=== PATIENT | male | born 1940 | race African-American/Black ===

== ENCOUNTER 2016-11-02 21:35 | Emergency (ER) | payer OTHER, MEDICARE ==
[~2016-11-02] VITALS: Ht 175.3 cm; Wt 83.9 kg
[~2016-11-02 21:35] MED LIST: AMLODIPINE BESY10 M1 PO; CLOPIDOGREL75 M1 PO; CYCLOBENZAPRINE5 M2 PO; DOXYCYCLINE HY100 M2 PO; GLIPIZIDE5 M2 PO; HYDRODIURIL 2525 MG PO; JANUVIA50 M1 PO; LISINOPRIL20 M1 PO; METHOTREXATE2.5 M2 PO; METOPROLOL SUCC25 M1 PO; NASONEX17 GM NASB; NEXIUM 40MG40 MG PO; PREDNISONE5 M1 PO; TESSALON PERLE100 M1 PO; TYLENOL WITH C1 EACH PO
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
--- NOTE | 2016-11-02 23:19 | RADIOLOGY REPORT ---
EXAMINATION: XR PELVIS AND HIP, LEFT XR ELBOW, LEFT CLINICAL INFORMATION: Fall. Left elbow and hip strike. Pain. Rule out fracture. COMPARISON: CT abdomen pelvis dated 06/11/2015. TECHNIQUE: AP view the pelvis and AP and frog-leg lateral views of the left hip. AP, lateral, and both oblique views of the left elbow FINDINGS: Pelvis and left hip: No acute fracture or malalignment. Minimal degenerative arthritis is present in the hips, characterized by small marginal osteophytes. SI joints are well-preserved. Calcific atherosclerosis is present in the iliac arteries. There is mild degenerative spondylosis in the lower lumbar spine. Left elbow: No fracture or malalignment. No joint effusion. Joint spaces are well-preserved. Tiny marginal osteophytes are present at the olecranon and coronoid process. Soft tissues are unremarkable. IMPRESSION: 1. No acute fracture or malalignment in the pelvis, left hip, and left elbow. 2. Minimal degenerative arthritis in the hips and left elbow.
[2016-11-02 23:58] VITALS: BP 176/85
== END 2016-11-03 00:03 ==
LOC: ERH 21:35
DX: S50.02XA Contusion of left elbow, initial encounter (principal); S70.02XA Contusion of left hip, initial encounter; Z79.01 Long term (current) use of anticoagulants; W19.XXXA Unspecified fall, initial encounter
CPT/HCPCS: 73080-LT; 73502-LT

== ENCOUNTER 2017-04-14 10:30 | Emergency (ER) | payer OTHER, MEDICARE ==
[~2017-04-14] VITALS: Ht 175.3 cm; Wt 84.8 kg
--- NOTE | 2017-04-14 12:10 | ED GI/GU/ABDOMINAL COMPLAINT ---
History of Present Illness General Chief Complaint: Abdominal Pain/Flank Pain Stated Complaint: ABD PAIN X 2WEEKS Source: patient Exam Limitations: no limitations Vital Signs & Intake/Output Vital Signs & Intake/Output Vital Signs Date Time Temp Pulse Resp B/P B/P Pulse O2 O2 Flow FiO2 Mean Ox Delivery Rate 04/14 1552 97.9 58 18 165/80 100 Room Air 04/14 1335 97.3 51 18 169/81 98 Room Air 04/14 1057 99.2 60 18 207/93 97 Room Air Allergies Coded Allergies: aspirin (SOB 11/02/16) Reconcile Medications Amlodipine Besylate 10 MG TABLET 1 TAB PO DAILY HEART (Reported) Atorvastatin Calcium 40 MG TABLET 1 TAB PO DAILY CHOLESTEROL (Reported) Clopidogrel Bisulfate (Clopidogrel) 75 MG TABLET 1 TAB PO DAILY BLOOD THINNER (Reported) Folic Acid 1 MG TABLET 1 TAB PO DAILY SUPPLEMENT (Reported) Glipizide 5 MG TABLET 1 TAB PO DAILY DIABETES (Reported) Lisinopril 20 MG TABLET 1.5 TAB PO DAILY HEART (Reported) Magnesium Citrate (Citrate Of Magnesia) 300 ML SOLUTION 296 ML PO ONCE PRN CONSTIPATION Methotrexate 2.5 MG TABLET 6 TAB PO QWED RA (Reported) Metoprolol Succinate 25 MG TAB 1 TAB PO DAILY HEART (Reported) Mometasone Furoate (Nasonex) 50 MCG SPRAY.PUMP 2 SPRAY NASB DAILY PRN congestion Omeprazole Magnesium (Prilosec Otc) 20 MG TABLET.DR 1 TAB PO DAILY GASTRITIS Prednisone 5 MG TABLET 1 TAB PO DAILY RA (Reported) Sitagliptin Phosphate (Januvia) 50 MG TABLET 1 TAB PO DAILY DIABETES ( Reported) Triage Note: 76 YEAR OLD MALE STATES THAT FOR THE PAST 2 WEEKS HE HAS BEEN HAVING MID ABD CRAMPING, PT HAS BEEN TAKING OTC ZANTAC WITH NO RELIEF, HAS BEEN CONTIPATED AND BURPING ALOT . DENIES CP/SOB, DENIES URINARY SYMPTOMS. Triage Nurses Notes Reviewed? yes Duration: intermittent Timing: recent history Severity Numbers: 5 Location: epigastric Radiation: no radiation HPI: PT is a 76-year-old male with a past medical history of rheumatoid arthritis currently on methotrexate, hypertension, type 2 diabetes, hyperlipidemia and CVA with left-sided hemiparesis currently on Plavix who presents emergency room with a two-week history of intermittent epigastric pain that is made worse after lying down at night after eating and made better with by mouth intake. Patient denies any alcohol use or NSAID use. Patient states that he is tried multiple medications [id number] with no relief of symptoms which IS WHY patient presents to the emergency room. Last bowel movement was yesterday no blood no melena noted. Denies any fever chills,chest pain Shortness of breath cough hemoptysis back pain nausea vomiting. Patient also has tried Zantac with no relief of symptoms. Patient does admit to "stringy" bowel movements and has not had a "good bowel movement" since symptoms began Patient tried [id number] stool softener with temporary relief of symptoms however symptoms a bowel movement CHANGES has still persisted (ANJU HAHN) Past History Travel History Traveled to [place] past 21 day No Medical History Any Pertinent Medical History? 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 No (ANJU HAHN) Review of Systems Review of Systems Constitutional: Reports: no symptoms. EENTM: Reports: no symptoms. Respiratory: Reports: no symptoms. Cardiovascular: Reports: no symptoms. GI: Reports: see HPI, abdominal pain. Genitourinary: Reports: no symptoms. Musculoskeletal: Reports: no symptoms. Skin: Reports: no symptoms. Neurological/Psychological: Reports: no symptoms. Hematologic/Endocrine: Reports: no symptoms. Immunologic/Allergic: Reports: no symptoms. All Other Systems: Reviewed and Negative (ANJU HAHN) Physical Exam Physical Exam General Appearance: no apparent distress, alert Gastrointestinal: normal bowel sounds, soft, MINIMAL EPIGASTRIC PAIN, NO RUQ PAIN, NO RLQ PAIN, NO REBOUND TENDERNESS NO PERITONEAL PAIN Comments: Well-developed well-nourished person in no acute distress HEENT: Normal EENT exam Neck: Supple, no lymphadenopathy, normal range of motion without pain or tenderness Back: Nontender, no CVA tenderness. Cardiovascular: Regular rate and rhythms no murmurs rubs or gallops, normal JVP Respiratory: Chest nontender. No respiratory distress.breath sounds clear to auscultation bilaterally Extremity: No edema, no calf tenderness to palpation, normal and equal pulses. Neuro: Alert oriented x3, motor sensory normal, Skin: No appreciable rash on exposed skin, skin is warm and dry. Psych: Mood and affect is normal, memory and judgment is normal. Core Measures ACS in differential dx? Yes Severe Sepsis Present: No Septic Shock Present: No (ELISA VALENTINO,ANJU) Progress Differential Diagnosis: AAA, AMI, appendicitis, biliary colic, bowel obstruction , colon cancer, cholecystitis, diverticulitis, epididymitis, esophageal varices, gastritis, hepatitis, hernia, hemorrhoids, ischemic bowel, inflamm bowel dis, Shara-Meg tear, pancreatitis, prostatitis, peptic ulcer, PUD/GERD, perforated viscous, pyelonephritis, SBO, ureterolithiasis, urethritis, UTI/pyelo Plan of Care: Orders Procedure Date/time Status TROPONIN LEVEL 04/14 1500 Complete EKG 04/14 1500 Active EKG 04/14 1220 Active TROPONIN LEVEL 04/14 1210 Complete LIPASE 04/14 1148 Complete COMPREHENSIVE METABOLIC PANEL 04/14 1148 Complete CBC WITHOUT DIFFERENTIAL 04/14 1148 Complete AMYLASE 04/14 1148 Complete Laboratory Tests 04/14/17 1454: Troponin I < 0.01 04/14/17 1218: Troponin I Cancelled 04/14/17 1210: Anion Gap 12, Estimated GFR > 60, BUN/Creatinine Ratio 10.0, Glucose 127 H, Calcium 10.4 H, Total Bilirubin 0.8, AST 43, ALT 51, Alkaline Phosphatase 55, Troponin I < 0.01, Total Protein 7.9, Albumin 4.5, Globulin 3.4, Albumin/ Globulin Ratio 1.3, Amylase 75, Lipase 77, CBC w Diff NO MAN DIFF REQ, RBC 5.33, MCV 78.6 L, MCH 24.6 L, RDW 16.4 H, MPV 10.3, Gran % 72.9, Lymphocytes % 18.8 L, Monocytes % 5.8, Eosinophils % 2.4, Basophils % 0.1, Absolute Granulocytes 4.3, Absolute Lymphocytes 1.1 L, Absolute Monocytes 0.3, Absolute Eosinophils 0.1, Absolute Basophils 0, PUBS MCHC 31.2 L Patient on initial examination was no apparent distress and had minimal epigastric point tenderness patient otherwise had no other abdominal pain upon palpation. Patient denies any cardiovascular or respiratory complaints. Denies any melena or bright red blood after bowel movements. Patient declines pain medications when offered Patient was given GI cocktail and had complete resolution of his presenting epigastric discomfort. Patient was able tolerate by mouth and discharged. Patient had unremarkable blood work and EKG. Patient was strongly advised to follow up with [facility] Dr. Scott Patient will be prescribed PPI and bowel promotion medications. Discussed disposition plan with Dr. ARGUELLO who agrees with disposition and plan Due to history of present illness and exam findings and complete resolution of his symptoms with GI cocktail their suspicion of peptic ulcer involvement of the proximal SMALL INTESTINE Prior to discharge patient received repeat troponin and EKG in which they were unremarkable Again patient denied any cardiovascular complaints or chest pain associated with his symptoms (ANJU HAHN) Initial ED EKG: NOTED MULTIPLE ARTIFACT WITH 60 BPM SINUS RHYTHM Prior EKG: unchanged (ANJU HAHN) Departure Departure Disposition: HOME OR SELF CARE Condition: Stable Clinical Impression Primary Impression: Constipation Secondary Impressions: Colitis Referrals: LILI REID,REAGAN HOLT DO (PCP/Family) Additional Instructions: As discussed please avoid lying down after you eat a meal. Begin the prescription of Prilosec as directed for your symptoms and continue over-the- counter stool softeners and begin the prescription of magnesium citrate to improve your bowel production. On Monday if symptoms still persist follow-up with gastroenterology Dr. Scott. Prescription is awaiting a [facility]. If symptoms worsen return to emergency room Departure Forms: Customer Survey General Discharge Information Prescriptions: Current Visit Scripts Omeprazole Magnesium (Prilosec Otc) 1 TAB PO DAILY #30 TAB Magnesium Citrate (Citrate Of Magnesia) 296 ML PO ONCE PRN CONSTIPATION #296 ML Ref 1 (ANJU HAHN) PA/TELECOMMUNICATION SYSTEMS DESIGNER Co-Sign Statement Statement: ED Attending supervision documentation- [X] I saw and evaluated the patient. I have also reviewed all the pertinent lab results and diagnostic results. I agree with the findings and the plan of care as documented in the PA's/TELECOMMUNICATION SYSTEMS DESIGNER's documentation. [] I have reviewed the ED Record and agree with the PA's/TELECOMMUNICATION SYSTEMS DESIGNER's documentation. [] Additions or exceptions (if any) to the PAs/TELECOMMUNICATION SYSTEMS DESIGNER's note and plan are summarized below: [] (ENRIQUE ARGUELLO DO
[2017-04-14 12:33] LABS: ABSOLUTE BASOPHIL COUNT 0 /CUMM (0.0-0.2); ABSOLUTE EOSINOPHIL COUNT 0.1 /CUMM (0.0-0.7); ABSOLUTE GRANULOCYTE CT 4.3 /CUMM (1.4-6.5); ABSOLUTE LYMPH COUNT 1.1 /CUMM (1.2-3.4); ABSOLUTE MONOCYTE COUNT 0.3 /CUMM (0.10-0.60); BASOPHIL % 0.1 % (0.0-2.0); EOSINOPHIL % 2.4 % (0-5); GRANULOCYTE % 72.9 % (42.2-75.2); HEMATOCRIT 41.9 % (42-52); MEAN CORPUSCULAR HGB 24.6 PG (27.0-31.0); MEAN CORPUSCULAR HGB CONC 31.2 G/DL (33.0-37.0); MEAN CORPUSCULAR VOLUME 78.6 FL (80.0-94.0); MEAN PLATELET VOLUME 10.3 FL (7.4-10.4); PLATELET COUNT 207 /CUMM (130-400); RBC DISTRIBUTION WIDTH 16.4 % (11.5-14.5); RED BLOOD CELL CT 5.33 /CUMM (4.70-6.10); WHITE BLOOD CELL COUNT 5.9 /CUMM (4.8-10.8)
[2017-04-14] MEDS ORDERED: FOLIC ACID1 M1 PO (12:36)
[2017-04-14] MEDS ORDERED: ATORVASTATIN CA40 M1 PO (12:36)
[2017-04-14] MEDS ORDERED: CITRATE OF MAG300 ML PO (14:05)
[2017-04-14] MEDS ORDERED: PRILOSEC OTC20 M1 PO (14:05)
[2017-04-14 15:52] VITALS: BP 165/80
== END 2017-04-14 15:52 ==
LOC: ERH 10:30
PROVIDERS: Emergency Medicine
DX: K59.00 Constipation, unspecified (principal); K52.9 Noninfective gastroenteritis and colitis, unspecified; I10 Essential (primary) hypertension; E11.9 Type 2 diabetes mellitus without complications; Z79.84 Long term (current) use of oral hypoglycemic drugs
CPT/HCPCS: 93005; 93010

== ENCOUNTER 2017-11-08 21:34 | Inpatient (IN) | payer OTHER, MEDICARE ==
[~2017-11-08] VITALS: Ht 175.3 cm; Wt 84.4 kg
[~2017-11-08 21:34] MED LIST changes: +ATORVASTATIN CA40 M1 PO; +CITRATE OF MAG300 ML PO; +FOLIC ACID1 M1 PO; +PRILOSEC OTC20 M1 PO
--- NOTE | 2017-11-08 22:25 | ED GI/GU/ABDOMINAL COMPLAINT ---
History of Present Illness General Chief Complaint: General Adult Stated Complaint: "SHAKEY/NAUSEA" PER PT Source: patient Exam Limitations: no limitations Vital Signs & Intake/Output Vital Signs & Intake/Output Vital Signs Date Time Temp Pulse Resp B/P B/P Pulse O2 O2 Flow FiO2 Mean Ox Delivery Rate 11/09 0251 97 Room Air 11/09 0250 96.8 66 18 178/86 97 Room Air 11/09 0047 181/88 11/08 2340 200/90 11/08 2255 95 20 181/96 96 Room Air 11/08 2142 98.5 100 18 195/95 96 Room Air ED Intake and Output 11/09 0000 11/08 1200 Intake Total Output Total Balance Patient 185 lb Weight Weight Reported by Patient Measurement Method Allergies Coded Allergies: aspirin (SOB 11/02/16) Reconcile Medications Amlodipine Besylate 10 MG TABLET 1 TAB PO DAILY HEART (Reported) Atorvastatin Calcium 40 MG TABLET 1 TAB PO DAILY CHOLESTEROL (Reported) Clopidogrel Bisulfate (Clopidogrel) 75 MG TABLET 1 TAB PO DAILY BLOOD THINNER (Reported) Folic Acid 1 MG TABLET 1 TAB PO DAILY SUPPLEMENT (Reported) Glipizide 5 MG TABLET 1 TAB PO DAILY DIABETES (Reported) Lisinopril 20 MG TABLET 1.5 TAB PO DAILY HEART (Reported) Magnesium Citrate (Citrate Of Magnesia) 300 ML SOLUTION 296 ML PO ONCE PRN CONSTIPATION Methotrexate 2.5 MG TABLET 6 TAB PO QWED RA (Reported) Metoprolol Succinate 25 MG TAB 1 TAB PO DAILY HEART (Reported) Mometasone Furoate (Nasonex) 50 MCG SPRAY.PUMP 2 SPRAY NASB DAILY PRN congestion Omeprazole Magnesium (Prilosec Otc) 20 MG TABLET.DR 1 TAB PO DAILY GASTRITIS Prednisone 5 MG TABLET 1 TAB PO DAILY RA (Reported) Sitagliptin Phosphate (Januvia) 50 MG TABLET 1 TAB PO DAILY DIABETES ( Reported) Triage Note: PT TO ER C/C FEELING "SHAKY AND NERVOUS" X 1 HR. DENIES CHEST PAIN, SOB OR N/V/D. HX NIDDM. Triage Nurses Notes Reviewed? yes Onset: Abrupt Duration: minute(s): Timing: single episode today HPI: 77yo male with hx of HTN, CVA, DM presents to ED complaining of presyncope, nausea, dizziness, lightheadedness, "shaky feeling" prior to arrival. Patient states that he had a regular day today however he did eat [employer] chicken which she states he normally does not eat. Patient states he took a nap and when he woke up he stood up and had abrupt onset of symptoms lasting seconds. Patient states that his symptoms have resolved however he was concerned and reported here to the emergency department. Patient denies chest pain, dyspnea, visual changes, headache. (Rama Guzman) Past History Travel History Traveled to [place] past 21 day No Medical History Any Pertinent Medical History? 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 Hepatic: NONE Renal: NONE Musculoskeletal: NONE Psychiatric: NONE Endocrine: diabetes Blood Disorders: anemia Cancer(s): NONE HEARING SPECIALIST/Reproductive: NONE Surgical History Surgical History: ENDOSCOPY Psychosocial History What is your primary language Estonian Tobacco Use: Never used Family History Hx Contributory? No (Rama Guzman) Review of Systems Review of Systems Constitutional: Reports: see HPI. EENTM: Reports: no symptoms. Respiratory: Reports: no symptoms. Cardiovascular: Reports: see HPI. GI: Reports: see HPI. Genitourinary: Reports: no symptoms. Musculoskeletal: Reports: no symptoms. Skin: Reports: no symptoms. Neurological/Psychological: Reports: see HPI. Hematologic/Endocrine: Reports: no symptoms. Immunologic/Allergic: Reports: no symptoms. All Other Systems: Reviewed and Negative (Rama Guzman) Physical Exam Physical Exam General Appearance: well developed/nourished, no apparent distress, alert, awake Head: atraumatic, normal appearance Eyes: Left: PERRL. Right: other (surgical pupil). Bilateral: normal appearance, EOMI. Ears, Nose, Throat, Mouth: hearing grossly normal, moist mucous membrane Neck: normal inspection, supple, full range of motion Respiratory: normal breath sounds, no respiratory distress, lungs clear Cardiovascular: regular rate/rhythm Gastrointestinal: normal bowel sounds, soft, non-tender, no organomegaly Back: normal inspection, normal range of motion Extremities: normal range of motion Neurologic/Psych: awake, alert, oriented x 3, physical therapy supervisor II-XII nml as tested Skin: intact, normal color, warm/dry Core Measures ACS in differential dx? Yes Sepsis Present: No Sepsis Focused Exam Completed? No (Rama Guzman) Progress Differential Diagnosis: AMI, ICH, CVA/TIA, hypoglycemia, electrolyte abnormality , orthostatic hypotension, presyncope, vertigo Plan of Care: Orders Procedure Date/time Status Consistent Carbohydrate 2 11/09 B Active OXYGEN SETUP (GEN) 11/09 354 Active Saline Lock 11/09 354 Active Admit to inpatient 11/09 354 Active Vital Signs 11/09 354 Active Activity/Ambulation 11/09 354 Active Code Status 11/09 354 Active TROPONIN LEVEL 11/09 244 Complete EKG 11/09 244 Active MISTAKE 11/08 2238 Active TROPONIN LEVEL 11/08 2238 Complete COMPREHENSIVE METABOLIC PANEL 11/08 2238 Complete CBC WITHOUT DIFFERENTIAL 11/08 2238 Complete EKG 11/08 2238 Active Laboratory Tests 11/09/17 0244: Troponin I 0.15 *H 11/08/17 2342: Anion Gap 16, Estimated GFR > 60, BUN/Creatinine Ratio 16.7, Glucose 177 H, Calcium 9.9, Total Bilirubin 0.6, AST 46, ALT 43, Alkaline Phosphatase 65, Troponin I 0.07, Total Protein 8.2, Albumin 4.7, Globulin 3.5, Albumin/Globulin Ratio 1.3 11/08/17 2305: CBC w Diff NO MAN DIFF REQ, RBC 5.40, MCV 78.1 L, MCH 24.4 L, RDW 16.3 H, MPV 10.2, Gran % 74.4, Lymphocytes % 12.1 L, Monocytes % 9.1, Eosinophils % 4.3, Basophils % 0.1, Absolute Granulocytes 7.3 H, Absolute Lymphocytes 1.2, Absolute Monocytes 0.9 H, Absolute Eosinophils 0.4, Absolute Basophils 0, PUBS MCHC 31.2 L Patient's EKG shows subtle T-wave changes compared to prior study however no acute ischemic changes. Patient's troponin is negative. Orthostatic vital signs are normal. Patient presented here in the emergency department, medicated with IV Vasotec with reduction in blood pressure. Patient's symptoms have resolved prior to his arrival here in the emergency department. Will obtain repeat EKG and troponin to further rule out acute coronary syndrome. The patient was discussed with Dr. Shrestha who agrees with this plan of care. The patient was signed out to Dr. Shrestha pending repeat EKG and troponin Initial ED EKG: sinus rhythm @89bpm, LVH, nonspecific ST changes Prior EKG: changed (04/14/17, slight t wave change) Hand-Off Endorsed To: Ravi Shrestha MD Endorsed Time: 57 Pending: EKG, labs (Julienne VALENTINO,Rama Sherman) Departure Departure Disposition: STILL A PATIENT Condition: Stable Referrals: Hu Michelle DO (PCP/Family) Additional Instructions: Follow-up with your primary care doctor regarding your high blood pressure, they may want to adjust the dosage of your blood pressure medications. Return to the emergency Department with any worsening symptoms or other concerns. Please note that there might be incidental findings in your evaluation that are unrelated to the current emergency department visit. Please notify your primary care doctor about this emergency department visit in order to obtain and review all of the testing performed so that these incidental findings can be monitored as needed. If you had an x-ray performed, please understand that some fractures may not be seen on the initial set of x-rays. If your symptoms persist you might need a repeat set of x-rays to check for such a fracture. If you had a laceration evaluated, please understand that foreign bodies such as glass or wood may not be visible to the naked eye or on plain x-rays. If the wound becomes red, swollen, increasingly more painful or if there is any drainage from the wound, please have it reevaluated by a physician for the possibility of a retained foreign body. If you're unable to follow up as outlined in the discharge instructions please return to the emergency department. Thank you for choosing the [facility] Emergency Department for your care. It was a pleasure to serve you today. Departure Forms: Customer Survey General Discharge Information (Rama Guzman) Departure Clinical Impression Primary Impression: Elevated troponin Secondary Impressions: Hypertension, Pre-syncope Admission Note Spoke With: Italo REID,Veronica Documentation of Exam: Documentation of any treatments & extenuating circumstances including Concerns Regarding Discharge (functional status, medication knowledge or non-compliance, living conditions, etc.) that warrant an admission rather than observation: Cardiology evaluation endocrinology evaluation serial lab exam cardiac monitoring medication adjustment continuing care discharge planning PA/WORDPRESS DEVELOPER Co-Sign Statement Statement: ED Attending supervision documentation- x I saw and evaluated the patient. I have also reviewed all the pertinent lab results and diagnostic results. I agree with the findings and the plan of care as documented in the PA's/WORDPRESS DEVELOPER's documentation. Presyncope, htn with lat t wave flattening, 2nd troponin elevated [] I have reviewed the ED Record and agree with the PA's/WORDPRESS DEVELOPER's documentation. [] Additions or exceptions (if any) to the PAs/WORDPRESS DEVELOPER's note and plan are summarized below: [] (Henrietta REID,Ravi) Critical Care Note Critical Care Note Critical Care Time: 30-74 min (40) (Henrietta REID,Ravi)
[2017-11-08 23:13] LABS: ABSOLUTE BASOPHIL COUNT 0 /CUMM (0.0-0.2); ABSOLUTE EOSINOPHIL COUNT 0.4 /CUMM (0.0-0.7); ABSOLUTE GRANULOCYTE CT 7.3 /CUMM (1.4-6.5); ABSOLUTE LYMPH COUNT 1.2 /CUMM (1.2-3.4); ABSOLUTE MONOCYTE COUNT 0.9 /CUMM (0.10-0.60); BASOPHIL % 0.1 % (0.0-2.0); EOSINOPHIL % 4.3 % (0-5); GRANULOCYTE % 74.4 % (42.2-75.2); HEMATOCRIT 42.2 % (42-52); MEAN CORPUSCULAR HGB 24.4 PG (27.0-31.0); MEAN CORPUSCULAR HGB CONC 31.2 G/DL (33.0-37.0); MEAN CORPUSCULAR VOLUME 78.1 FL (80.0-94.0); MEAN PLATELET VOLUME 10.2 FL (7.4-10.4); PLATELET COUNT 239 /CUMM (130-400); RBC DISTRIBUTION WIDTH 16.3 % (11.5-14.5); WHITE BLOOD CELL COUNT 9.9 /CUMM (4.8-10.8)
--- NOTE | 2017-11-09 05:18 | Admission Certification ---
Admission Certification Certification Statement - As attending physician, I certify that at the time of - admission, based on clinical presentation, severity of - symptoms, need for further diagnostic testing and - therapeutic interventions, and risk of adverse outcomes - without in-hospital treatment, in my clinical assessment, - this patient requires an acute hospital stay for a minimum - of two nights or longer. I have also considered psychsocial - factors such as support system, advanced age, financial - issues, cognitive issues, and failed out-patient treatments, - past re-admission history, safety of patient, and lack of - compliance as applicable. Specific rationale supporting this admission is: Hypertensive crisis, elevated troponin with EKG changes.
--- NOTE | 2017-11-09 05:25 | History & Physical ---
Garima Morales 11/09/17 0525: General Information and HPI MD Statement: I have seen and personally examined TIP BROOKS and documented this H&P. The patient is a 77 year old M who presented with a patient stated chief complaint of [dizziness]. Source of Information: patient, old records Exam Limitations: no limitations History of Present Illness: A new patient is a 77-year-old began [place] gentleman presented to the emergency room complaining of feeling nauseous and shaky. Past medical history: Hypertension, rheumatoid arthritis, prior stroke in 2005 currently on Plavix, diabetes, ??? Atrial fibrillation He is an active community dweller lives by himself; he has mild left sided weakness as a sequel of stroke that he had in 2005 otherwise is independent in his daily activities. Patient was at his usual state of health; went to the gym earlier yesterday and after workout had 8 pic [facility] for dinner and took a nap. After waking up from about 30 minutes nap patient felt slightly dizzy, shaky. He also reported feeling nauseous but he did not vomit, felt abdominal cramps and abdominal pain without reports of diarrhea. Patient denies any chest pain, palpitation feeling sweaty, clammy. He drove himself to the emergency room; initial trialnurse found his blood pressure to be significantly elevated more than 185 systolic and more than 110 diastolic. He was given 1 dose of enalapril at 1.25 IV. Over the stretch of time from 10 to 3 AM blood pressure decreased to 178/86 and patient felt much better. However they were abnormal findings in EKG (flattening of the T-wave in septolateral leads particularly V4V6) coupled with elevation of troponin from 0.07-0.15 convinced as the patient with the patient to telemetry for continuous heart monitoring. 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 Hepatic: NONE Renal: NONE Musculoskeletal: NONE Psychiatric: NONE Endocrine: diabetes Blood Disorders: anemia Cancer(s): NONE SONG WRITER/Reproductive: NONE Surgical History Surgical History: ENDOSCOPY Past Family/Social History Psychosocial History Where do you live? Home Primary Language: Uzbek Illicit Drug Use: denies illicit drug use Living Will? no Functional Ability ADLs Independent: dressing, eating, toileting, bathing. Ambulation: independent IADLs Independent: shopping, housework, finances, food prep, telephone, transportation , medication admin. Review of Systems Review of Systems Constitutional: Reports: see HPI. EENTM: Reports: no symptoms. Cardiovascular: Reports: no symptoms. Respiratory: Reports: no symptoms. GI: Reports: abdominal pain, bloating, nausea. Denies: diarrhea, distention, bowel incontinence, melena, bloody stool, changes in stool, vomiting, steatorrhea. Genitourinary: Reports: no symptoms. All Other Systems: Reviewed and Negative Exam & Diagnostic Data Last 24 Hrs of Vital Signs/I&O Vital Signs Date Time Temp Pulse Resp B/P B/P Pulse O2 O2 Flow FiO2 Mean Ox Delivery Rate 11/09 0251 97 Room Air 11/09 0250 96.8 66 18 178/86 97 Room Air 11/09 0047 181/88 11/08 2340 200/90 11/08 2255 95 20 181/96 96 Room Air 11/08 2142 98.5 100 18 195/95 96 Room Air Intake & Output 11/09 0800 11/09 0000 11/08 1600 Intake Total Output Total Balance Patient 185 lb Weight Weight Reported by Patient Measurement Method Physical Exam General Appearance Alert, Oriented X3, Cooperative, No Acute Distress HEENT PERRLA, EOMI, Mucous Membr. moist/pink Neck No JVD, No thryomegaly Cardiovascular Normal S1, Normal S2, No Murmurs, Gallops Lungs Clear to Auscultation, Normal Air Movement Abdomen Soft, No Tenderness, No Hepatospenomegaly Neurological Normal Speech Extremities No Cyanosis, No Edema Vascular Normal Pulses, Pulses Symmetrical Last 24 Hrs of Labs/Marco: Laboratory Tests 11/09/17 0244: Troponin I 0.15 *H 11/08/17 2342: Anion Gap 16, Estimated GFR > 60, BUN/Creatinine Ratio 16.7, Glucose 177 H, Calcium 9.9, Total Bilirubin 0.6, AST 46, ALT 43, Alkaline Phosphatase 65, Troponin I 0.07, Total Protein 8.2, Albumin 4.7, Globulin 3.5, Albumin/Globulin Ratio 1.3 11/08/17 2305: CBC w Diff NO MAN DIFF REQ, RBC 5.40, MCV 78.1 L, MCH 24.4 L, RDW 16.3 H, MPV 10.2, Gran % 74.4, Lymphocytes % 12.1 L, Monocytes % 9.1, Eosinophils % 4.3, Basophils % 0.1, Absolute Granulocytes 7.3 H, Absolute Lymphocytes 1.2, Absolute Monocytes 0.9 H, Absolute Eosinophils 0.4, Absolute Basophils 0, PUBS MCHC 31.2 L Diagnostic Data EKG Results Normal sinus rate and rhythm 70 beats per minutes Flattening of the T-wave in V4 V5 and V6 A segment elevation no prolongation of VA no widening of the QRS Assessment/Plan Assessment: This is a 77-year-old -[place] gentleman was admitted for hypertensive emergency and NSTEMI was possibly secondary to hypertensive crisis. Pertinent data Serial EKG showed flattening of the EKG and septolateral leads Elevation of troponin from 0.07-0.15 Patient remained asymptomatic List of active problems #1 hypertensive emergency #2 NSTEMI: Patient definitely has multiple risk factors for coronary artery disease (-[place], man at the age of 77, history of smoking and diabetes and hypertension; CVA); CARLEY score of 4 correlated with chnace of recurrent ischemia or WA of 20% and ANA score 111 ( 2% risk of in-hospital ). #3 diabetes #4 rheumatoid arthritis #5 history of CVA #6 macrocytic anemia PLAN * Admit to telemetry for continuous heart monitoring * Trending troponin and EKG; next set of troponin and its 9 AM * Continue Plavix 75 mg by mouth daily * Continue atorvastatin 40 mg by mouth daily * Call Dr. Morales in the morning * Obtain echo in the morning * Continue his antihypertensive medication metoprolol, lisinopril at his home dose * Carbohydrate consistent diet * Fingerstick 3 times a day before meals * NovoLog Insulin scale * Check HbA1c * Continue his medication for rheumatoid arthritis * Continue folic acid and check B12 level and iron studies and guaiac results * Ambulates; bathroom privileges Full code Housekeeping orders As Ranked By This Provider Problem List: 1. Hypertensive emergency Core Measures/Misc (07/16) Acute Coronary Syndrome ACS Diagnosis: Yes Congestive Heart Failure Congestive Heart Failure Diagnosis No Cerebrovascular Accident CVA/TIA Diagnosis: No VTE (View Protocol) VTE Risk Factors Acute Medical Illness No Mechanical VTE Prophylaxis d/t N/A MechProphylax Ordered No VTE Pharm Prophylaxis d/t NA PharmProphylax ordered Sepsis (View protocol) Sepsis Present: No Italo REID, [facility] 11/09/17 0535: General Information and HPI Allergies/Medications Home Med list Atorvastatin Calcium 40 MG TABLET 1 TAB PO DAILY CHOLESTEROL (Reported) Clopidogrel Bisulfate (Clopidogrel) 75 MG TABLET 1 TAB PO DAILY BLOOD THINNER (Reported) Folic Acid 1 MG TABLET 1 TAB PO DAILY SUPPLEMENT (Reported) Glipizide 5 MG TABLET 1 TAB PO DAILY DIABETES (Reported) Lisinopril 20 MG TABLET 1.5 TAB PO DAILY HEART (Reported) Magnesium Citrate (Citrate Of Magnesia) 300 ML SOLUTION 296 ML PO ONCE PRN CONSTIPATION Methotrexate 2.5 MG TABLET 6 TAB PO QWED RA (Reported) Metoprolol Succinate 25 MG TAB 1 TAB PO DAILY HEART (Reported) Mometasone Furoate (Nasonex) 50 MCG SPRAY.PUMP 2 SPRAY NASB DAILY PRN congestion Omeprazole Magnesium (Prilosec Otc) 20 MG TABLET.DR 1 TAB PO DAILY GASTRITIS Prednisone 5 MG TABLET 1 TAB PO DAILY RA (Reported) Sitagliptin Phosphate (Januvia) 50 MG TABLET 1 TAB PO DAILY DIABETES ( Reported) Attending MD Review Statement Attending Statement Attending MD Statement: examined this patient, discuss w/resident/PA/SILO ERECTOR, agreed w/resident/PA/SILO ERECTOR, reviewed images, amended to note Attending Assessment/Plan: 77 yo M with h/o HTN, T2DM, ?Afib, stroke (2005) with residual speech and left sided weakness, RA on prednisone and methotrexate, acid reflux, is here for evaluation of dizziness. Patient reports being very active at baseline, goes to the gym every other day. 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 He took a nap and when he woke up he felt lightheaded/ dizzy, shaky, that lasted a few seconds and resolved. He felt nauseous but denies vomiting. He c/o abdominal bloating/ gas. Denies diarrhea, fever or chills. He denies chest pain, palpitations, dyspnea, headache, vision changes or LOC. He does not check his BP at home. Med compliance is uncertain. Patient does not follow up with any ct scan technologist. Vitals: afebrile, HR 90-100's, BP 195/95 --> 200/90 --> 178/86 (after IV Vasotec ), sats 96% RA. Exam: AAO, in no distress, noted to be drenching in sweat, Neck supple, Chest clear, Heart S1S2 regular, systolic murmur+, Abd soft, distended, BS hypoactive, LE: no edema. Orthostats Lying 197/94 --> Sitting 181/96 --> Standing 195/102. Labs: no leukocytosis, Na 146, LFT normal, trop 0.07 --> 0.15. EKG: SR, LVH, T-wave flattening in leads V3-6 (new). Assessment and plan: 1. Pre-syncope 2. Hypertensive crisis 3. Elevated troponin with T-wave changes NSTEMI vs. Demand ischemia 4. Dietary noncompliance 5. Possible gastritis - Admit to Telemetry - Monitor for arrhythmias - Check orthostats Q shift - Serial EKG and troponin - Continue plavix, metoprolol and statin. Patient has aspirin allergy - Check TSH, free T4, lipid panel, HbA1c - Obtain echo to assess LV function, valvular disorders and pulmonary pressures - Cardio consult - Resume lisinopril 20 mg, can uptitrate based on BP. - Check AM cortisol levels, urinalysis, urine tox screen. - Continue prilosec and prednisone. Hold methotrexate for now. - Hold Januvia and glipizide. Accucheks, novolog SS. DVT ppx Lovenox. Full code.
--- NOTE | 2017-11-09 08:56 | PN- Housestaff ---
See Addendum Subjective Follow-up For: Hypertensive emergency Possible NSTEMI Subjective: The patient was seen and examined in the morning. He offers no complaints. He denies any headache, dizziness, lightheadedness, nausea, vomiting, chest pain, shortness of breath, urinary symptoms. He has mild abdominal discomfort earlier in the morning which resolved after he had a bowel movement. The patient reports that he has a residual left sided weakness after his stroke in 2005. He received IV enalapril 1.5 mg 1 upon admission. He was also started on his home dose of lisinopril 30 mg daily. His blood pressure decreased to 140 systolic/80s diastolic. Troponin trending up. Spoke with functional architect Dr. Morales; per his recommendation was that the patient on IV heparin. Dr. Morales to see the patient. Hemoccult negative. Of note, the patient has allergy to aspirin. He states that a few years ago he developed severe shortness of breath after receiving aspirin. Review of Systems Constitutional: Reports: no symptoms. Objective Last 24 Hrs of Vital Signs/I&O Vital Signs Date Time Temp Pulse Resp B/P B/P Pulse O2 O2 Flow FiO2 Mean Ox Delivery Rate 11/09 1202 77 142/80 11/09 1202 77 142/80 11/09 0927 98.0 77 20 142/80 96 Room Air 11/09 0746 98.6 70 20 170/80 Room Air 11/09 0251 97 Room Air 11/09 0250 96.8 66 18 178/86 97 Room Air 11/09 0047 181/88 11/08 2340 200/90 11/08 2255 95 20 181/96 96 Room Air 11/08 2142 98.5 100 18 195/95 96 Room Air Intake & Output 11/09 1600 11/09 0800 11/09 0000 Intake Total 200 Output Total Balance 200 Intake, Oral 200 Patient 186 lb 185 lb Weight Weight Bed scale Reported by Patient Measurement Method Physical Exam General Appearance: Alert, Cooperative, No Acute Distress Skin: No Rashes, No Breakdown, No Significant Lesion Skin Temp/Moisture Exam: Warm/Dry HEENT: Atraumatic, PERRLA, EOMI, Mucous Membr. moist/pink Neck: Supple, No JVD, No thryomegaly, +2 Carotid Pulse wo Bruit, No LAD Lymphatic: Cervical nl Cardiovascular: Regular Rate, Normal S1, Normal S2, No Murmurs, Gallops, Rubs Lungs: Clear to Auscultation, Normal Air Movement Abdomen: Normal Bowel Sounds, Soft, No Tenderness, No Hepatospenomegaly, No Masses Neurological: Normal Speech, Normal Tone, Sensation Intact, Strenght 4/5 in LUE and LLE, 5/5 in RUE and RLE Extremities: No Clubbing, No Cyanosis, No Edema, Normal Pulses, No Tenderness/ Swelling Vascular: Normal Pulses, Pulses Symmetrical Current Medications: Current Medications Sig/Kyaw Start time Last Medication Dose Route Stop Time Status Admin Atorvastatin Calcium 40 MG DAILY 11/10 1700 AC PO Atorvastatin Calcium 40 MG DAILY 11/09 1000 AC PO Clopidogrel Bisulfate 75 MG DAILY 11/09 1000 AC 11/09 PO 1225 Enalaprilat 0 .STK-MED ONE 11/09 0021 DC IV Enalaprilat 1.25 MG ONCE ONE 11/09 0015 DC 11/09 IV 11/09 0016 0036 Enoxaparin Sodium 40 MG DAILY 11/09 1000 CAN SC Folic Acid 1 MG DAILY 11/09 1000 AC 11/09 PO 1202 Heparin Sodium 5,000 UNIT ONCE ONE 11/09 0930 DC 11/09 (Porcine) IV 11/09 0931 1053 Heparin Sodium 25,000 UNIT Q24H 11/09 0930 AC 11/09 (Porcine) IV 1054 Sodium Chloride 500 ML Insulin Aspart 0 TIDAC 11/09 0800 AC 11/09 SC 1201 Lisinopril 30 MG DAILY 11/09 1000 AC 11/09 PO 1202 Methotrexate 15 MG QWED 11/15 0700 AC PO Metoprolol Succinate 25 MG DAILY 11/09 1000 AC 11/09 PO 1202 Omeprazole 0 .STK-MED ONE 11/09 0714 DC PO Omeprazole 40 MG DAILY AC 11/09 0700 AC 11/09 PO 0713 Prednisone 5 MG DAILY 11/09 1000 AC 11/09 PO 1202 Last 24 Hrs of Lab/Marco Results Last 24 Hrs of Labs/Mics: Laboratory Tests 11/09/17 0915: Troponin I 0.17 *H 11/09/17 0645: Iron 81, TIBC 293, Vitamin B12 844 11/09/17 0600: Vitamin B12 Cancelled 11/09/17 0244: Troponin I 0.15 *H 11/08/17 2342: Anion Gap 16, Estimated GFR > 60, BUN/Creatinine Ratio 16.7, Glucose 177 H, Calcium 9.9, Total Bilirubin 0.6, AST 46, ALT 43, Alkaline Phosphatase 65, Troponin I 0.07, Total Protein 8.2, Albumin 4.7, Globulin 3.5, Albumin/Globulin Ratio 1.3 11/08/17 2305: CBC w Diff NO MAN DIFF REQ, RBC 5.40, MCV 78.1 L, MCH 24.4 L, RDW 16.3 H, MPV 10.2, Gran % 74.4, Lymphocytes % 12.1 L, Monocytes % 9.1, Eosinophils % 4.3, Basophils % 0.1, Absolute Granulocytes 7.3 H, Absolute Lymphocytes 1.2, Absolute Monocytes 0.9 H, Absolute Eosinophils 0.4, Absolute Basophils 0, PUBS MCHC 31.2 L Assessment/Plan Assessment: This is a 77-year-old gentleman with past medical history significant for hypertension, diabetes,? A. 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 He was found to be in hypertensive emergency with blood pressure of 200/90 and also noticed to have elevated troponin with EKG showing T-wave flattening in V2 to V5. Impression/plan: #Elevated troponin with EKG changes: NSTEMI versus demand ischemia in a diabetic patient with hypertensive emergency. * Continue to monitor on telemetry * Trend troponins until they peak * Cardiology consult placed * Hemoccult negative, the patient was started on IV heparin * He is allergic to aspirin, on Plavix at home. #Hypertensive emergency: * He was noted to have blood pressure of 200/90 with dizziness and elevated troponin * He received * He received IV enalapril 1.5 mg 1 upon admission. He was also started on his home dose of lisinopril 30 mg daily. * His blood pressure decreased to 140 systolic/80s diastolic. * Continue with current dose of lisinopril 30 mg daily * Avoid decreasing blood pressures too rapidly. 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 Elevated troponin 2. Hypertensive emergency Pain Ratin Pain Location: NA Pain Goal: Remain pain free Pain Plan: NA Tomorrow's Labs & Rationales: CBC to monitor H&H BEP to monitor electrolytes Magnesium
[2017-11-09 09:27] VITALS: BP 142/80
[2017-11-09 15:16] VITALS: BP 134/78
[2017-11-09 18:27] LABS: PTT 79 SEC (25-37)
--- NOTE | 2017-11-09 21:50 | Cons- Cardiology ---
General Information and HPI Consulting Request Date of Consult: 11/09/17 Requested By: Keegan Nichols MD History of Present Illness: This patient is a 77 year old male with history of hypertension, dyslipidemia, diabetes and remote tobacco abuse. He also carries a history of stroke in 2005. For the past two years he has noted an epigastric discomfort that does seem to be relieved by antacids. Yesterday, this patient felt weak and shaky with mild nausea. He did have heartburn but denied a chest pressure. He also denies shortness of breath at his current level of activity and lastly denies palpitations. He is mildly active at baseline and has not noted any exertional chest pressure or discomfort. In the ER this patient was also noted to have a positive troponin. The patient was severely hypertensive at the time of admission. Allergies/Medications Allergies: Coded Allergies: aspirin (SOB 11/02/16) Home Med List: Atorvastatin Calcium 40 MG TABLET 1 TAB PO DAILY CHOLESTEROL (Reported) Clopidogrel Bisulfate (Clopidogrel) 75 MG TABLET 1 TAB PO DAILY BLOOD THINNER (Reported) Folic Acid 1 MG TABLET 1 TAB PO DAILY SUPPLEMENT (Reported) Glipizide 5 MG TABLET 1 TAB PO DAILY DIABETES (Reported) Lisinopril 20 MG TABLET 1.5 TAB PO DAILY HEART (Reported) Magnesium Citrate (Citrate Of Magnesia) 300 ML SOLUTION 296 ML PO ONCE PRN CONSTIPATION Methotrexate 2.5 MG TABLET 6 TAB PO QWED RA (Reported) Metoprolol Succinate 25 MG TAB 1 TAB PO DAILY HEART (Reported) Mometasone Furoate (Nasonex) 50 MCG SPRAY.PUMP 2 SPRAY NASB DAILY PRN congestion Omeprazole Magnesium (Prilosec Otc) 20 MG TABLET.DR 1 TAB PO DAILY GASTRITIS Prednisone 5 MG TABLET 1 TAB PO DAILY RA (Reported) Sitagliptin Phosphate (Januvia) 50 MG TABLET 1 TAB PO DAILY DIABETES ( Reported) Review of Systems Review of Systems: abdominal discomfort Past History Travel History Traveled to [place] past 21 day No Medical History Blood Transfusion Hx: No Neurological: STROKE 2005 LEFT LE/UE WEAKNESS EENT: NONE Cardiovascular: hypertension Respiratory: NONE Gastrointestinal: Mild gastritis and duodenitis, Nonerosive reflux disease Hepatic: NONE Renal: NONE Musculoskeletal: NONE Psychiatric: NONE Endocrine: diabetes Blood Disorders: anemia Cancer(s): NONE BIT TRIPOLER/Reproductive: NONE Surgical History Surgical History: ENDOSCOPY Psychosocial History Where Do You Live? Home Services at Home: None Primary Language: Luxembourgish Smoking Status: Former Smoker Illicit Drug Use: denies illicit drug use Living Will? no Functional Ability ADLs Independent: dressing, eating, toileting, bathing. Ambulation: independent IADLs Independent: shopping, housework, finances, food prep, telephone, transportation , medication admin. Exam & Diagnostic Data Vital Signs and I&O Vital Signs Date Time Temp Pulse Resp B/P B/P Pulse O2 O2 Flow FiO2 Mean Ox Delivery Rate 11/09 1516 98.6 55 20 134/78 97 Room Air 11/09 1202 77 142/80 11/09 1202 77 142/80 11/09 0927 98.0 77 20 142/80 96 Room Air 11/09 0746 98.6 70 20 170/80 Room Air 11/09 0251 97 Room Air 11/09 0250 96.8 66 18 178/86 97 Room Air 11/09 0047 181/88 11/08 2340 200/90 11/08 2255 95 20 181/96 96 Room Air 11/08 2142 98.5 100 18 195/95 96 Room Air Intake & Output 11/09 1600 11/09 0800 11/09 0000 11/08 1600 11/08 0800 11/08 0000 Intake Total 490 200 Output Total Balance 490 200 Intake, IV 90 Intake, Oral 400 200 Number 1 Bowel Movements Patient 186 lb 185 lb Weight Weight Bed scale Reported by Patient Measurement Method Physical Exam: General: WD/WN male in NAD; alert and oriented x 3 HEENT: NC/AT, PERRL, EOMI Neck: no JVD, no carotid bruit Heart: RRR with 2/6 systolic murmur Lungs: clear bilaterally Abdomen: soft, NT, +ve bowel sounds Extremities: no edema Assessment/Plan Assessment/Plan * This patient has copious risk factors for coronary artery disease along with peripheral vascular disease which is a marker for coronary artery disease. He does have a discomfort that is being attributed to heartburn. This patient is ruling in for an [place]. He does have ST elevations in V1 and V2. At present he is pain free. * Begin aspirin 324mg daily, IV heparin and Plavix 75mg daily. His aspirin allergy is likely an intolerance due to GI upset. Begin NTG paste 1" Q6 hours. Begin 25mg BID and increase Lisinopril to 40mg daily. Continue Atorvastatin. * Follow cardiac enzymes. * Obtain an echocardiogram. Consult Acknowledgment - Thank you for your consult request.
[2017-11-09 23:51] VITALS: BP 146/80
[2017-11-10 05:54] VITALS: BP 130/70
--- NOTE | 2017-11-10 07:11 | PN- Housestaff ---
Farheen Cortez 11/10/17 0710: Subjective Follow-up For: Hypertensive emergency NSTEMI Tele-Events Since Last Visit: No events Subjective: The patient was seen and examined. He offers no complaints. He denies any headache, nausea, vomiting, dizziness, lightheadedness, chest pain, shortness of breath, abdominal pain. The patient states that, 20 years ago, he received pain medication which contained an aspirin while he was injured at work, at that time he had severe respiratory symptoms and was sent to a hospital. He hasn't taken aspirin since then. Vital signs remained stable. No overnight events reported. Review of Systems Constitutional: Reports: no symptoms. Objective Last 24 Hrs of Vital Signs/I&O Vital Signs Date Time Temp Pulse Resp B/P B/P Pulse O2 O2 Flow FiO2 Mean Ox Delivery Rate 11/10 1415 98.0 73 20 144/70 96 Room Air 11/10 1204 53 140/64 97 Room Air 11/10 1021 60 164/80 11/10 0554 98.8 57 20 130/70 96 11/09 2351 98.0 58 20 146/80 95 Intake & Output 11/10 1600 11/10 0800 11/10 0000 Intake Total 673.6 100 270 Output Total 350 Balance 673.6 -250 270 Intake, IV 113.6 150 Intake, Oral 560 100 120 Number 1 Bowel Movements Output, Urine 350 Patient 186 lb Weight Weight Bed scale Measurement Method Physical Exam General Appearance: Alert, Oriented X3, Cooperative, No Acute Distress Other Physical Findings: Skin: No Rashes, No Breakdown, No Significant Lesion Skin Temp/Moisture Exam: Warm/Dry HEENT: Atraumatic, PERRLA, EOMI, Mucous Membr. moist/pink Neck: Supple, No JVD, No thryomegaly, +2 Carotid Pulse wo Bruit, No LAD Lymphatic: Cervical nl Cardiovascular: Regular Rate, Normal S1, Normal S2, No Murmurs, Gallops, Rubs Lungs: Clear to Auscultation, Normal Air Movement Abdomen: Normal Bowel Sounds, Soft, No Tenderness, No Hepatospenomegaly, No Masses Neurological: Normal Speech, Normal Tone, Sensation Intact, Strenght 4/5 in LUE and LLE, 5/5 in RUE and RLE Extremities: No Clubbing, No Cyanosis, No Edema, Normal Pulses, No Tenderness/ Swelling Vascular: Normal Pulses, Pulses Symmetrical Current Medications: Current Medications Sig/Kyaw Start time Last Medication Dose Route Stop Time Status Admin Aspirin 325 MG DAILY 11/10 1000 CAN PO Atorvastatin Calcium 80 MG 1700 11/09 1700 AC 11/09 PO 1744 Clopidogrel Bisulfate 75 MG DAILY 11/10 1000 DC PO Clopidogrel Bisulfate 75 MG DAILY 11/09 1000 AC 11/10 PO 1020 Folic Acid 1 MG DAILY 11/09 1000 AC 11/10 PO 1020 Heparin Sodium 25,000 UNIT Q24H 11/09 0930 AC 11/10 (Porcine) IV 1531 Sodium Chloride 500 ML Insulin Aspart 0 TIDAC 11/09 0800 AC 11/09 SC 1201 Lisinopril 40 MG DAILY 11/10 1000 AC 11/10 PO 1021 Lisinopril 30 MG DAILY 11/09 1000 DC 11/09 PO 1202 Methotrexate 15 MG QWED 11/15 0700 AC PO Metoprolol Succinate 25 MG DAILY 11/09 1000 AC 11/10 PO 1022 Nitroglycerin 1 GM Q6 11/10 0600 AC 11/10 TOP 1203 Omeprazole 40 MG DAILY AC 11/10 0700 AC 11/10 PO 0633 Prednisone 5 MG DAILY 11/09 1000 AC 11/10 PO 1021 Last 24 Hrs of Lab/Marco Results Last 24 Hrs of Labs/Mics: Laboratory Tests 11/10/17 0648: Anion Gap 11, Estimated GFR > 60, BUN/Creatinine Ratio 20.0, Magnesium 2.0, APTT > 120 *H, CBC w Diff NO MAN DIFF REQ, RBC 4.85, MCV 79.3 L, MCH 24.9 L, RDW 16.9 H, MPV 10.5 H, Gran % 60.9, Lymphocytes % 20.3 L, Monocytes % 10.7 H, Eosinophils % 7.8 H, Basophils % 0.3, Absolute Granulocytes 4.9, Absolute Lymphocytes 1.6, Absolute Monocytes 0.9 H, Absolute Eosinophils 0.6, Absolute Basophils 0, PUBS MCHC 31.4 L 11/09/17 2140: Troponin I 0.10 11/09/17 1711: APTT 79 H Assessment/Plan Assessment: This is a 77-year-old gentleman with past medical history significant for hypertension, diabetes,? A. 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 He was found to be in hypertensive emergency with blood pressure of 200/90 and also noticed to have elevated troponin with EKG showing T-wave flattening in V2 to V5. Impression/plan: #Elevated troponin with EKG changes: NSTEMI in a diabetic patient with hypertensive emergency. * Continue to monitor on telemetry * Troponins peaked. * Cardiology consult placed * Hemoccult negative, the patient was started on IV heparin * He is allergic to aspirin, on Plavix at home. #Hypertensive emergency: * He was noted to have blood pressure of 200/90 with dizziness and elevated troponin * He received * He received IV enalapril 1.5 mg 1 upon admission. * He was started on NTG paste 1" Q6 hours, metoprolol 25 twice a day. Dose of lisinopril was increased to 40 daily. * Avoid decreasing blood pressures too rapidly. #Diabetes: * Check hemoglobin A1c * Insulin sliding scale and fingersticks * Hold oral hypoglycemic agents #RA: * C/w methotrexate and prednisone #Continue with [employer] metoprolol, omeprazole, atorvastatin, clopidogrel #DVT prophylaxis: * On IV heparin #CODE STATUS: * Patient is full code Problem List: 1. Elevated troponin Pain Ratin Pain Location: NA Pain Goal: Remain pain free Pain Plan: NA Tomorrow's Labs & Rationales: BEP and magnesium to monitor electrolytes. Simone REID,Keegan 11/10/17 1426: Attending MD Review Statement Attending Statement Attending MD Statement: examined this patient, discuss w/resident/PA/CONSUMER EXPERIENCE CONSULTANT, agreed w/resident/PA/CONSUMER EXPERIENCE CONSULTANT, reviewed EMR data (avail), discussed with nursing, discussed with case mgmt, amended to note Attending Assessment/Plan: Patient is a 77-year-old male who presented yesterday with myocardial infarction. Currently resting comfortably in bed not in any acute distress. No events overnight and telemetry monitoring. Denies chest pain or shortness of breath. Denies palpitations. He remains hemodynamically stable. On examination heart sounds are regular. Lungs are clear to auscultation bilaterally. He has no jugular venous distention. Abdomen is soft and nontender and he has no peripheral edema. Review of his EKG shows ST elevation in leads V1 and V2. These changes are chronic, similar to EKG done in March 2017. These changes were likely brought on by long-standing left ventricular hypertrophy rather than coronary occlusion. Cardiac enzymes are trending downwards. Problems: 1. Non-ST elevation myocardial infarction. (ST changes on EKG are chronic and not acute.) 2. Stroke with left-sided deficits. 3. Hypertension Recommendations: -Complete 48 hours of IV heparin infusion. - Due to aspirin allergy he is receiving antiplatelet therapy with Plavix only. Continue statin therapy. -Blood pressure has improved since admission. Continue lisinopril and metoprolol. -Follow-up with the cardiology service regarding need and timing of cardiac catheterization.
[2017-11-10 08:14] LABS: ABSOLUTE BASOPHIL COUNT 0 /CUMM (0.0-0.2); ABSOLUTE EOSINOPHIL COUNT 0.6 /CUMM (0.0-0.7); ABSOLUTE GRANULOCYTE CT 4.9 /CUMM (1.4-6.5); ABSOLUTE LYMPH COUNT 1.6 /CUMM (1.2-3.4); ABSOLUTE MONOCYTE COUNT 0.9 /CUMM (0.10-0.60); BASOPHIL % 0.3 % (0.0-2.0); EOSINOPHIL % 7.8 % (0-5); GRANULOCYTE % 60.9 % (42.2-75.2); HEMATOCRIT 38.5 % (42-52); MEAN CORPUSCULAR HGB 24.9 PG (27.0-31.0); MEAN CORPUSCULAR HGB CONC 31.4 G/DL (33.0-37.0); MEAN CORPUSCULAR VOLUME 79.3 FL (80.0-94.0); MEAN PLATELET VOLUME 10.5 FL (7.4-10.4); RBC DISTRIBUTION WIDTH 16.9 % (11.5-14.5); RED BLOOD CELL CT 4.85 /CUMM (4.70-6.10); WHITE BLOOD CELL COUNT 8.1 /CUMM (4.8-10.8)
[2017-11-10 08:53] LABS: PTT > 120 SEC (25-37)
[2017-11-10 09:32] LABS: PLATELET COUNT 198 /CUMM (130-400)
[2017-11-10 12:04] VITALS: BP 140/64
[2017-11-10 14:15] VITALS: BP 144/70
--- NOTE | 2017-11-10 15:53 | ECHOCARDIOGRAM REPORT ---
TIP BROOKS Age: 77 : 1940 Gender: M Exam Date: 11/09/2017 16:21 Exam Location: 1 [address] Ht (in): 69 Wt (lb): 185 BSA: 2.04 BP: 178 / 86 Ordering Physician: Garima Morales MD Referring Physician: Jose Morales MD, PhD Technologist: Maura Gupta [facility] Room Number: [id number] Indications: LV FUNCTION AFTER ACS Rhythm: Sinus Technical Quality: good FINDINGS Left Ventricle Normal left ventricular size with moderate left ventricular hypertrophy. Normal systolic function with no obvious regional wall motion abnormalities. Normal left ventricular diastolic filling pattern for age. The ejection fraction is visually estimated at 70%. Right Ventricle The right ventricle is normal in size and function. Right Atrium The right atrium is normal in size. Left Atrium The left atrium is midly enlarged. The interatrial septum is intact. Mitral Valve The mitral valve is normal in structure and function. There is mild mitral regurgitation. Aortic Valve Structurally normal aortic valve without significant sclerosis or stenosis. There is trace aortic regurgitation. Tricuspid Valve The tricuspid valve is normal in structure and function. There is trace tricuspid regurgitation. Pulmonary artery systolic pressure is normal. Pulmonic Valve Structurally normal pulmonic valve. There is no pulmonic regurgitation. Pericardium Normal pericardium without effusion. No pleural effusion. Great Vessels Normal aortic root dimension. The aortic arch and great vessels are well seen and are normal. CONCLUSIONS 1. Normal EF of 70%. 2. Moderate left ventricular hypertrophy. 3. Mild left atrial enlargement. 4. Mild mitral regurgitation. 5. Trace tricuspid regurgitation. 6. Trace aortic regurgitation. Jose Morales M.D. (Electronically Signed) Final Date: 10 November 2017 15:52 MEASUREMENTS (Male / Female) Normal Values 2D ECHO LV Diastolic Diameter PLAX 3.4 cm 4.2 - 5.9 / 3.9 - 5.3 cm LV Systolic Diameter PLAX 2.1 cm 2.1 - 4.0 cm LV Fractional Shortening PLAX 38.2 % 25 - 46 % LV Ejection Fraction 2D Teich 69.6 % IVS Diastolic Thickness 1.6 cm LVPW Diastolic Thickness 1.6 cm LV Relative Wall Thickness 0.9 RV Internal Dim ED PLAX 2.9 cm 1.9 - 3.8 cm LVOT Diameter 2.1 cm Aortic Root Diameter 3.4 cm LA Systolic Diameter LX 4.3 cm 3.0 - 4.0 / 2.7 - 3.8 cm LA Volume 48.0 cm 18 - 58 / 22 - 52 cm Ascending Aorta Diameter 3.6 cm DOPPLER AV Peak Velocity 134.0 cm/s AV Peak Gradient 7.2 mmHg AV Mean Velocity 93.9 cm/s AV Mean Gradient 4.0 mmHg AV Velocity Time Integral 32.0 cm LVOT Peak Velocity 123.0 cm/s LVOT Peak Gradient 6.1 mmHg LVOT Mean Velocity 80.7 cm/s LVOT Mean Gradient 3.0 mmHg LVOT Velocity Time Integral 27.4 cm LVOT Stroke Volume 94.9 cm AV Area Cont Eq vti 3.0 cm AV Area Cont Eq pk 3.2 cm MV Peak Velocity 122.0 cm/s MV Peak Gradient 6.0 mmHg MV Mean Velocity 73.3 cm/s MV Mean Gradient 3.0 mmHg Mitral E Point Velocity 113.0 cm/s Mitral A Point Velocity 112.0 cm/s Mitral E to A Ratio 1.0 MV PHT Velocity 124.0 cm/s MV Deceleration [facility] 423.0 cm/s MV Pressure Half Time 87.9 ms MV Area PHT 2.5 cm MV Deceleration Time 267.0 ms TR Peak Velocity 138.0 cm/s TR Peak Gradient 7.6 mmHg Right Atrial Pressure 5.0 mmHg Pulmonary Artery Systolic Pressu 12.6 mmHg Right Ventricular Systolic Press 12.6 mmHg PV Peak Velocity 114.0 cm/s PV Peak Gradient 5.2 mmHg PV Mean Velocity 83.0 cm/s PV Mean Gradient 3.0 mmHg PV Velocity Time Integral 25.6 cm LV E' Lateral Velocity 11.0 cm/s Mitral E to LV E' Lateral Ratio 10.3 LV E' Septal Velocity 6.4 cm/s Mitral E to LV E' Septal Ratio 17.6
--- NOTE | 2017-11-10 16:35 | Patient Discharge Instructions ---
Discharge Instructions General Discharge Information You were seen/treated for: Myocardial infarction Special Instructions: -Please follow-up with your PCP within a week of discharge. -Please follow-up with natural resources professor, Dr. Morales within a week of discharge. -Please take your medications as instructed. -Please return to the hospital if your symptoms not improve/worsen. Diet Recommended Diet: Diabetic, Heart Healthy Activity Additional ACTIVITY Info: As tolerated Acute Coronary Syndrome Inclusion Criteria At DC or during hospital stay patient has or had the following: ACS DIAGNOSIS Yes Discharge Core Measures Meds if any: Prescribed or Continued at Discharge SOWMYA/ARB if EF <40% Yes Aspirin No (allergic to aspirin) Beta-Mirza Yes Statin Yes Meds if any: NOT Prescribed or Continued at Discharge No Aspirin d/t Allergy Congestive Heart Failure Inclusion Criteria At DC or during hospital stay patient has or had the following: CHF DIAGNOSIS No Discharge Core Measures Meds if any: Prescribed or Continued at Discharge Meds if any: NOT Prescribed or Continued at Discharge Cerebrovascular accident Inclusion Criteria At DC or during hospital stay patient has or had the following: CVA/TIA Diagnosis No Discharge Core Measures Meds if any: Prescribed or Continued at Discharge Meds if any: NOT Prescribed or Continued at Discharge Venous thromboembolism Inclusion Criteria VTE Diagnosis No VTE Type NONE VTE Confirmed by (Test) NONE Discharge Core Measures - Per Current guidelines, there needs to be overlap - treatment for the first 5 days of Warfarin therapy. - If discharged on Warfarin prior to 5 days of - overlap therapy, the patient will need to be - assessed for post discharge needs including - *Post discharge parental anticoagulation - *Warfarin and/or parental anticoagulation education - *Follow up date to check INR post discharge At least 5 days overlap therapy as Inpatient No Meds if any: Prescribed or Continued at Discharge Note: Overlap Therapy is Warfarin and Anticoagulant Meds if any: NOT Prescribed or Continued at Discharge
[2017-11-10] MEDS ORDERED: NITRO-BID1 GM TOP (16:42)
[2017-11-10] MEDS ORDERED: ZESTRIL40 M1 PO (16:42)
[2017-11-10] MEDS ORDERED: ATORVASTATIN CA80 M1 PO (16:42)
[2017-11-10 18:48] LABS: PTT 57 SEC (25-37)
--- NOTE | 2017-11-10 21:18 | PN- Cardiology ---
Subjective Subjective: * This patient now feels back to baseline. * sinus rhythm * echo shows a normal EF with moderate LVH * cardiac enzymes have normalized Objective Vital Signs and I&Os Vital Signs Date Time Temp Pulse Resp B/P B/P Pulse O2 O2 Flow FiO2 Mean Ox Delivery Rate 11/10 1415 98.0 73 20 144/70 96 Room Air 11/10 1204 53 140/64 97 Room Air 11/10 1021 60 164/80 11/10 0554 98.8 57 20 130/70 96 11/09 2351 98.0 58 20 146/80 95 Intake & Output 11/10 1600 11/10 0800 11/10 0000 11/09 1600 11/09 0800 11/09 0000 Intake Total 673.6 100 270 490 200 Output Total 350 Balance 673.6 -250 270 490 200 Intake, IV 113.6 150 90 Intake, Oral 560 100 120 400 200 Number 1 1 Bowel Movements Output, Urine 350 Patient 186 lb 186 lb 185 lb Weight Weight Bed scale Bed scale Reported by Patient Measurement Method Physical Exam: General: WD/WN male in NAD; alert and oriented x 3 HEENT: NC/AT, PERRL, EOMI Neck: no JVD, no carotid bruit Heart: RRR with 2/6 systolic murmur Lungs: clear bilaterally Abdomen: soft, NT, +ve bowel sounds Extremities: no edema Assessment/Plan Assessment/Plan * This patient has subendocardial ischemia related to severe hypertension with a NSTEMI. Stop IV heparin and continue Plavix. No aspirin due to suspected true allergy. Continue Lisinopril, Metoprolol and a statin. Change to NTG patch at 0.4mg/hr for 12 hours daily. If patient is comfortable with well controlled BP tomorrow then he will be discharged with a plan for elective cardiac catheterization early next week. Continue telemetry? Yes
[2017-11-10 23:04] VITALS: BP 150/88
--- NOTE | 2017-11-11 06:33 | PN- Housestaff ---
See Addendum Subjective Follow-up For: Hypertensive emergency NSTEMI Subjective: Patient was seen and examined this moring, vitals stable, BP Systolic 140/150. No overnight events. Review of Systems Constitutional: Reports: see HPI. Objective Last 24 Hrs of Vital Signs/I&O Vital Signs Date Time Temp Pulse Resp B/P B/P Pulse O2 O2 Flow FiO2 Mean Ox Delivery Rate 11/10 2304 98.3 75 20 150/88 98 Room Air 11/10 1415 98.0 73 20 144/70 96 Room Air 11/10 1204 53 140/64 97 Room Air 11/10 1021 60 164/80 Intake & Output 11/11 0800 11/11 0000 11/10 1600 Intake Total 240 580.8 673.6 Output Total 300 800 Balance -60 -219.2 673.6 Intake, IV 100.8 113.6 Intake, Oral 240 480 560 Number 0 0 1 Bowel Movements Output, Urine 300 800 Patient 84.37 kg Weight Weight Bed scale Measurement Method Physical Exam General Appearance: Alert, Oriented X3 Skin: No Rashes HEENT: Atraumatic, PERRLA Cardiovascular: Regular Rate, Normal S1, Normal S2, No Murmurs Lungs: Clear to Auscultation, Normal Air Movement Abdomen: Normal Bowel Sounds, Soft, No Tenderness Extremities: No Clubbing, No Cyanosis, No Edema, Normal Pulses Assessment/Plan Assessment: This is a 77-year-old gentleman with past medical history significant for hypertension, diabetes,? A. 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 He was found to be in hypertensive emergency with blood pressure of 200/90 and also noticed to have elevated troponin with EKG showing T-wave flattening in V2 to V5. Impression/plan: #Elevated troponin with EKG changes: NSTEMI in a diabetic patient with hypertensive emergency. * Continue to monitor on telemetry * Troponins peaked. * Cardiology consult appreciated * DC IV heparin * Continue Plavix, pt is allergic to aspirin * Continue statin, lisinopril, metoprolo * Start NTG patch at 0.4mg/hr for 12 hours daily * If patient is comfortable with well controlled BP tomorrow then he will be discharged with a plan for elective cardiac catheterization early next week. #Hypertensive emergency: * He was noted to have blood pressure of 200/90 with dizziness and elevated troponin * He received * He received IV enalapril 1.5 mg 1 upon admission. 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 Elevated troponin Pain Ratin Pain Location: N/A Pain Goal: Pain 4 or less Pain Plan: See medication Tomorrow's Labs & Rationales: CBC, BMP
[2017-11-11 06:37] VITALS: BP 150/80
[2017-11-11 09:32] VITALS: BP 150/80
[2017-11-11] MEDS ORDERED: NITROSTAT0.4 M1 SL (12:59)
[2017-11-11] MEDS ORDERED: ATORVASTATIN CA80 M1 PO (13:01)
[2017-11-11] MEDS ORDERED: ZESTRIL40 M1 PO (13:01)
--- NOTE | 2017-11-11 15:52 | PN- Cardiology ---
Subjective Subjective: Stable today with no recurrence of any symptoms. Ambulating without difficulty. Objective Vital Signs and I&Os Vital Signs Date Time Temp Pulse Resp B/P B/P Pulse O2 O2 Flow FiO2 Mean Ox Delivery Rate 11/11 0932 50 150/80 11/11 0932 50 150/80 11/11 0637 98.1 50 20 150/80 96 Room Air 11/10 2304 98.3 75 20 150/88 98 Room Air Intake & Output 11/11 1600 11/11 0800 11/11 0000 11/10 1600 11/10 0800 11/10 0000 Intake Total 200 240 580.8 673.6 100 270 Output Total 300 800 350 Balance 200 -60 -219.2 673.6 -250 270 Intake, IV 100.8 113.6 150 Intake, Oral 200 240 480 560 100 120 Number 0 0 1 Bowel Movements Output, Urine 300 800 350 Patient 186 lb Weight Weight Bed scale Measurement Method Current Medications: Current Medications Sig/Kyaw Start time Last Medication Dose Route Stop Time Status Admin Atorvastatin Calcium 80 MG 1700 11/09 1700 DCD 11/10 PO 1632 Bismuth Subsalicylate 30 ML ONCE ONE 11/11 0300 DC 11/11 PO 11/11 0301 0321 Clopidogrel Bisulfate 75 MG DAILY 11/09 1000 DCD 11/11 PO 0933 Folic Acid 1 MG DAILY 11/09 1000 DCD 11/11 PO 0932 Heparin Sodium 5,000 UNIT Q8 11/11 0645 DCD 11/11 (Porcine) SC 0942 Heparin Sodium 2,530 UNIT ONE ONE 11/10 2030 DC 11/10 (Porcine) IV 11/10 Heparin Sodium 25,000 UNIT Q24H 11/09 0930 DC 11/10 (Porcine) IV 1531 Sodium Chloride 500 ML Insulin Aspart 0 TIDAC 11/09 0800 DCD 11/11 SC 1309 Lisinopril 40 MG DAILY 11/10 1000 DCD 11/11 PO 0932 Methotrexate 15 MG QWED 11/15 0700 DCD PO Metoprolol Succinate 25 MG DAILY 11/09 1000 DCD 11/11 PO 0932 Nitroglycerin 0.4 MG DAILY 11/11 1000 DCD 11/11 TOP 0933 Nitroglycerin 1 GM Q6 11/10 0600 DC 11/10 TOP 2300 Omeprazole 40 MG DAILY AC 11/10 0700 DCD 11/11 PO 0643 Potassium Chloride 40 MEQ ONCE ONE 11/10 1645 DC 11/10 PO 11/10 1646 1817 Prednisone 5 MG DAILY 11/09 1000 DCD 11/11 PO 0932 Results Last 48 Hrs of Labs/Mics: Laboratory Tests 11/10/17 1630: APTT 57 H 11/10/17 0648: Anion Gap 11, Estimated GFR > 60, BUN/Creatinine Ratio 20.0, Magnesium 2.0, APTT > 120 *H, CBC w Diff NO MAN DIFF REQ, RBC 4.85, MCV 79.3 L, MCH 24.9 L, RDW 16.9 H, MPV 10.5 H, Gran % 60.9, Lymphocytes % 20.3 L, Monocytes % 10.7 H, Eosinophils % 7.8 H, Basophils % 0.3, Absolute Granulocytes 4.9, Absolute Lymphocytes 1.6, Absolute Monocytes 0.9 H, Absolute Eosinophils 0.6, Absolute Basophils 0, PUBS MCHC 31.4 L 11/09/17 2140: Troponin I 0.10 11/09/17 1711: APTT 79 H Assessment/Plan Assessment/Plan Assessment: 1. Minimally elevated troponin consistent with type II [place] 2. Hypertensive urgency 3. Diabetes 4. History of CVA 5. Rheumatoid arthritis 6. Anemia Recommendation: -Ambulate the patient today. -If the patient remains a symptomatically, he can be discharged on his current medication regimen for follow-up with Dr. Morales as an outpatient for cardiac catheterization.
--- NOTE | 2017-11-12 08:42 | Discharge Summary ---
Visit Information Visit Dates Admission Date: 11/09/17 Discharge Date: 11/11/17 Hospital Course Course Attending Physician: Keegan Nichols MD Primary Care Physician: Hu Michelle DO Consulting Request: Consulting Specialty: Cardiology Hospital Course: This is a 77-year-old gentleman with past medical history significant for hypertension, diabetes,? A. 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 He was found to be in hypertensive emergency with blood pressure of 200/90 and also was noted to have elevated troponin with EKG showing T-wave flattening in V3 to V6. Vital signs on admission: Vital Signs Date Time Temp Pulse Resp B/P B/P Pulse O2 O2 Flow FiO2 Mean Ox Delivery Rate 11/09 0251 97 Room Air 11/09 0250 96.8 66 18 178/86 97 Room Air 11/09 0047 181/88 11/08 2340 200/90 11/08 2255 95 20 181/96 96 Room Air 11/08 2142 98.5 100 18 195/95 96 Room Air Physical exam at the time of admission:General Appearance Alert, Oriented X3, Cooperative, No Acute Distress HEENT PERRLA, EOMI, Mucous Membr. moist/pink Neck No JVD, No thryomegaly Cardiovascular Normal S1, Normal S2, No Murmurs, Gallops Lungs Clear to Auscultation, Normal Air Movement Abdomen Soft, No Tenderness, No Hepatospenomegaly Neurological Normal Speech Extremities No Cyanosis, No Edema Vascular Normal Pulses, Pulses Symmetrical Pertinent lab data on admission: 11/09/17 0244: Troponin I 0.15 *H 11/08/17 2342: Anion Gap 16, Estimated GFR > 60, BUN/Creatinine Ratio 16.7, Glucose 177 H, Calcium 9.9, Total Bilirubin 0.6, AST 46, ALT 43, Alkaline Phosphatase 65, Troponin I 0.07, Total Protein 8.2, Albumin 4.7, Globulin 3.5, Albumin/Globulin Ratio 1.3 11/08/17 2305: CBC w Diff NO MAN DIFF REQ, RBC 5.40, MCV 78.1 L, MCH 24.4 L, RDW 16.3 H, MPV 10.2, Gran % 74.4, Lymphocytes % 12.1 L, Monocytes % 9.1, Eosinophils % 4.3, Basophils % 0.1, Absolute Granulocytes 7.3 H, Absolute Lymphocytes 1.2, Absolute Monocytes 0.9 H, Absolute Eosinophils 0.4, Absolute Basophils 0, PUBS MCHC 31.2 L EKG: SR, LVH, T-wave flattening in leads V3-6 (new). #Elevated troponin with EKG changes: NSTEMI in a diabetic patient with hypertensive emergency. He was monitored on telemetry. Cardiology was consulted. The patient was started on IV heparin after Hemoccult was negative. The patient was reported to have severe allergy to aspirin. The patient stated that, 20 years ago, he received pain medication which contained an aspirin while he was injured at work, at that time he had severe respiratory symptoms and was sent to a hospital. He hasn't taken aspirin since then. For this reason reason, he was not given aspirin on this admission. He was maintained on his home dose of Plavix. Echocardiogram revealed normal left ventricular size with moderate left ventricular hypertrophy, normal systolic function with no obvious regional wall motion abnormalities, normal left ventricular diastolic filling pattern for age, EF of 70%. Mild left atrial enlargement, mild mitral regurgitation, trace tricuspid regurgitation, trace aortic regurgitation. IV heparin infusion was stopped after 48 hours. He was instructed to follow-up with cardiology upon discharge for elective cardiac catheterization. He has been advised to return to the emergency room for evaluation should he develop chest pain, shortness of breath or lightheadedness. #Hypertensive emergency: The patient was noted to have blood pressure of 200/90 with dizziness and elevated troponin on presentation to the hospital. He received IV enalapril 1.5 mg 1 upon admission. Per cardiology recommendations, He was started on NTG paste. 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 Dose of lisinopril was increased to 40 daily. #Diabetes: Oral hypoglycemic agents were held. Hemoglobin A1c 8.1. We was maintained on Insulin sliding scale. Blood glucose levels were monitored closely. 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 He receives his methotrexate on weekly basis; was not required during his hospital stay. 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 #There was a question of atrial fibrillation on records however patient remained in normal sinus rhythm all through this hospital stay. Allergies: Coded Allergies: aspirin (SOB 11/02/16) Significant Procedures: Echocardiogram 11/09/2017: FINDINGS Left Ventricle Normal left ventricular size with moderate left ventricular hypertrophy. Normal systolic function with no obvious regional wall motion abnormalities. Normal left ventricular diastolic filling pattern for age. The ejection fraction is visually estimated at 70%. Right Ventricle The right ventricle is normal in size and function. Right Atrium The right atrium is normal in size. Left Atrium The left atrium is midly enlarged. The interatrial septum is intact. Mitral Valve The mitral valve is normal in structure and function. There is mild mitral regurgitation. Aortic Valve Structurally normal aortic valve without significant sclerosis or stenosis. There is trace aortic regurgitation. Tricuspid Valve The tricuspid valve is normal in structure and function. There is trace tricuspid regurgitation. Pulmonary artery systolic pressure is normal. Pulmonic Valve Structurally normal pulmonic valve. There is no pulmonic regurgitation. Pericardium Normal pericardium without effusion. No pleural effusion. Great Vessels Normal aortic root dimension. The aortic arch and great vessels are well seen and are normal. CONCLUSIONS 1. Normal EF of 70%. 2. Moderate left ventricular hypertrophy. 3. Mild left atrial enlargement. 4. Mild mitral regurgitation. 5. Trace tricuspid regurgitation. 6. Trace aortic regurgitation. Jose Morales M.D. (Electronically Signed) Disposition Summary Disposition Principal Diagnosis: NSTEMI Additional Diagnosis: Hypertensive emergency Discharge Disposition: home or self care Discharge Instructions General Discharge Information Code Status: Full Code Patient's Diet: Diabetes, heart healthy Patient's Activity: As tolerated Follow-Up Instructions/Appts: -Please follow-up with your PCP within a week of discharge. -Please follow-up with plaster machine operator, Dr. Morales within a week of discharge. -Please take your medications as instructed. -Please return to the hospital if your symptoms not improve/worsen. Medications at Discharge Discharge Medications: Stop taking the following medications: Lisinopril (Lisinopril) 20 MG TABLET ORAL DAILY Qty = 135 Amlodipine Besylate (Amlodipine Besylate) 10 MG TABLET ORAL DAILY Atorvastatin Calcium (Atorvastatin Calcium) 40 MG TABLET ORAL DAILY Qty = 90 Continue taking these medications: Metoprolol Succinate (Metoprolol Succinate) 25 MG TAB 1 Tablet ORAL DAILY Qty = 30 Comments: Last Taken:11/11/17 Time:1000 AM Methotrexate (Methotrexate) 2.5 MG TABLET 6 Tablet ORAL EVERY MONDAY Qty = 30 Clopidogrel Bisulfate (Clopidogrel) 75 MG TABLET 1 Tablet ORAL DAILY Qty = 30 Comments: Last Taken:11/11/17 Time:1000 AM Prednisone (Prednisone) 5 MG TABLET 1 Tablet ORAL DAILY Qty = 90 Comments: Last Taken:11/11/17 Time:1000 AM Glipizide (Glipizide) 5 MG TABLET 1 Tablet ORAL DAILY Qty = 30 Sitagliptin Phosphate (Januvia) 50 MG TABLET 1 Tablet ORAL DAILY Qty = 30 Mometasone Furoate (Nasonex) 50 MCG SPRAY.PUMP 2 Wright Both sides of nose DAILY as needed for congestion Qty = 1 Folic Acid (Folic Acid) 1 MG TABLET 1 Tablet ORAL DAILY Qty = 60 Comments: Last Taken:11/11/17 Time:1000 AM Omeprazole Magnesium (Prilosec Otc) 20 MG TABLET.DR 1 Tablet ORAL DAILY Qty = 30 Comments: Last Taken:11/11/17 Time:6 AM Magnesium Citrate (Citrate Of Magnesia) 300 ML SOLUTION 296 Milliliters ORAL GIVE ONCE as needed for CONSTIPATION Qty = 296 Start taking the following new medications: Atorvastatin Calcium (Atorvastatin Calcium) 80 MG TABLET 1 Tablet ORAL DAILY Qty = 30 No Refills Instructions: . Comments: Last Taken:11/10/17 Time:1700 Lisinopril (Zestril) 40 MG TABLET 1 Tablet ORAL DAILY Qty = 30 No Refills Instructions: . Comments: Last Taken:11/11/17 Time:1000 AM Nitroglycerin (Nitrostat) 0.4 MG TAB.SUBL 1 Tablet SUBLINGUAL As Directed as needed for chest pain Qty = 25 No Refills Instructions: 1st sign of attack;may repeat every 5 mins until relief; if pain still after 3 tabs in 15 minS, medical attN Comments: Last Taken:NOT GIVEN AT THE HOSPITAL Time: Copies To: Hu Michelle DO, MD Review Statement Documenting Attending: Keegan Nichols MD Other Findings: Discharged in stable condition.
== END 2017-11-11 15:00 | DRG 281 ==
LOC: ERH 21:34 → ERHI 11-09 03:55 → 1NO 11-09 03:55 → ENRESERV 11-09 07:05 → ERHI 11-09 07:42 → ENTRNSPT 11-09 08:10 → EDTRNSPT 11-09 08:37 → EDTRNSPTSTS 11-09 08:37 → CMPTRNSPT 11-09 08:48 → 1NO 11-09 08:56 → ENPENDDIS 11-11 13:01 → 1NO 11-11 15:00
PROVIDERS: Internal Medicine; Physician Assistant
DX: I21.4 Non-ST elevation (NSTEMI) myocardial infarction (principal); I69.354 Hemiplegia and hemiparesis following cerebral infarction affecting left non-dominant side; D53.9 Nutritional anemia, unspecified; E11.9 Type 2 diabetes mellitus without complications; K21.9 Gastro-esophageal reflux disease without esophagitis; I11.9 Hypertensive heart disease without heart failure; I16.1 Hypertensive emergency; M06.9 Rheumatoid arthritis, unspecified; Z79.01 Long term (current) use of anticoagulants; Z88.6 Allergy status to analgesic agent; Z87.891 Personal history of nicotine dependence; Z79.52 Long term (current) use of systemic steroids
CPT/HCPCS: 1NP; 36415; 82436; 93005; 93010; 93306; 96374; 99291; J1644; J1650; J3490; J7512

== ENCOUNTER 2018-01-10 08:02 | Inpatient (IN) | payer OTHER, MEDICARE ==
[~2018-01-10] VITALS: Ht 175.3 cm; Wt 85.0 kg
[~2018-01-10 08:02] MED LIST changes: +ATORVASTATIN CA80 M1 PO; +NITRO-BID1 GM TOP; +NITROSTAT0.4 M1 SL; +ZESTRIL40 M1 PO
--- NOTE | 2018-01-10 08:09 | ED AMS/SEIZURE/WEAK/DIZZY ---
History of Present Illness General Chief Complaint: General Adult Stated Complaint: BIBA FOR WEAKNESS Source: patient, old records Exam Limitations: no limitations Vital Signs & Intake/Output Vital Signs & Intake/Output Vital Signs Date Time Temp Pulse Resp B/P B/P Pulse O2 O2 Flow FiO2 Mean Ox Delivery Rate 01/11 2212 98.6 67 20 130/70 94 Room Air 01/11 1511 97.9 75 20 136/72 97 01/11 0814 146/76 01/11 0814 146/76 01/11 0813 146/76 01/11 0636 98.1 53 20 142/78 95 Room Air ED Intake and Output 01/12 0000 01/11 1200 Intake Total 1058 600 Output Total 650 425 Balance 408 175 Intake, IV 100 600 Intake, Oral 958 0 Output, Urine 650 425 Patient 187 lb Weight Weight Bed scale Measurement Method Allergies Coded Allergies: aspirin (SOB 11/02/16) Triage Nurses Notes Reviewed? yes Onset: Gradual Duration: hour(s): Timing: single episode today Injury Environment: home Severity: moderate HPI: 77yo male with hx of HTN, CVA on plavix, DM, ID presents to ED complaining of generalized weakness, presyncope, dizziness and unsteady gait beginning this morning. Patient states that he was getting ready to go to the gym today when symptoms began around 7 AM. Patient reports recent history of NSTEMI in October with hypertension, his blood pressure medications were increased at this time. Patient is seeing varnish inspector Dr. Morales, was at [place] within the past 2 weeks for stent placement however this was unsuccessful. Patient reports Diarrhea intermittently x2 weeks.he states that he has recently changed his diet to include more fruits and vegetables, less salts and sugars. Denies fevers, chills , weight changes, chest pain, dyspnea, vomiting, hemetemisis, headache, fall, head trauma, numbness, cough. (Julienne VALENTINO,Rama Sherman) Reconcile Medications Atorvastatin Calcium 80 MG TABLET 1 TAB PO DAILY Cholesterol . Clopidogrel Bisulfate (Clopidogrel) 75 MG TABLET 1 TAB PO DAILY BLOOD THINNER (Reported) Folic Acid 1 MG TABLET 1 TAB PO DAILY SUPPLEMENT (Reported) Glipizide 5 MG TABLET 1 TAB PO DAILY DIABETES (Reported) Lisinopril (Zestril) 40 MG TABLET 1 TAB PO DAILY Blood pressure . Magnesium Citrate (Citrate Of Magnesia) 300 ML SOLUTION 296 ML PO ONCE PRN CONSTIPATION Methotrexate 2.5 MG TABLET 6 TAB PO QWED RA (Reported) Metoprolol Succinate 25 MG TAB 1 TAB PO DAILY HEART (Reported) Mometasone Furoate (Nasonex) 50 MCG SPRAY.PUMP 2 SPRAY NASB DAILY PRN congestion Nifedipine (Nifedipine ER) 60 MG TAB.ER.24 1 TAB PO DAILY htn (Reported) Nitroglycerin (Nitrostat) 0.4 MG TAB.SUBL 1 TAB SL AD PRN chest pain 1st sign of attack;may repeat every 5 mins until relief; if pain still after 3 tabs in 15 minS, medical attN Omeprazole Magnesium (Prilosec Otc) 20 MG TABLET.DR 1 TAB PO DAILY GASTRITIS Pantoprazole Sodium (Protonix) 40 MG TABLET.DR 40 MG PO DAILY GERD (Reported) Prednisone 5 MG TABLET 1 TAB PO DAILY RA (Reported) Sitagliptin Phosphate (Januvia) 50 MG TABLET 1 TAB PO DAILY DIABETES ( Reported) Sitagliptin Phosphate (Januvia) 50 MG TABLET 50 MG PO DAILY DIABETES ( Reported) (Tabatha REID,Matt Fragoso) Past History Travel History Traveled to [place] past 21 day No Medical History Any Pertinent Medical History? 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 No (Rama Guzman) Review of Systems Review of Systems Constitutional: Reports: no symptoms. EENTM: Reports: no symptoms. Respiratory: Reports: no symptoms. Cardiovascular: Reports: see HPI. GI: Reports: see HPI. Genitourinary: Reports: no symptoms. Musculoskeletal: Reports: no symptoms. Skin: Reports: no symptoms. Neurological/Psychological: Reports: see HPI. Hematologic/Endocrine: Reports: no symptoms. Immunologic/Allergic: Reports: no symptoms. All Other Systems: Reviewed and Negative (Rama Guzman) Physical Exam Physical Exam General Appearance: well developed/nourished, no apparent distress, alert, awake Head: atraumatic, normal appearance Eyes: Left: PERRL. Right: other (surgical pupil). Bilateral: normal appearance, EOMI. 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 Yes CVA/TIA Diagnosis No Sepsis Present: No Sepsis Focused Exam Completed? No (Julienne VALENTINO,Rama Sherman) Progress Differential Diagnosis: arrythmia, alcohol intoxication, anemia, CVA/stroke, dehydration, drug intoxication, encephalitis, electrolyte imbalance, hypoglycemia, hypoxia, pneumonia, UTI/pyelo Plan of Care: Orders Procedure Date/time Status Heart Healthy Diet 01/11 L Active Heart Healthy Diet 01/11 B Complete Anticipated Discharge 01/11 UNK Active Current Medications Sig/Kyaw Start time Last Medication Dose Stop Time Status Admin Methotrexate 15 MG QWED 01/17 0700 AC (Methotrexate 2.5MG Tab) Atorvastatin Calcium 80 MG 1700 01/11 1700 AC 01/11 (Lipitor) 1630 Clopidogrel Bisulfate 75 MG DAILY 01/11 1000 AC 01/11 (Plavix) 0814 Folic Acid 1 MG DAILY 01/11 1000 AC 01/11 (Folic Acid) 0814 Lisinopril 40 MG DAILY 01/11 1000 AC 01/11 (Prinivil) 0813 Metoprolol Succinate 25 MG DAILY 01/11 1000 AC 01/11 (Toprol XL) 0814 Nifedipine 60 MG DAILY 01/11 1000 AC 01/11 (Procardia XL) 0814 Nitroglycerin 0.4 MG DAILY 01/11 1000 AC 01/11 (Transderm Nitro 0815 10MG (0.4 MG/Hr) Patch) Prednisone 5 MG DAILY 03/15 1000 AC 01/11 0814 Omeprazole 20 MG DAILY AC 01/11 0700 AC 01/12 (Prilosec) 0546 Heparin Sodium 5,000 UNIT Q8 01/10 2200 AC 01/12 (Porcine) 0546 Insulin Aspart 0 TIDAC 01/10 1700 AC 01/11 (NovoLOG) 1630 Sodium Chloride 2 SPRAY Q4P PRN 01/10 1645 AC (Nasal) Laboratory Tests 01/11/18 0621: Anion Gap 10, Estimated GFR > 60, BUN/Creatinine Ratio 15.6, CBC w Diff NO MAN DIFF REQ, RBC 4.82, MCV 79.5 L, MCH 24.8 L, MCHC 31.2 L, RDW 16.5 H, MPV 10.2, Gran % 65.4, Lymphocytes % 20.5, Monocytes % 9.1, Eosinophils % 4.6, Basophils % 0.4, Absolute Granulocytes 5.9, Absolute Lymphocytes 1.8, Absolute Monocytes 0.8 H, Absolute Eosinophils 0.4, Absolute Basophils 0 Patient had an NSTEMI in 11/09/17. Patient was scheduled for stent placement at [place] last week however unsuccessful stent placement, this patient's also follow- up with cardiology. Patient's second troponin is elevated at 0.27, increased compared to first study 3 hours ago. There are subtle EKG changes including J-point elevation in leads V2 and V3. Discussed this patient with Dr. Morales. Given patient's mild tachycardia will give dose of IV Lopressor here in the emergency department. Patient did take his Lopressor this morning. Patient to be admitted to hospitalist service for further cardiac evaluation. Patient has had no chest pain since being here in the emergency department. Case management and agree with full admission plan. Dr. Mays spoke with hospitalist regarding this patient's telemetry admission. Diagnostic Imaging: Viewed by Me: Radiology Read. Discussed w/RAD: Radiology Read. Radiology Impression: PATIENT: TIP BROOKS PRESENT AGE: 77 PATIENT ACCOUNT NO: [id number] : 42 LOCATION: [facility] ORDERING PHYSICIAN: Rama VALENTINO SERVICE DATE: 01/10/18 EXAM TYPE: RAD - XRY-CHEST XRAY, TWO VIEWS EXAMINATION: XR CHEST CLINICAL INFORMATION : Weakness COMPARISON: 10/14/2016 TECHNIQUE: 2 views of the chest were obtained. FINDINGS: The lungs are well expanded. There is no focal consolidation, edema, or effusion. No pneumothorax. The cardiomediastinal silhouette is unchanged, with a calcified aorta. No acute osseous abnormality. Degenerative changes of the spine. IMPRESSION: No acute pulmonary findings. DICTATED BY: Joel Tinoco MD DATE/TIME DICTATED:01/10/18926 ROTARY SHEAR OPERATOR:ZAHRA DATE/TIME TRANSCRIBED:01/10/18926 CONFIDENTIAL, DO NOT COPY WITHOUT APPROPRIATE AUTHORIZATION. <Electronically signed in Other Vendor System> SIGNED BY: Alejandrina REID,Joel 01/10/18935 Initial ED EKG: sinus rhythm @82bpm, LVH, nonspecific ST changes Prior EKG: changed (subtle ST changes 11/09/17) (Julienne VALENTINO,Rama Sherman) Comments: 01/10/2018 12:38:51 PM I have discussed this patient's case with Dr. Kimberly beatty. (Tabatha REID,Matt Fragoso) Departure Departure Disposition: STILL A PATIENT Condition: Stable Clinical Impression Primary Impression: NSTEMI (non-ST elevated myocardial infarction) Secondary Impressions: Elevated troponin Referrals: Hu Michelle DO (PCP/Family) Departure Forms: Customer Survey General Discharge Information Admission Note Spoke With: Kimberly Arnold MD Documentation of Exam: Documentation of any treatments & extenuating circumstances including Concerns Regarding Discharge (functional status, medication knowledge or non-compliance, living conditions, etc.) that warrant an admission rather than observation: [ Elevated troponin enzymes, possible acute and STEMI, this patient requires telemetry monitoring, repeat troponin enzymes, repeat EKGs, cardiology consult, possible medication adjustment, premature discharge would be medically unsafe.] (Rama Guzman) PA/HOTEL OR MOTEL CLEANING SUPERVISOR Co-Sign Statement Statement: ED Attending supervision documentation- [X] I saw and evaluated the patient. I have also reviewed all the pertinent lab results and diagnostic results. I agree with the findings and the plan of care as documented in the PA's/HOTEL OR MOTEL CLEANING SUPERVISOR's documentation. [] I have reviewed the ED Record and agree with the PA's/HOTEL OR MOTEL CLEANING SUPERVISOR's documentation. [] Additions or exceptions (if any) to the PAs/HOTEL OR MOTEL CLEANING SUPERVISOR's note and plan are summarized below: [] (Tabatha REID,Matt Fragoso)
[2018-01-10 08:23] LABS: ABSOLUTE BASOPHIL COUNT 0.1 /CUMM (0.0-0.2); ABSOLUTE EOSINOPHIL COUNT 0.4 /CUMM (0.0-0.7); ABSOLUTE MONOCYTE COUNT 0.9 /CUMM (0.10-0.60); BASOPHIL % 0.5 % (0.0-2.0); GRANULOCYTE % 64.9 % (42.2-75.2); HEMATOCRIT 40.3 % (42-52); MEAN CORPUSCULAR HGB CONC 31.6 G/DL (33.0-37.0); MEAN PLATELET VOLUME 9.8 FL (7.4-10.4); PLATELET COUNT 256 /CUMM (130-400); RBC DISTRIBUTION WIDTH 16.5 % (11.5-14.5); RED BLOOD CELL CT 5.11 /CUMM (4.70-6.10); WHITE BLOOD CELL COUNT 12.4 /CUMM (4.8-10.8)
--- NOTE | 2018-01-10 09:36 | RADIOLOGY REPORT ---
EXAMINATION: XR CHEST CLINICAL INFORMATION: Weakness COMPARISON: 10/14/2016 TECHNIQUE: 2 views of the chest were obtained. FINDINGS: The lungs are well expanded. There is no focal consolidation, edema, or effusion. No pneumothorax. The cardiomediastinal silhouette is unchanged, with a calcified aorta. No acute osseous abnormality. Degenerative changes of the spine. IMPRESSION: No acute pulmonary findings.
--- NOTE | 2018-01-10 13:15 | History & Physical ---
Jessenia Campbell 01/10/18 1315: General Information and HPI MD Statement: I have seen and personally examined TIP BROOKS and documented this H&P. The patient is a 77 year old M who presented with a patient stated chief complaint of []. Source of Information: patient, old records Exam Limitations: no limitations History of Present Illness: Mr. Brooks is a 77yo male with PMH of HTN, CVA in 2005 on plavix with residual LUE/LLE weakness, DM on Glipizide/Januvia, NSTEMI failed outpatient stent placement in 11/2017 presented to ED with chief complaint of generalized weakness, sudden onset presyncope/dizziness and unsteady gait after sitting up from a recliner chair this morning before he was getting ready to go to the gym around 7 AM. Patient reported recent history of NSTEMI in 10/2017 with hypertension and his lisinopril was increased to 40mg daily. About 2 weeks ago patient saw Dr. Morales and was sent for a stent placement at [facility] for his recent diagnose of 99% blockage of coronary vessel, however the stent placement was unsuccessful. In addition, patient reported alternating diarrhea/constipation with gasy and abdominal pain relieved by defecation x 3 weeks, without bloody stool. Patient changed his diet to include more fruits and vegetables, less salts and sugars, about 3 weeks ago. During clinical interaction, patient denied headache, fevers, chills, weight changes, chest pain, dyspnea, vomiting, hemetemisis, urinary abnormalities, head trauma/LOS during presyncopy, numbness, or cough. Allergies/Medications Allergies: Coded Allergies: aspirin (SOB 11/02/16) Past History Travel History Traveled to [place] past 21 day No Medical History Neurological: STROKE 2006 LEFT LE/UE WEAKNESS EENT: NONE Cardiovascular: hypertension Respiratory: NONE Gastrointestinal: Mild gastritis and duodenitis, Nonerosive reflux disease Hepatic: NONE Renal: NONE Musculoskeletal: NONE Psychiatric: NONE Endocrine: diabetes Blood Disorders: anemia Cancer(s): NONE CHUTE BUILDER/Reproductive: NONE History of MRSA: No History of VRE: No History of CDIFF: No Surgical History Surgical History: ENDOSCOPY Past Family/Social History Psychosocial History Services at Home: None Primary Language: Brazilian Smoking Status: Former Smoker (quitted 25yrs ago) ETOH Use: denies use Illicit Drug Use: denies illicit drug use Living Will? no Functional Ability ADLs Independent: dressing, eating, toileting, bathing. Ambulation: independent IADLs Independent: shopping, housework, finances, food prep, telephone, transportation , medication admin. Review of Systems Review of Systems Constitutional: Reports: see HPI. Exam & Diagnostic Data Last 24 Hrs of Vital Signs/I&O Vital Signs Date Time Temp Pulse Resp B/P B/P Pulse O2 O2 Flow FiO2 Mean Ox Delivery Rate 01/10 1311 97.0 96 19 145/90 01/10 1142 97.0 96 19 145/69 98 01/10 0827 98 01/10 0805 97.7 89 20 141/65 96 Room Air Intake & Output 01/10 1600 01/10 0800 01/10 0000 Intake Total Output Total 1000 Balance -1000 Output, Urine 1000 Patient 84.822 kg Weight Weight Reported by Patient Measurement Method Physical Exam General Appearance Alert, Oriented X3, Cooperative, No Acute Distress Skin No Rashes, No Breakdown, No Significant Lesion Skin Temp/Moisture Exam: Warm/Dry Sepsis Skin Exam (color): Normal for Ethnicity HEENT Atraumatic, PERRLA Neck Supple, No JVD Cardiovascular Regular Rate, Normal S1, Normal S2 Lungs Clear to Auscultation, Normal Air Movement Abdomen Normal Bowel Sounds, Soft, No Tenderness Neurological Normal Speech Extremities No Edema, Normal Pulses, No Tenderness/Swelling Last 24 Hrs of Labs/Marco: Laboratory Tests 01/10/18 1122: Troponin I 0.27 *H 01/10/18 1122: Lactic Acid 1.6 01/10/18 0812: Anion Gap 12, Estimated GFR > 60, BUN/Creatinine Ratio 15.0, Glucose 218 H, Lactic Acid 3.1 H, Calcium 9.6, Total Bilirubin 0.4, AST 35, ALT 40, Alkaline Phosphatase 60, Troponin I < 0.01, Total Protein 7.1, Albumin 4.0, Globulin 3.1, Albumin/Globulin Ratio 1.3, CBC w Diff NO MAN DIFF REQ, RBC 5.11, MCV 79.0 L, MCH 25.0 L, MCHC 31.6 L, RDW 16.5 H, MPV 9.8, Gran % 64.9, Lymphocytes % 24.0 , Monocytes % 7.6, Eosinophils % 3.0, Basophils % 0.5, Absolute Granulocytes 8.0 H, Absolute Lymphocytes 3.0, Absolute Monocytes 0.9 H, Absolute Eosinophils 0.4, Absolute Basophils 0.1 Diagnostic Data EKG Results NSR, borderline LVH, nonspecfic ST changes Assessment/Plan Assessment: Mr. Brooks is a 77yo male with PMH of HTN, CVA in 2005 on plavix with residual LUE/LLE weakness, DM on Glipizide/Januvia, NSTEMI failed outpatient stent placement in 11/2017 presented to ED with chief complaint of generalized weakness, sudden onset presyncope/dizziness and unsteady gait after sitting up from a recliner chair this morning before he was getting ready to go to the gym around 7 AM. Patient reported recent history of NSTEMI in 10/2017 with hypertension and his lisinopril was increased to 40mg daily, and unsuccessful stent placement by Dr. Morales 2 weeks ago. Patient reported alternating diarrhea/constipation with gasy and abdominal pain relieved by defecation x 3 weeks, without bloody stool. Patient changed his diet to include more fruits and vegetables, less salts and sugars, about 3 weeks ago. During clinical interaction, patient denied headache, fevers, chills, weight changes, chest pain, dyspnea, vomiting, hemetemisis, urinary abnormalities, head trauma/LOS during presyncopy, numbness, or cough. On admission, Vitals: VSS, BP 140s/60s-70s -CBC: Mild leukocytosis WBC 12.4, H/H 12.7/40.3, PLT 256, -BMP: WNL except Lactic acid 3.1 -> 1.6 after IVF, -Misc: Troponin 0.01 -> 0.27 -CXR: no acute process -EKG: Normal sinus rhythm with borderline left axis shift with nonspecific ST-T abnormalities. -Interventions in ER: IVF NS Bolus, Metoprolol. Assessment: Mr. Brooks is a 77yo male with PMH of HTN, CVA in 2005 on plavix with residual LUE/LLE weakness, DM on Glipizide/Januvia, NSTEMI failed outpatient stent placement in 11/2017 presented to ED with chief complaint of generalized weakness, sudden onset presyncope/dizziness and unsteady gait after sitting up from a recliner chair this morning. Possible etiology of his CC including dehydration/vasovagal syncope as patient had been losing a lot of fluid over the past 3 weeks from diarrhea, with elevation of lactic acid that resolved after IVF. The loss of fluid may also caused demend ischemia of cardiac function especially when patient had recent admission with NSTEMI as well failed stent placement, resulting elevation of troponin on admission. Recent echo 10/2017 showed >60% EF, and patient's BP had been under control after inceased dose of lisinopril. Etiology of diarrhea could be due to dietary change in addition to possible IBS as patient's symptoms aligned. Ischemic bowel disease could not be ruled out taking into account of patient's symptoms relieved from defecation/recent hx of [place], however less likely. Problem list #Elevated troponin #Weakness/Presycope 2/2 dehydration #Intermittent Diarrhea 2/2 IBS?/Ischemic bowerl disease? #Mild Leukocytosis #Lactic Acidosis, resolved #NIDDM #PMH of RA, HTN, Hx of CVA Plan - Admit to Telemetry due to elevated trop - Novolog SS + AccuChek - Will give another bag of NS 1L Bolus - Pending confirmation of meds from patient's daughter. - Pending Cardio consult by Dr. Morales - Trend trop/EKG - Patient's currently pain-free at abdomen, will consider CT Angiogram to r/o ichemia bowel disease. DVT prophylaxis Heparin + ALPS Diabetic Full Code As Ranked By This Provider Problem List: 1. Dizziness 2. Elevated troponin 3. Diarrhea 4. Blockage of coronary artery of heart Core Measures/Misc (07/16) Acute Coronary Syndrome ACS Diagnosis: No Congestive Heart Failure Congestive Heart Failure Diagnosis No Cerebrovascular Accident CVA/TIA Diagnosis: No VTE (View Protocol) VTE Risk Factors Age>40 No Mechanical VTE Prophylaxis d/t N/A MechProphylax Ordered No VTE Pharm Prophylaxis d/t NA PharmProphylax ordered Sepsis (View protocol) Sepsis Present: No Keegan Nichols MD 01/10/18 1505: Attending MD Review Statement Attending Statement Attending MD Statement: examined this patient, discuss w/resident/PA/BRUSH MACHINE SETTER, agreed w/resident/PA/BRUSH MACHINE SETTER, reviewed EMR data (avail), discussed with nursing, amended to note Attending Assessment/Plan: Patient seen and examined. Pleasant 37-year-old male with history of hypertension, stroke stroke with residual left upper and lower extremity weakness on antiplatelet therapy with Plavix due to aspirin allergy, non-insulin -dependent diabetes mellitus and coronary artery disease. Patient was admitted to [facility] in October 2017 with non-ST elevation [place]. He was followed up in the outpatient setting by his sales expert home theater and cardiac catheterization was done 3 weeks ago. He was found to have a calcified that was not amenable to angioplasty. Decision was made to manage patient medically. During the admission in October patient was markedly hypertensive. Apparently in the outpatient setting he continued to be hypertensive on his blood pressure regimen was recently adjusted by his sales expert home theater. His sales expert home theater was concerned about possible renal artery stenosis. Also significant patient's history is irritable bowel syndrome. Reports having colonoscopy done a few years ago but is unaware of the results. He has episodes of diarrhea alternating with constipation. He had one such episode over the past few days and was feeling very weak. He presented for evaluation on account of his weakness. In the ER he was found hemodynamically stable. He was found afebrile. He received IV hydration with improvement of his abdominal discomfort that he presented with. First set of cardiac enzyme was negative however second set is trending upwards gradually. On account of this he was referred to the inpatient medical service for evaluation. His EKG shows no significant ischemic changes. Patient is hemodynamically stable. He denies any complaint of chest pain palpitations or shortness of breath. On examination he is jovial. He is not in any distress. He has no jugular venous distention. Heart sounds are regular with no audible murmur. Lungs are clear to auscultation bilaterally. Abdomen is obese but soft and nontender. He has no lower extremity edema. Problems: 1. Elevated troponin; likely due to demand ischemia brought about by his dehydration in the setting of underlying coronary artery disease. 2. History of irritable bowel syndrome. 3. [id number] diabetes Plan: -Admit to the inpatient medical service. Monitor patient on the telemetry floor. -Trend cardiac enzymes. Obtain cardiology consultation. -Recommend continuation of IV hydration overnight. -Patient is currently pain-free. Abdominal exam is benign. He denies any black or bloody stools. If he does develop abdominal discomfort again will consider, CT angiogram to rule out ischemic bowel disease. This appears less likely at present given the spontaneous resolution of his symptoms. -Continue patient's outpatient hypertension regimen. -Chemical DVT prophylaxis. Matt REID,Ismail 03/14/18 1632: General Information and HPI Allergies/Medications Home Med list Atorvastatin Calcium 80 MG TABLET 1 TAB PO DAILY Cholesterol . Clopidogrel Bisulfate (Clopidogrel) 75 MG TABLET 1 TAB PO DAILY BLOOD THINNER (Reported) Folic Acid 1 MG TABLET 1 TAB PO DAILY SUPPLEMENT (Reported) Glipizide 5 MG TABLET 1 TAB PO DAILY DIABETES (Reported) Lisinopril (Zestril) 40 MG TABLET 1 TAB PO DAILY Blood pressure . Magnesium Citrate (Citrate Of Magnesia) 300 ML SOLUTION 296 ML PO ONCE PRN CONSTIPATION Methotrexate 2.5 MG TABLET 6 TAB PO QWED RA (Reported) Metoprolol Succinate 25 MG TAB 1 TAB PO DAILY HEART (Reported) Mometasone Furoate (Nasonex) 50 MCG SPRAY.PUMP 2 SPRAY NASB DAILY PRN congestion Nifedipine (Nifedipine ER) 60 MG TAB.ER.24 1 TAB PO DAILY htn (Reported) Nitroglycerin (Nitrostat) 0.4 MG TAB.SUBL 1 TAB SL AD PRN chest pain 1st sign of attack;may repeat every 5 mins until relief; if pain still after 3 tabs in 15 minS, medical attN Omeprazole Magnesium (Prilosec Otc) 20 MG TABLET.DR 1 TAB PO DAILY GASTRITIS Pantoprazole Sodium (Protonix) 40 MG TABLET.DR 40 MG PO DAILY GERD (Reported) Prednisone 5 MG TABLET 1 TAB PO DAILY RA (Reported) Sitagliptin Phosphate (Januvia) 50 MG TABLET 1 TAB PO DAILY DIABETES ( Reported) Sitagliptin Phosphate (Januvia) 50 MG TABLET 50 MG PO DAILY DIABETES ( Reported) Resident Review Statement Resident Statement: examined this patient, discussed with advertising intern, agreed with advertising intern Other Findings: 77 year old male with PMHX of HTN on 3 medications, hyperlipidemia, NIDDM, remote tobacco abuse(25 years ago), stroke in 2005, and a recent cardiac catheterization that showed two non-revascularizable 99% stenosis in the RCA and multiple 50% in the LCA. The patient presented with a chief complaint of dizziness and generalized weakness. On January 01 the patient was seen by cardiology for hypertension, BP at that time was 190s/80s, for which his medication was increased, now he is on metoprolol ER 25 mg, lisinopril 40 mg, and nifedipine ER 60 mg. The patient also has a history of irritable bowel syndrome, for the past 3 weeks he has intermittent diarrhea associated with 8/10 abdominal pain that usually starts 1-2 hours after food, wake him up from sleep and relieved by defecation. His last episode of diarrhea was 2 days ago. Prior to his presentation he felt dizzy on standing from sitting position, he also noticed fatigue for the past 2 days. The patient denies chest pain, cough, shortness breath. He also denies fever, chills, active abdominal pain, diarrhea or constipation. On the ED his blood pressure was 140s/80s, dry mouth on physical exam, and had elevated lactic acid, his symptom improved and lactic acid normalize after 500 mL normal saline bolus. The second set troponin was found mildly elevated to 0.27. Assessment and plan: #Dizziness/weakness Antihypertensive increased recently, reported recent diarrhea, both can lead to dehydration with orthostatic hypotension. Even though Cr/BUN ratio is 15, his symptom and lactic acid improved after a bolus of fluid which support the diagnosis. Plan * Monitor patient on telemetry floor * Start patient on 75 mL per hour normal saline * We will order orthostatic blood pressure measurements * We will continue antihypertensive medication, discussed with sales expert home theater. #NSTEMI Most likely supply demand mismatch. He had recent cardiac cath that showed two 99% stenosis in RCA, however stenosis was none-revascularizable because of stenosis locations. He has abdominal pain, diarrhea, and uncontrolled HTN all of which can lead to increase heart work and oxygen demand which was hard to meet in the presence of previously mentioned stenosis. This explain mild elevated troponin. Stent is not an option for this patient and next step would be CABG if needed, cardiology was consulted. Plan * We will continue IV fluid * We will continue metoprolol * We'll continue Plavix (allergic to ASA) * If third set troponin continue to be elevated, we will start patient on nitrate past, which will help decrease cardiac demand * Plan was agreed with sales expert home theater, recommendations highly appreciated. #Uncontrolled hypertension The patient is currently on 3 antihypertensive medication, BP at home is around 140s/80s. Cardiology recommended, ruling out secondary hypertension. On 03/16 aldosterone was 4, Renin was 0.25, 24 hours urine epinephrine was 9, norepinephrine was 61, epinephrine was 237, normetanephrine was 24, total metanephrine was 656, VMA was 3.5, and total catecholamine was 70. All previously mentioned result were within normal limits, which exclude pheochromocytoma and lower the possibility of renal artery stenosis, renal artery stenosis still in the differential given that renin is elevated only in 50-80% of renal artery stenosis. Plan * We will continue metoprolol, lisinopril, and nifedipine. * We'll order CT abd & pelvx to R/O renal artery stenosis and bowel ischemia * If blood pressure is not controlled with the previously mentioned medication, we can use hydralazine IV. #Recurrent abdominal pain and diarrhea The patient reported that his pain worsened 1-2 hours after food and improved with defecation. which can be explained with irritable bowel syndrome. Given the history of multiple coronary artery stenosis, uncontrolled hypertension( renal artery stenosis??), and worsening of pain and diarrhea after increase antihypertension, it is possible that the patient has chronic mesenteric ischemia (interstitial angina), especially that he had elevated lactic acid with almost normal Cr/BUN ration (mild dehydration caused lactic acid elevation). CT abd in 05/2015 showed Scattered atherosclerosis of the abdominal aorta and its branching vessels. Excluding mesectic atherostenosis and renal artery stenosis will give more room to increase BP mediations in the future if needed. Plan * We will continue the IV fluids for now * We'll order CT abd & pelvx to R/O mesectic atherosclerosis #NIDDM Plan * Stop all oral antihyperglycemic medications * Start insulin SS * Finger glucose level TID and at bed time * Low carb diet #GERD Plan * continue home dose of PPI Full code DVT PPx pharmacological and Alps Heart healthy diet Heart healthy diet
--- NOTE | 2018-01-10 15:01 | Admission Certification ---
Admission Certification Certification Statement - As attending physician, I certify that at the time of - admission, based on clinical presentation, severity of - symptoms, need for further diagnostic testing and - therapeutic interventions, and risk of adverse outcomes - without in-hospital treatment, in my clinical assessment, - this patient requires an acute hospital stay for a minimum - of two nights or longer. I have also considered psychsocial - factors such as support system, advanced age, financial - issues, cognitive issues, and failed out-patient treatments, - past re-admission history, safety of patient, and lack of - compliance as applicable. Specific rationale supporting this admission is: Hospitalization is required for management of his NSTEMI
[2018-01-10] MEDS ORDERED: PROTONIX40 M3 PO (15:17)
[2018-01-10] MEDS ORDERED: JANUVIA50 M1 PO (15:18)
[2018-01-10 16:11] VITALS: BP 128/70
[2018-01-10] MEDS ORDERED: NIFEDIPINE ER60 M2 PO (16:47)
--- NOTE | 2018-01-10 21:01 | Cons- Cardiology ---
General Information and HPI Consulting Request Date of Consult: 01/10/18 Requested By: Keegan Nichols MD History of Present Illness: Vincent is a 77 year old male with history of hypertension, dyslipidemia, diabetes and remote tobacco abuse. He also carries a history of stroke in 2005. For the past two years he has noted an epigastric discomfort that does seem to be relieved by antacids. He was recently seen at [facility] for mild nausea with weakness and shakiness. In consideration of an elevated troponin this patient was presumed to have these symptoms due to coronary artery disease. He underwent a cardiac catheterization which showed two tandem 99% stenoses in the RCA. There was also a 50%n stenosis in the LAD. The RCA stenoses were not amenable to PCI and medical therapy was opted for. This morning, this patient felt weak with mild nausea very similar to the discomfort he previously had. He reports recurrent episodes of epigastric discomfort about two hours after eating. He also has loose stools although no watery diarrhea. He otherwise denies chest pain, shortness of breath, lightheadedness or palpitations. He was noted to be normotensive upon initial arrival in the ER with a normal BUN and creatinine. He did have an elevated serum lactate level. His troponin is borderline elevated. He is mildly active at baseline and has not noted any exertional chest pressure or discomfort. Allergies/Medications Allergies: Coded Allergies: aspirin (SOB 11/02/16) Home Med List: Atorvastatin Calcium 80 MG TABLET 1 TAB PO DAILY Cholesterol . Clopidogrel Bisulfate (Clopidogrel) 75 MG TABLET 1 TAB PO DAILY BLOOD THINNER (Reported) Folic Acid 1 MG TABLET 1 TAB PO DAILY SUPPLEMENT (Reported) Glipizide 5 MG TABLET 1 TAB PO DAILY DIABETES (Reported) Lisinopril (Zestril) 40 MG TABLET 1 TAB PO DAILY Blood pressure . Magnesium Citrate (Citrate Of Magnesia) 300 ML SOLUTION 296 ML PO ONCE PRN CONSTIPATION Methotrexate 2.5 MG TABLET 6 TAB PO QWED RA (Reported) Metoprolol Succinate 25 MG TAB 1 TAB PO DAILY HEART (Reported) Mometasone Furoate (Nasonex) 50 MCG SPRAY.PUMP 2 SPRAY NASB DAILY PRN congestion Nifedipine (Nifedipine ER) 60 MG TAB.ER.24 1 TAB PO DAILY htn (Reported) Nitroglycerin (Nitrostat) 0.4 MG TAB.SUBL 1 TAB SL AD PRN chest pain 1st sign of attack;may repeat every 5 mins until relief; if pain still after 3 tabs in 15 minS, medical attN Omeprazole Magnesium (Prilosec Otc) 20 MG TABLET. 1 TAB PO DAILY GASTRITIS Pantoprazole Sodium (Protonix) 40 MG TABLET. 40 MG PO DAILY GERD (Reported) Prednisone 5 MG TABLET 1 TAB PO DAILY RA (Reported) Sitagliptin Phosphate (Januvia) 50 MG TABLET 1 TAB PO DAILY DIABETES ( Reported) Sitagliptin Phosphate (Januvia) 50 MG TABLET 50 MG PO DAILY DIABETES ( Reported) Review of Systems Review of Systems: A review of systems is unremarkable. 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 Home Services at Home: None Primary Language: Greek Smoking Status: Former Smoker (quitted 25yrs ago) ETOH Use: denies use Illicit Drug Use: denies illicit drug use Living Will? no Functional Ability ADLs Independent: dressing, eating, toileting, bathing. Ambulation: independent IADLs Independent: shopping, housework, finances, food prep, telephone, transportation , medication admin. Exam & Diagnostic Data Vital Signs and I&O Vital Signs Date Time Temp Pulse Resp B/P B/P Pulse O2 O2 Flow FiO2 Mean Ox Delivery Rate 01/10 1800 98 Room Air 01/10 1611 98.6 72 20 128/70 98 01/10 1543 70 18 160/85 97 Room Air 01/10 1421 98.7 85 20 158/74 93 Room Air 01/10 1311 97.0 96 19 145/90 01/10 1142 97.0 96 19 145/69 98 01/10 1001 97.4 88 20 138/71 98 Room Air 01/10 0827 98 01/10 0805 97.7 89 20 141/65 96 Room Air Intake & Output 01/10 1600 01/10 0800 01/10 0000 01/09 1600 01/09 0800 01/09 0000 Intake Total Output Total 1500 Balance -1500 Output, Urine 1500 Patient 187 lb Weight Weight Reported by Patient Measurement Method Physical Exam: General: WD/WN male in NAD; alert and oriented x 3 HEENT: NC/AT, PERRL, EOMI Neck: no JVD, no carotid bruit Heart: RRR with 2/6 systolic murmur Lungs: clear bilaterally Abdomen: soft, NT, +ve bowel sounds Extremities: no edema Assessment/Plan Assessment/Plan * This patient is ruling in for a NSTEMI that is likely related to supply demand mismatch. His RCA is the acute lesion but is not amenable to percutaneous intervention. Bypass surgery is not an ideal solution for this lesion which is not likely to be life threatening and is a chronic occlusion. We will try and treat him medically. For now continue his pre-admission medications and add a NTG patch 0.4mg/hr for 12 hours daily. Follow cardiac enzymes until they peak. * Will pursue a hypertensive workup for renal artery stenosis. * The patient does not have any chest pain and has a chronic atherosclerotic occlusion with collaterals. Consideration must be given to diffuse atherosclerosis in other vessels such as the renal arteries and mesenteric arteries. In consideration of the patient's abdominal discomfort after eating with nausea and his lactic acidosis which is unexplained I recommend a CT angiogram of both the renal and mesenteric arteries to look for mesenteric ischemia. The patient had loose stools but no true watery diarrhea and does not appear dehydrated. He has a normal BUN, creatinine and sodium. Consult Acknowledgment - Thank you for your consult request.
[2018-01-10 22:33] VITALS: BP 160/90
[2018-01-11 06:36] VITALS: BP 142/78
--- NOTE | 2018-01-11 07:51 | PN- Housestaff ---
Jessenia Campbell 01/11/18 0751: Subjective Follow-up For: #Elevated troponin #Weakness/Presycope 2/2 dehydration #Intermittent Diarrhea 2/2 IBS?/Ischemic bowerl disease? #Lactic Acidosis, resolved #NIDDM #PMH of RA, HTN, Hx of CVA Tele-Events Since Last Visit: SB 47-53 Subjective: No overnight event. Patient had no episode of diarrhea/ab pain since admission and slept well overnight. Patient underwent CTA ab already last night. Denied chest pain/dizziness on exertion. No other specific complaint. Review of Systems Constitutional: Reports: see HPI. Objective Last 24 Hrs of Vital Signs/I&O Vital Signs Date Time Temp Pulse Resp B/P B/P Pulse O2 O2 Flow FiO2 Mean Ox Delivery Rate 01/11 08 146/76 01/11 0814 146/76 01/11 0813 14676 01/11 0636 98.1 53 20 142/78 95 Room Air 01/10 2233 97.9 68 20 160/90 97 01/10 1800 98 Room Air 01/10 1611 98.6 72 20 128/70 98 01/10 1543 70 18 160/85 97 Room Air 01/10 1421 98.7 85 20 158/74 93 Room Air 01/10 1311 97.0 96 19 145/90 01/10 1142 97.0 96 19 145/69 98 Intake & Output 01/11 1600 01/11 0800 01/11 0000 Intake Total 600 300 Output Total 425 250 Balance 175 50 Intake, IV 600 300 Intake, Oral 0 0 Output, Urine 425 250 Patient 83.915 kg Weight Weight Bed scale Measurement Method Physical Exam General Appearance: Alert, Oriented X3, Cooperative, No Acute Distress Cardiovascular: Regular Rate Lungs: Clear to Auscultation, Normal Air Movement Abdomen: Normal Bowel Sounds, Soft, No Tenderness Neurological: Normal Speech Extremities: No Edema, Normal Pulses Current Medications: Current Medications Sig/Kyaw Start time Last Medication Dose Route Stop Time Status Admin Atorvastatin Calcium 80 MG 1700 01/11 1700 AC PO Clopidogrel Bisulfate 75 MG DAILY 01/11 1000 AC 01/11 PO 0814 Folic Acid 1 MG DAILY 01/11 1000 AC 01/11 PO 0814 Heparin Sodium 5,000 UNIT Q8 01/10 2200 AC 01/11 (Porcine) SC 0726 Insulin Aspart 0 TIDAC 01/10 1700 AC SC Lisinopril 40 MG DAILY 01/11 1000 AC 01/11 PO 0813 Methotrexate 15 MG QWED 01/17 0700 AC PO Metoprolol Succinate 25 MG DAILY 01/11 1000 AC 01/11 PO 0814 Metoprolol Tartrate 0 .STK-MED ONE 01/10 1311 DC IV Metoprolol Tartrate 5 MG ONCE ONE 01/10 1245 DC 01/10 IV 01/10 1246 1311 Nifedipine 60 MG DAILY 01/11 1000 AC 01/11 PO 0814 Nitroglycerin 0.4 MG DAILY 01/11 1000 AC 01/11 TOP 0815 Omeprazole 20 MG DAILY AC 01/11 0700 AC PO Prednisone 5 MG DAILY 01/11 1000 AC 01/11 PO 0814 Sodium Chloride 1,000 ML Q13H 01/10 1700 DC 01/11 IV 0806 Sodium Chloride 2 SPRAY Q4P PRN 01/10 1645 AC YVETTE Sodium Chloride 1,000 ML BOLUS ONE 01/10 0945 DC 01/10 IV 01/10 1144 0955 Last 24 Hrs of Lab/Marco Results Last 24 Hrs of Labs/Mics: Laboratory Tests 01/11/18 0621: Anion Gap 10, Estimated GFR > 60, BUN/Creatinine Ratio 15.6, CBC w Diff NO MAN DIFF REQ, RBC 4.82, MCV 79.5 L, MCH 24.8 L, MCHC 31.2 L, RDW 16.5 H, MPV 10.2, Gran % 65.4, Lymphocytes % 20.5, Monocytes % 9.1, Eosinophils % 4.6, Basophils % 0.4, Absolute Granulocytes 5.9, Absolute Lymphocytes 1.8, Absolute Monocytes 0.8 H, Absolute Eosinophils 0.4, Absolute Basophils 0 01/10/18 2320: Troponin I 0.49 *H 01/10/18 1728: Troponin I 0.67 *H 01/10/18 1728: Renin Pending, Aldosterone Pending 01/10/18 1642: Urine Total Volume Cancelled, U Metanephrines 24 Hr Cancelled, U Normetanephrine 24h Cancelled, U Tot Metanephrine 24h Cancelled 01/10/18 1642: Urine Total Volume Cancelled, U Vanillylmandelic Acd Cancelled Assessment/Plan Assessment: Mr. Murphy is a 77yo male with PMH of HTN, CVA in 2006 on plavix with residual LUE/LLE weakness, DM on Glipizide/Januvia, NSTEMI failed outpatient stent placement in 11/2017 presented to ED with chief complaint of generalized weakness, sudden onset presyncope/dizziness and unsteady gait after sitting up from a recliner chair this morning. Possible etiology of his CC including dehydration/vasovagal syncope as patient had been losing a lot of fluid over the past 3 weeks from diarrhea, with elevation of lactic acid that resolved after IVF. The loss of fluid may also caused demend ischemia of cardiac function especially when patient had recent admission with NSTEMI as well failed stent placement, resulting elevation of troponin on admission. Recent echo 10/2017 showed >60% EF, and patient's BP had been under control after inceased dose of lisinopril. Etiology of diarrhea could be due to dietary change in addition to possible IBS as patient's symptoms aligned. Ischemic bowel disease could not be ruled out taking into account of patient's symptoms relieved from defecation/recent hx of UT, however less likely. Problem list #Elevated troponin, 2/2 demand ischemia #Weakness/Presycope 2/2 dehydration #Intermittent Diarrhea 2/2 IBS?/Ischemic bowerl disease? #Mild Leukocytosis, resolved #Lactic Acidosis, resolved #NIDDM #PMH of RA, HTN, Hx of CVA Plan - Novolog SS + AccuChek - Trop peaked at 0.67 and now 0.45 on latest lab overnight. EKG negative for acute changes. - Appreciated cardio consult. Pending CTA ab to rule out ischemic bowel disease. - Patient's currently pain-free at abdomen, will continue monitoring for symptoms. DVT prophylaxis Heparin + ALPS Diabetic Full Code Problem List: 1. Blockage of coronary artery of heart 2. Elevated troponin Pain Ratin Pain Location: NA Pain Goal: Remain pain free Pain Plan: see AP Tomorrow's Labs & Rationales: Keegan Calderon MD 01/11/18 1157: Attending MD Review Statement Attending Statement Attending MD Statement: examined this patient, discuss w/resident/PA/RATINGS ANALYST, agreed w/resident/PA/RATINGS ANALYST, reviewed EMR data (avail), discussed with nursing, discussed with case mgmt, amended to note Attending Assessment/Plan: Patient seen and examined. Resting comfortably and not in any acute distress. No issues overnight. No events on telemetry monitoring. He is alert and oriented 3. Denies chest pain or shortness of breath. Denies palpitations. He denies any nausea vomiting. Denies any abdominal pain. Denies any black or bloody stools. On examination heart sounds are regular. Lungs are clear to auscultation bilaterally. Abdomen is soft, nontender with normal bowel sounds. He has no peripheral edema. Problems: 1. Elevated troponin; in the setting of underlying coronary artery disease. 2. History of irritable bowel syndrome. 3. Yfz-uaiegam-zvlnnumpe diabetes 4. Hypertension. Plan: -Cardiac enzymes are trending down. He is asymptomatic from a cardiac standpoint. -Follow-up with the cardiology service regarding management of his known coronary artery disease particularly in the setting of recurrent elevations of troponin. -Abdominal CT angiogram has been ordered by the cardiology service to rule out renal artery stenosis and further evaluate for possible ischemic bowel. Patient currently denies any abdominal pain. We will follow the results of the study. -Further disposition will be determined after reviewing CT imaging and cardiology follow-up.
[2018-01-11 08:18] LABS: ABSOLUTE BASOPHIL COUNT 0 /CUMM (0.0-0.2); ABSOLUTE EOSINOPHIL COUNT 0.4 /CUMM (0.0-0.7); ABSOLUTE GRANULOCYTE CT 5.9 /CUMM (1.4-6.5); ABSOLUTE LYMPH COUNT 1.8 /CUMM (1.2-3.4); ABSOLUTE MONOCYTE COUNT 0.8 /CUMM (0.10-0.60); BASOPHIL % 0.4 % (0.0-2.0); EOSINOPHIL % 4.6 % (0-5); GRANULOCYTE % 65.4 % (42.2-75.2); HEMATOCRIT 38.3 % (42-52); MEAN CORPUSCULAR HGB 24.8 PG (27.0-31.0); MEAN CORPUSCULAR HGB CONC 31.2 G/DL (33.0-37.0); MEAN CORPUSCULAR VOLUME 79.5 FL (80.0-94.0); MEAN PLATELET VOLUME 10.2 FL (7.4-10.4); PLATELET COUNT 216 /CUMM (130-400); RBC DISTRIBUTION WIDTH 16.5 % (11.5-14.5); RED BLOOD CELL CT 4.82 /CUMM (4.70-6.10)
--- NOTE | 2018-01-11 13:38 | Patient Discharge Instructions ---
Discharge Instructions General Discharge Information Special Instructions: - Please follow up with your earring maker Dr. Morales within 1-2 weeks of discharge. - Please follow up with your primary care physician within 1-2 weeks of discharge. Inform your primary care physician of this admission to [facility]. - Continue your current medications per discharge instructions. - Please watch for these problems: Fever, Chills, Nausea, Vomiting, Shortness of Breath, Productive Cough, Chest Pain/Discomfort, Abdominal Pain, Active Bleeding or Bloody urine/stool. Diet Continue normal diet: Yes Recommended Diet: Heart Healthy Activity Full Activity/No Limits: Yes Acute Coronary Syndrome Inclusion Criteria At DC or during hospital stay patient has or had the following: ACS DIAGNOSIS No Discharge Core Measures Meds if any: Prescribed or Continued at Discharge Meds if any: NOT Prescribed or Continued at Discharge Congestive Heart Failure Inclusion Criteria At DC or during hospital stay patient has or had the following: CHF DIAGNOSIS No Discharge Core Measures Meds if any: Prescribed or Continued at Discharge Meds if any: NOT Prescribed or Continued at Discharge Cerebrovascular accident Inclusion Criteria At DC or during hospital stay patient has or had the following: CVA/TIA Diagnosis No Discharge Core Measures Meds if any: Prescribed or Continued at Discharge Meds if any: NOT Prescribed or Continued at Discharge Venous thromboembolism Inclusion Criteria VTE Diagnosis No VTE Type NONE VTE Confirmed by (Test) NONE Discharge Core Measures - Per Current guidelines, there needs to be overlap - treatment for the first 5 days of Warfarin therapy. - If discharged on Warfarin prior to 5 days of - overlap therapy, the patient will need to be - assessed for post discharge needs including - *Post discharge parental anticoagulation - *Warfarin and/or parental anticoagulation education - *Follow up date to check INR post discharge At least 5 days overlap therapy as Inpatient No Meds if any: Prescribed or Continued at Discharge Note: Overlap Therapy is Warfarin and Anticoagulant Meds if any: NOT Prescribed or Continued at Discharge
[2018-01-11 15:11] VITALS: BP 136/72
--- NOTE | 2018-01-11 15:11 | CT SCAN REPORT ---
EXAMINATION: CT ANGIOGRAM ABDOMEN AND PELVIS CLINICAL INFORMATION: Renal artery stenosis and mesenteric artery stenosis. COMPARISON: CT abdomen and pelvis 06/11/2015. TECHNIQUE: Multiple axial images were obtained through the abdomen and pelvis following the administration of 100 mL of Optiray 320 intravenous contrast. Images were reviewed on a dedicated 3-D workstation. DLP: 744.66 mGy-cm. FINDINGS: VASCULAR FINDINGS: The distal descending thoracic aorta appears normal. The abdominal aorta demonstrates some mild atherosclerotic changes but is otherwise normal without aneurysm, dissection or stenosis. The aortic bifurcation is patent. Both common iliac arteries demonstrate mild atherosclerotic plaquing but no stenosis. Both iliac bifurcations are patent. The hypogastrics are patent and demonstrate some mild fusiform dilatation. The external iliac arteries are free of disease. The common femoral arteries demonstrate minimal posterior calcified plaque without stenosis. Femoral bifurcations are patent and proximal superficial femoral arteries and profunda femoris appear normal. The celiac and SMA are widely patent. The TONYA is widely patent. There is a single renal artery on the right which is widely patent. There are 3 left-sided renal arteries which are widely patent. NON-VASCULAR FINDINGS: The lung bases appear unremarkable. There is unchanged scarring at the left base. No pleural effusions are seen. Once again seen are multiple tiny low-attenuation masses in the liver consistent with cysts. No bile duct dilatation is seen. The gallbladder is contracted but otherwise normal in appearance. The pancreas appears normal. The spleen is unremarkable. Both adrenal glands appear normal. The kidneys appear normal. No retroperitoneal adenopathy is seen. Small edwar hepatis left lymph nodes are noted and are unchanged. No ascites is present. No bowel abnormality is detected. Once again seen is a mildly prominent prostate. No abnormal pelvic mass is seen. IMPRESSION: No evidence of renal artery stenosis or mesenteric artery stenosis.
[2018-01-11 22:12] VITALS: BP 130/70
--- NOTE | 2018-01-11 22:35 | PN- Cardiology ---
Subjective Subjective: * Patient feels back to baseline without nausea, diarrhea, shortness of breath, lightheadedness or palpitations. * cardiac enzymes are coming down. * sinus rhythm Objective Vital Signs and I&Os Vital Signs Date Time Temp Pulse Resp B/P B/P Pulse O2 O2 Flow FiO2 Mean Ox Delivery Rate 01/12 2212 98.6 67 20 130/70 94 Room Air 01/11 1511 97.9 75 20 136/72 97 01/11 0814 146/76 01/11 0814 146/76 01/11 0813 146/76 01/11 0636 98.1 53 20 142/78 95 Room Air 01/10 2233 97.9 68 20 160/90 97 Intake & Output 01/11 1600 01/11 0800 01/11 0000 01/10 1600 01/10 0800 01/10 0000 Intake Total 500 600 300 Output Total 650 720 407 5932 Balance -150 175 50 -1500 Intake, IV 100 600 300 Intake, Oral 400 0 0 Output, Urine 650 851 283 8418 Patient 185 lb 187 lb Weight Weight Bed scale Reported by Patient Measurement Method Physical Exam: General: WD/WN male in NAD; alert and oriented x 3 HEENT: NC/AT, PERRL, EOMI Neck: no JVD, no carotid bruit Heart: RRR with 2/6 systolic murmur Lungs: clear bilaterally Abdomen: soft, NT, +ve bowel sounds Extremities: no edema Assessment/Plan Assessment/Plan * This patient has ruled in for a NSTEMI that is likely related to supply demand mismatch. His RCA is the acute lesion but is not amenable to percutaneous intervention. Bypass surgery is not an ideal solution for this lesion which is not likely to be life threatening and is a chronic occlusion that appears to not be causing any chest pain. We will try and treat him medically. For now continue his pre-admission medications and add a NTG patch 0.4mg/hr for 12 hours daily. * No evidence of renal artery stenosis and blood pressure is better controlled. * The patient does not have mesenteric ischemia based on his CT angiogram. He likely had an elevated serum lactate level from dehydration. Continue telemetry? Yes
[2018-01-12 06:48] VITALS: BP 144/70
[2018-01-12 08:03] VITALS: BP 144/70
--- NOTE | 2018-01-12 08:55 | PN- Housestaff ---
Jessenia Campbell 01/12/18 0852: Subjective Follow-up For: #Elevated troponin, resolved #Weakness/Presycope 2/2 dehydration, resolved #Intermittent Diarrhea 2/2 IBS #Lactic Acidosis, resolved #NIDDM #PMH of RA, HTN, Hx of CVA Tele-Events Since Last Visit: Off tele Subjective: No overnight event. Patient had no episode of diarrhea/ab pain since admission and slept well overnight, however c/o headache around mid night and this morning. Denied chest pain/dizziness on exertion. No other specific complaint. Review of Systems Constitutional: Reports: see HPI. Objective Last 24 Hrs of Vital Signs/I&O Vital Signs Date Time Temp Pulse Resp B/P B/P Pulse O2 O2 Flow FiO2 Mean Ox Delivery Rate 01/12 0803 64 144/70 01/12 0802 64 144/70 01/12 0802 64 144/70 01/12 0800 Room Air 01/12 0648 98.8 64 20 144/70 98 Room Air 01/11 2212 98.6 67 20 130/70 94 Room Air 01/11 1511 97.9 75 20 136/72 97 Intake & Output 01/12 1600 01/12 0800 01/12 0000 Intake Total 558 Output Total 250 Balance -250 558 Intake, Oral 558 Output, Urine 250 Patient 84.964 kg Weight Weight Bed scale Measurement Method Physical Exam General Appearance: Alert, Oriented X3, Cooperative, Mild Distress HEENT: Atraumatic, PERRLA Cardiovascular: Regular Rate Lungs: Clear to Auscultation, Normal Air Movement Abdomen: Soft, No Tenderness Neurological: Normal Speech Extremities: No Edema, Normal Pulses Current Medications: Current Medications Sig/Kyaw Start time Last Medication Dose Route Stop Time Status Admin Acetaminophen 500 MG Q6P PRN 01/12 0745 AC 01/12 PO 0802 Acetaminophen 500 MG ONCE ONE 01/12 0115 DC 01/12 PO 01/12 0116 0109 Atorvastatin Calcium 80 MG 1700 01/11 1700 AC 01/11 PO 1630 Clopidogrel Bisulfate 75 MG DAILY 01/11 1000 AC 01/12 PO 0802 Folic Acid 1 MG DAILY 01/11 1000 AC 01/12 PO 0802 Heparin Sodium 5,000 UNIT Q8 01/10 2200 AC 01/12 (Porcine) SC 0546 Insulin Aspart 0 TIDAC 01/10 1700 AC 01/11 SC 1630 Lisinopril 40 MG DAILY 01/11 1000 AC 01/12 PO 0802 Methotrexate 15 MG QWED 01/17 0700 AC PO Metoprolol Succinate 25 MG DAILY 01/11 1000 AC 01/12 PO 0802 Nifedipine 60 MG DAILY 01/11 1000 AC 01/12 PO 0803 Nitroglycerin 0.4 MG DAILY 01/11 1000 AC 01/11 TOP 0815 Omeprazole 20 MG DAILY AC 01/11 0700 AC 01/12 PO 0546 Prednisone 5 MG DAILY 01/11 1000 AC 01/12 PO 0802 Sodium Chloride 1,000 ML Q13H 01/10 1700 DC 01/11 IV 0806 Sodium Chloride 2 SPRAY Q4P PRN 01/10 1645 AC YVETTE Assessment/Plan Assessment: Mr. Murphy is a 77yo male with PMH of HTN, CVA in 2005 on plavix with residual LUE/LLE weakness, DM on Glipizide/Januvia, NSTEMI failed outpatient stent placement in 11/2017 presented to ED with chief complaint of generalized weakness, sudden onset presyncope/dizziness and unsteady gait after sitting up from a recliner chair this morning. Possible etiology of his CC including dehydration/vasovagal syncope as patient had been losing a lot of fluid over the past 3 weeks from diarrhea, with elevation of lactic acid that resolved after IVF. The loss of fluid may also caused demend ischemia of cardiac function especially when patient had recent admission with NSTEMI as well failed stent placement, resulting elevation of troponin on admission. Recent echo 10/2017 showed >60% EF, and patient's BP had been under control after inceased dose of lisinopril. Etiology of diarrhea could be due to dietary change in addition to possible IBS as patient's symptoms aligned. Ischemic bowel disease could not be ruled out taking into account of patient's symptoms relieved from defecation/recent hx of HI, however less likely. Problem list #Elevated troponin, 2/2 demand ischemia #Weakness/Presycope 2/2 dehydration #Intermittent Diarrhea 2/2 IBS #Mild Leukocytosis, resolved #Lactic Acidosis, resolved #NIDDM #PMH of RA, HTN, Hx of CVA Plan - Novolog SS + AccuChek - Trop peaked at 0.67 and now 0.45 on latest lab overnight. EKG negative for acute changes. - Appreciated cardio consult. CTA ab/pelvis had ruled out ischemic bowel disease. - Patient's currently pain-free at abdomen, will continue monitoring for symptoms. - Patient's BL headache was likely from use of NTG patch, with no signs of hypertension/vital instablity. Would DC use of NTG patch, give tylenol, and followup. - Pending discharge today and follow up with Dr. Morales outpatient. DVT prophylaxis Heparin + ALPS Diabetic Full Code Problem List: 1. Blockage of coronary artery of heart 2. NSTEMI (non-ST elevated myocardial infarction) Pain Ratin Pain Location: headache Pain Goal: Pain 4 or less Pain Plan: see AP Tomorrow's Labs & Rationales: HOSEA Nichols MD,Keegan 01/12/18 1203: Attending MD Review Statement Attending Statement Attending MD Statement: examined this patient, discuss w/resident/PA/ENVIRONMENTAL SERVICES ASSISTANT, agreed w/resident/PA/ENVIRONMENTAL SERVICES ASSISTANT, reviewed EMR data (avail), discussed with nursing, discussed with case mgmt, amended to note Attending Assessment/Plan: Patient seen and examined. Resting comfortably not in any acute distress. No issues overnight on telemetry monitoring. No new complaints this morning. Denies chest pain or shortness of breath. Denies palpitations. His blood pressure remains adequately controlled today. CT abdomen ordered by the cardiology service shows no evidence of renal artery stenosis or mesenteric ischemia. Patient's RCA lesion is not amenable to percutaneous intervention. Per the cardiology service bypass surgery is not an ideal solution for this lesion. He will be managed medically for now. This has been discussed with the patient. 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
--- NOTE | 2018-01-12 10:45 | Discharge Summary ---
See Addendum Visit Information Visit Dates Admission Date: 01/10/18 Discharge Date: 01/12/2018 Hospital Course Course Attending Physician: Keegan Nichols MD Primary Care Physician: Hu Michelle DO Hospital Course: Mr. Murphy is a 77yo male with PMH of HTN, CVA in 2006 on plavix with residual LUE/LLE weakness, DM on Glipizide/Januvia, NSTEMI failed outpatient stent placement in 11/2017 presented to ED with chief complaint of generalized weakness, sudden onset presyncope/dizziness and unsteady gait after sitting up from a recliner chair this morning. Possible etiology of his CC including dehydration/vasovagal syncope as patient had been losing a lot of fluid over the past 3 weeks from diarrhea, with elevation of lactic acid that resolved after IVF. The loss of fluid may also caused demend ischemia of cardiac function especially when patient had recent admission with NSTEMI as well failed stent placement, resulting elevation of troponin on admission. Recent echo 10/2017 showed >60% EF, and patient's BP had been under control after inceased dose of lisinopril. Etiology of diarrhea could be due to dietary change in addition to possible IBS as patient's symptoms aligned. Ischemic bowel disease could not be ruled out taking into account of patient's symptoms relieved from defecation/recent hx of MA, however less likely. On admission, Vitals: VSS, BP 140s/60s-70s -CBC: Mild leukocytosis WBC 12.4, H/H 12.7/40.3, PLT 256, -BMP: WNL except Lactic acid 3.1 -> 1.6 after IVF, -Misc: Troponin 0.01 -> 0.27 -CXR: no acute process -EKG: Normal sinus rhythm with borderline left axis shift with nonspecific ST-T abnormalities. -Interventions in ER: IVF NS Bolus, Metoprolol. Problem list #Elevated troponin, 2/2 demand ischemia Upon admission, patient was trended for EKG/troponin and peaked at 0.67 in 24hours and decreased. No acute EKG change was found. The elevated troponin was likely due to demand ischemia from patient's dehydration w/ presyncope (see below). Cardiology consult recommended medical therapy only at this time, and started Nitroglycerate patch 0.4mg/hr for 12 hours daily. #Weakness/Presycope 2/2 dehydration Patient's weakness/presyncope prior admission without loss of consciousness was likely due to dehydration from diarrhea in previous weeks, along with signs of lactic acidosis resolved with IV normal saline bolus. Patient had no more episodes of weakness/presyncope during hospital stay. #Intermittent Diarrhea 2/2 IBS Patient stated that he got interminttent diarrhea/constipation for last 3 weeks and had similar complaints in previous winter seasons. CTA of Abdomen/Pelvis had ruled out ischemic bowel disease and renal artery stenosis. Patient had no more episodes of diarrhea over hospital stay. Patient was advised to follow up outpatient. #Reactive Leukocytosis, resolved Likely due to dehydration/demand ischemia. Resolved in 24hours without signs of infection, #Lactic Acidosis 2/2 dehydration, resolved Patient was treated with IV fluid bolus and resolved to 1.6. #NIDDM Patient was given novolog SS & AccuChecks #PMH of RA, HTN, Hx of CVA Patient was continued on all other home medications. DVT prophylaxis Heparin + ALPS Diabetic Full Code Allergies: Coded Allergies: aspirin (SOB 11/02/16) Pertinent Lab Results: SERVICE DATE: 01/10/18- EXAM TYPE: CAT - CT ABD & PELVIS ANGIOGRAM IMPRESSION: No evidence of renal artery stenosis or mesenteric artery stenosis. SERVICE DATE: 01/10/18 EXAM TYPE: RAD - XRY-CHEST XRAY, TWO VIEWS IMPRESSION: No acute pulmonary findings. Laboratory Tests 01/11 01/10 01/10 0621 2320 1728 Chemistry Sodium (137 - 145 mmol/L) 141 Potassium (3.5 - 5.1 mmol/L) 4.1 Chloride (98 - 107 mmol/L) 107 Carbon Dioxide (22 - 30 mmol/L) 24 Anion Gap (5 - 16) 10 BUN (9 - 20 mg/dL) 14 Creatinine (0.7 - 1.2 mg/dL) 0.9 Estimated GFR (>60 ml/min) > 60 BUN/Creatinine Ratio (7 - 25 %) 15.6 Troponin I (<0.11 ng/ml) 0.49 *H 0.67 *H Hematology CBC w Diff NO MAN DIFF REQ WBC (4.8 - 10.8 /CUMM) 9.0 RBC (4.70 - 6.10 /CUMM) 4.82 Hgb (14.0 - 18.0 G/DL) 12.0 L Hct (42 - 52 %) 38.3 L MCV (80.0 - 94.0 FL) 79.5 L MCH (27.0 - 31.0 PG) 24.8 L MCHC (33.0 - 37.0 G/DL) 31.2 L RDW (11.5 - 14.5 %) 16.5 H Plt Count (130 - 400 /CUMM) 216 MPV (7.4 - 10.4 FL) 10.2 Gran % (42.2 - 75.2 %) 65.4 Lymphocytes % (20.5 - 51.1 %) 20.5 Monocytes % (1.7 - 9.3 %) 9.1 Eosinophils % (0 - 5 %) 4.6 Basophils % (0.0 - 2.0 %) 0.4 Absolute Granulocytes (1.4 - 6.5 /CUMM) 5.9 Absolute Lymphocytes (1.2 - 3.4 /CUMM) 1.8 Absolute Monocytes (0.10 - 0.60 /CUMM) 0.8 H Absolute Eosinophils (0.0 - 0.7 /CUMM) 0.4 Absolute Basophils (0.0 - 0.2 /CUMM) 0 01/10 01/10 01/10 01/10 01/10 1728 1642 1642 1122 1122 Chemistry Lactic Acid (0.7 - 2.1 mmol/L) 1.6 Troponin I (<0.11 ng/ml) 0.27 *H Renin Pending Aldosterone Pending Urines Urine Total Volume Cancelled U Vanillylmandelic Acd Cancelled Urine Total Volume Cancelled U Metanephrines 24 Hr Cancelled U Normetanephrine 24h Cancelled U Tot Metanephrine 24h Cancelled 01/10 0812 Chemistry Sodium (137 - 145 mmol/L) 140 Potassium (3.5 - 5.1 mmol/L) 3.5 Chloride (98 - 107 mmol/L) 104 Carbon Dioxide (22 - 30 mmol/L) 24 Anion Gap (5 - 16) 12 BUN (9 - 20 mg/dL) 15 Creatinine (0.7 - 1.2 mg/dL) 1.0 Estimated GFR (>60 ml/min) > 60 BUN/Creatinine Ratio (7 - 25 %) 15.0 Glucose (65 - 99 mg/dL) 218 H Lactic Acid (0.7 - 2.1 mmol/L) 3.1 H Calcium (8.4 - 10.2 mg/dL) 9.6 Total Bilirubin (0.2 - 1.3 mg/dL) 0.4 AST (17 - 59 U/L) 35 ALT (21 - 72 U/L) 40 Alkaline Phosphatase (< 127 U/L) 60 Troponin I (<0.11 ng/ml) < 0.01 Total Protein (6.3 - 8.2 g/dL) 7.1 Albumin (3.5 - 5.0 g/dL) 4.0 Globulin (1.9 - 4.2 gm/dL) 3.1 Albumin/Globulin Ratio (1.1 - 2.2 %) 1.3 Hematology CBC w Diff NO MAN DIFF REQ WBC (4.8 - 10.8 /CUMM) 12.4 H RBC (4.70 - 6.10 /CUMM) 5.11 Hgb (14.0 - 18.0 G/DL) 12.7 L Hct (42 - 52 %) 40.3 L MCV (80.0 - 94.0 FL) 79.0 L MCH (27.0 - 31.0 PG) 25.0 L MCHC (33.0 - 37.0 G/DL) 31.6 L RDW (11.5 - 14.5 %) 16.5 H Plt Count (130 - 400 /CUMM) 256 MPV (7.4 - 10.4 FL) 9.8 Gran % (42.2 - 75.2 %) 64.9 Lymphocytes % (20.5 - 51.1 %) 24.0 Monocytes % (1.7 - 9.3 %) 7.6 Eosinophils % (0 - 5 %) 3.0 Basophils % (0.0 - 2.0 %) 0.5 Absolute Granulocytes (1.4 - 6.5 /CUMM) 8.0 H Absolute Lymphocytes (1.2 - 3.4 /CUMM) 3.0 Absolute Monocytes (0.10 - 0.60 /CUMM) 0.9 H Absolute Eosinophils (0.0 - 0.7 /CUMM) 0.4 Absolute Basophils (0.0 - 0.2 /CUMM) 0.1 Disposition Summary Disposition Principal Diagnosis: #Elevated troponin, 2/2 demand ischemia #Weakness/Presycope 2/2 dehydration #Intermittent Diarrhea 2/2 IBS #Mild Leukocytosis, resolved #Lactic Acidosis, resolved #NIDDM #PMH of RA, HTN, Hx of CVA Additional Diagnosis: As above Discharge Disposition: home or self care Discharge Instructions General Discharge Information Code Status: Full Code Patient's Diet: Heart Healthy Patient's Activity: As tolerated Follow-Up Instructions/Appts: - Please follow up with your senior supplier quality engineer Dr. Morales within 1-2 weeks of discharge. - Please follow up with your primary care physician within 1-2 weeks of discharge. Inform your primary care physician of this admission to [facility]. - Continue your current medications per discharge instructions. - Please watch for these problems: Fever, Chills, Nausea, Vomiting, Shortness of Breath, Productive Cough, Chest Pain/Discomfort, Abdominal Pain, Active Bleeding or Bloody urine/stool. Medications at Discharge Discharge Medications: Stop taking the following medications: Pantoprazole Sodium (Protonix) 40 MG TABLET. ORAL DAILY Continue taking these medications: Metoprolol Succinate (Metoprolol Succinate) 25 MG TAB 1 Tablet ORAL DAILY Qty = 30 Comments: Last Taken: 01/12/18 Time: 8AM Methotrexate (Methotrexate) 2.5 MG TABLET 6 Tablet ORAL EVERY MONDAY Qty = 30 Comments: NOT GIVEN IN HOSPITAL Clopidogrel Bisulfate (Clopidogrel) 75 MG TABLET 1 Tablet ORAL DAILY Qty = 30 Comments: Last Taken: 01/12/18 Time: 8AM Prednisone (Prednisone) 5 MG TABLET 1 Tablet ORAL DAILY Qty = 90 Comments: Last Taken: 01/12/18 Time: 8AM Glipizide (Glipizide) 5 MG TABLET 1 Tablet ORAL DAILY Qty = 30 Comments: NOT GIVEN IN HOSPITAL Mometasone Furoate (Nasonex) 50 MCG SPRAY.PUMP 2 [place] Both sides of nose DAILY as needed for congestion Qty = 1 Comments: NOT GIVEN IN HOSPITAL Folic Acid (Folic Acid) 1 MG TABLET 1 Tablet ORAL DAILY Qty = 60 Comments: Last Taken: 01/12/18 Time: 8AM Omeprazole Magnesium (Prilosec Otc) 20 MG TABLET. 1 Tablet ORAL DAILY Qty = 30 Comments: Last Taken: 01/12/18 Time: 6AM Magnesium Citrate (Citrate Of Magnesia) 300 ML SOLUTION 296 Milliliters ORAL GIVE ONCE as needed for CONSTIPATION Qty = 296 Nitroglycerin (Nitrostat) 0.4 MG TAB.SUBL 1 Tablet SUBLINGUAL As Directed as needed for chest pain Qty = 25 Instructions: 1st sign of attack;may repeat every 5 mins until relief; if pain still after 3 tabs in 15 minS, medical attN Comments: NOT GIVEN AT THE HOSPITAL Atorvastatin Calcium (Atorvastatin Calcium) 80 MG TABLET 1 Tablet ORAL DAILY Qty = 30 Instructions: . Comments: Last Taken: 01/11/18 Time: 5PM Lisinopril (Zestril) 40 MG TABLET 1 Tablet ORAL DAILY Qty = 30 Instructions: . Comments: Last Taken: 01/12/18 Time: 8AM Sitagliptin Phosphate (Januvia) 50 MG TABLET 50 Milligram ORAL DAILY Comments: NOT GIVEN IN HOSPITAL Nifedipine (Nifedipine ER) 60 MG TAB.ER.24 1 Tablet ORAL DAILY Comments: Last Taken: 01/12/18 Time: 8AM Copies To: Hu Michelle DO Attending Review Statement Documenting Attending: Keegan Nichols MD Other Findings: Patient is medically stable to be discharged home today.
== END 2018-01-12 11:40 | DRG 281 ==
LOC: ERH 08:02 → 1NO 12:55 → ERHI 12:55 → ENRESERV 14:04 → ENTRNSPT 15:42 → EDTRNSPTSTS 15:49 → 1NO 16:01 → CMPTRNSPT 16:07 → ENPENDDIS 01-12 10:17 → ENTRNSPT 01-12 11:10 → EDTRNSPTSTS 01-12 11:13 → EDTRNSPT 01-12 11:13 → CMPTRNSPT 01-12 11:27 → 1NO 01-12 11:40
PROVIDERS: Physician Assistant
DX: I21.A1 Myocardial infarction type 2 (principal); I69.354 Hemiplegia and hemiparesis following cerebral infarction affecting left non-dominant side; E11.8 Type 2 diabetes mellitus with unspecified complications; E87.2 Acidosis; D64.9 Anemia, unspecified; E86.0 Dehydration; I25.10 Atherosclerotic heart disease of native coronary artery without angina pectoris; I10 Essential (primary) hypertension; I95.1 Orthostatic hypotension; Z79.84 Long term (current) use of oral hypoglycemic drugs; M06.9 Rheumatoid arthritis, unspecified; Z88.6 Allergy status to analgesic agent; Z87.891 Personal history of nicotine dependence; R19.7 Diarrhea, unspecified; K29.80 Duodenitis without bleeding; K29.70 Gastritis, unspecified, without bleeding; I25.2 Old myocardial infarction; E78.5 Hyperlipidemia, unspecified; R79.89 Other specified abnormal findings of blood chemistry
CPT/HCPCS: 1NSP; 36592; 71046; 74174; 82436; 93005; 93010; 99291; J1644; J3490; J7512

== ENCOUNTER 2018-03-07 22:46 | Inpatient (IN) | payer OTHER, MEDICARE ==
[~2018-03-07] VITALS: Ht 175.3 cm; Wt 88.0 kg
[~2018-03-07 22:46] MED LIST changes: +NIFEDIPINE ER60 M2 PO; +PROTONIX40 M3 PO
--- NOTE | 2018-03-07 23:25 | ED GENERAL ADULT ---
History of Present Illness General Chief Complaint: General Adult Stated Complaint: PT THINKS HIS BP IS HIGH OR SUGAR MIGHT BE HIGH Source: patient, old records Exam Limitations: no limitations Vital Signs & Intake/Output Vital Signs & Intake/Output Vital Signs Date Time Temp Pulse Resp B/P B/P Pulse O2 O2 Flow FiO2 Mean Ox Delivery Rate 03/077 144/58 03/07 2254 98.0 110 95 184/81 ED Intake and Output 03/08 0000 03/07 1200 Intake Total Output Total Balance Patient 187 lb Weight Weight Reported by Patient Measurement Method Allergies Coded Allergies: aspirin (SOB 11/02/16) Reconcile Medications Atorvastatin Calcium 80 MG TABLET 1 TAB PO DAILY Cholesterol . Clopidogrel Bisulfate (Clopidogrel) 75 MG TABLET 1 TAB PO DAILY BLOOD THINNER (Reported) Folic Acid 1 MG TABLET 1 TAB PO DAILY SUPPLEMENT (Reported) Glipizide 5 MG TABLET 1 TAB PO DAILY DIABETES (Reported) Lisinopril (Zestril) 40 MG TABLET 1 TAB PO DAILY Blood pressure . Magnesium Citrate (Citrate Of Magnesia) 300 ML SOLUTION 296 ML PO ONCE PRN CONSTIPATION Methotrexate 2.5 MG TABLET 6 TAB PO QWED RA (Reported) Metoprolol Succinate 25 MG TAB 1 TAB PO DAILY HEART (Reported) Mometasone Furoate (Nasonex) 50 MCG SPRAY.PUMP 2 SPRAY [place]B DAILY PRN congestion Nifedipine (Nifedipine ER) 60 MG TAB.ER.24 1 TAB PO DAILY htn (Reported) Nitroglycerin (Nitrostat) 0.4 MG TAB.SUBL 1 TAB SL AD PRN chest pain 1st sign of attack;may repeat every 5 mins until relief; if pain still after 3 tabs in 15 minS, medical attN Omeprazole Magnesium (Prilosec Otc) 20 MG TABLET.DR 1 TAB PO DAILY GASTRITIS Prednisone 5 MG TABLET 1 TAB PO DAILY RA (Reported) Sitagliptin Phosphate (Januvia) 50 MG TABLET 50 MG PO DAILY DIABETES ( Reported) Triage Note: PT PRESENTS TO THE ER C/O "I HAVE HIGH BLOOD PRESSURE OR HIGH BLOOD SUGAR" PT STATES THAT HE FEELS WEAK AND DIZZY AND THAT HE ATE SALTY FOODS AND THIS IS WHAT SOMETIMES HAPPENS WHEN HE EATS THOSE FOODS. PER PT I TRY TO EAT GOOD. PT STATES THAT HE TOOK HIS BP MEDICATIONS THIS MORNING, Triage Nurses Notes Reviewed? yes Onset: Last week Duration: better Timing: recent history Injury Environment: home Severity: mild, moderate Modifying Factors: Improves With: rest. HPI: Several days prior to admission patient had flare up of his arthritis with neck pain and headache that is now resolved. 1 day prior to admission patient reports eating chicken salad then became weak and dizzy. He denies fever chills nausea vomiting diarrhea abdominal pain chest pain shortness breath dysuria rash bleeding. Past History Travel History Traveled to [place] past 21 day No Medical History Any Pertinent Medical History? 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 No Review of Systems Review of Systems Constitutional: Reports: see HPI, weakness. EENTM: Reports: no symptoms. Respiratory: Reports: no symptoms. Cardiovascular: Reports: no symptoms. GI: Reports: no symptoms. Genitourinary: Reports: no symptoms. Musculoskeletal: Reports: see HPI, neck pain. Skin: Reports: no symptoms. Neurological/Psychological: Reports: see HPI. Hematologic/Endocrine: Reports: no symptoms. Immunologic/Allergic: Reports: no symptoms. All Other Systems: Reviewed and Negative Physical Exam Physical Exam General Appearance: well developed/nourished, alert, awake, anxious, mild distress Head: atraumatic, normal appearance Eyes: Bilateral: normal appearance, PERRL, EOMI. Ears, Nose, Throat: normal pharynx, normal ENT inspection, hearing grossly normal Neck: normal inspection, supple, full range of motion, no midline tenderness Respiratory: normal breath sounds, chest non-tender, no respiratory distress, quiet respiration, lungs clear Cardiovascular: regular rate/rhythm, normal peripheral pulses, norml femoral pulses equa Peripheral Pulses: 4+ carotid (R), 4+ carotid (L) Gastrointestinal: normal bowel sounds, soft, non-tender, no organomegaly Back: normal inspection, normal range of motion, no vertebral tenderness Extremities: normal inspection, normal capillary refill, normal range of motion, no edema Neurologic/Psych: no motor/sensory deficits, awake, alert, oriented x 3, normal gait, normal mood/affect, 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 Skin: intact, normal color, warm/dry Lymphatic: no anterior cervical remy Core Measures ACS in differential dx? Yes No ASA d/t Allergy CVA/TIA Diagnosis: No Sepsis Present: No Sepsis Focused Exam Completed? No Progress Differential Diagnoses I considered the following diagnoses in my evaluation of the patient: Electrolyte abnormality myocardiac ischemia pneumonia Plan of Care: Orders Procedure Date/time Status Consistent Carbohydrate 2 03/08 B Active Patient Data 03/08 164 Active OXYGEN SETUP (GEN) 03/08 134 Active Saline Lock 03/08 134 Active Admit to inpatient 03/08 134 Active Vital Signs 03/08 134 Active Activity/Ambulation 03/08 134 Active Code Status 03/08 134 Active TSH REFLEX 03/07 2305 Complete TROPONIN LEVEL 03/07 2305 Complete MAGNESIUM 03/07 2305 Complete COMPREHENSIVE METABOLIC PANEL 03/07 2305 Complete CBC WITHOUT DIFFERENTIAL 03/07 2305 Complete ACETONE 03/07 2305 Complete EKG 03/07 2258 Active FingerStick- Glucose 03/07 2254 Active Laboratory Tests 03/07/18 2340: Anion Gap 12, Estimated GFR > 60, BUN/Creatinine Ratio 17.8, Glucose 177 H, Calcium 9.0, Magnesium 2.0, Total Bilirubin 0.3, AST 37, ALT 36, Alkaline Phosphatase 54, Troponin I 0.04, Total Protein 6.9, Albumin 3.7, Globulin 3.2, Albumin/Globulin Ratio 1.2, TSH &T3 &Free T4 Intrp 2.160, CBC w Diff NO MAN DIFF REQ, RBC 4.89, MCV 77.7 L, MCH 24.5 L, MCHC 31.6 L, RDW 16.1 H, MPV 9.2, Gran % 79.8 H, Lymphocytes % 8.7 L, Monocytes % 7.8, Eosinophils % 3.6, Basophils % 0.1, Absolute Granulocytes 6.3, Absolute Lymphocytes 0.7 L, Absolute Monocytes 0.6, Absolute Eosinophils 0.3, Absolute Basophils 0, Acetone Level NEGATIVE Diagnostic Imaging: Viewed by Me: Radiology Read. Discussed w/RAD: Radiology Read. CXR Impression: Central vascular prominence without overt edema. No consolidation. Initial ED EKG: normal axis, normal intervals, normal p-waves, normal QRS complex, normal sinus rhythm, ST depression (1,L,V3-6), PVCs Prior EKG: changed Rhythm Strip: normal sinus rhythm, PVC Departure Departure Disposition: STILL A PATIENT Condition: Stable Clinical Impression Primary Impression: Myocardial ischemia Secondary Impressions: PVCs (premature ventricular contractions) Referrals: Hu Michelle DO (PCP/Family) Departure Forms: Customer Survey General Discharge Information Admission Note Spoke With: Kiarra Mclain MD Documentation of Exam: Documentation of any treatments & extenuating circumstances including Concerns Regarding Discharge (functional status, medication knowledge or non-compliance, living conditions, etc.) that warrant an admission rather than observation: Cardiac monitoring serial lab exam cardiology evaluation medication adjustment continuing care discharge planning. Critical Care Note Critical Care Note Critical Care Time: 30-74 min (35)
[2018-03-07 23:50] LABS: ABSOLUTE BASOPHIL COUNT 0 /CUMM (0.0-0.2); ABSOLUTE EOSINOPHIL COUNT 0.3 /CUMM (0.0-0.7); ABSOLUTE GRANULOCYTE CT 6.3 /CUMM (1.4-6.5); ABSOLUTE LYMPH COUNT 0.7 /CUMM (1.2-3.4); ABSOLUTE MONOCYTE COUNT 0.6 /CUMM (0.10-0.60); BASOPHIL % 0.1 % (0.0-2.0); EOSINOPHIL % 3.6 % (0-5); GRANULOCYTE % 79.8 % (42.2-75.2); MEAN CORPUSCULAR HGB 24.5 PG (27.0-31.0); MEAN CORPUSCULAR HGB CONC 31.6 G/DL (33.0-37.0); MEAN CORPUSCULAR VOLUME 77.7 FL (80.0-94.0); MEAN PLATELET VOLUME 9.2 FL (7.4-10.4); PLATELET COUNT 217 /CUMM (130-400); RBC DISTRIBUTION WIDTH 16.1 % (11.5-14.5); RED BLOOD CELL CT 4.89 /CUMM (4.70-6.10); WHITE BLOOD CELL COUNT 7.9 /CUMM (4.8-10.8)
--- NOTE | 2018-03-08 01:20 | RADIOLOGY REPORT ---
EXAMINATION: XR PORTABLE CHEST CLINICAL INFORMATION: Weakness. Cough. COMPARISON: 01/10/2018 TECHNIQUE: Portable frontal view of the chest was obtained. FINDINGS: Lung volumes are low. Central vascular prominence without overt edema. No dense consolidation or pleural effusion. No pneumothorax. The cardiomediastinal silhouette remains enlarged with a calcified aorta. IMPRESSION: Central vascular prominence without overt edema. No consolidation.
--- NOTE | 2018-03-08 01:59 | History & Physical ---
Edward REID,Radha 03/08/18 0159: General Information and HPI MD Statement: I have seen and personally examined TIP BROOKS and documented this H&P. The patient is a 77 year old M who presented with a patient stated chief complaint of [HTN]. 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 Patient said that he ate chicken salad this morning after which he felt that his blood pressure was high, he measured his blood pressure at home and was not able to get any reading which he think is because his blood pressure was too high. Patient has history of CVA on 2005 with residual left-sided weakness, however he noticed increasing weakness which is started tonight at around 10 PM and resolved by the time he was here in the hospital. Patient also complains of stiff neck for 1 week associated with headache. Patient denies any lightheadedness, dizziness, chest pain, palpitation, nausea, vomiting, diarrhea or fever or chills. of note: on 01/[address] Morales and was sent for a stent placement at [facility] for his recent diagnose of 99% blockage of coronary vessel, however the stent placement was unsuccessful. Patient follow-up with Dr. Morales his last visit was 3 weeks ago, he denies any recent changes to his medication. Patient measured his blood sugar routinely at home and he reports that it was ranging from [id number], his last A1c was checked around 23 months ago and was 7.1 vitals on admisssion: Blood pressure 1 8/81, pulse 110, temperature 98, respiratory rate 15 Labs on admission: Hemoglobin 12, MCV 77.7, MCV 77.7, hemoglobin 12, normal PEEP except for glucose 177, troponin <0.04 CXR: Central vascular prominence without overt edema. No consolidation. Allergies/Medications Allergies: Coded Allergies: aspirin (SOB 11/02/16) Home Med list Atorvastatin Calcium 80 MG TABLET 1 TAB PO DAILY Cholesterol . Clopidogrel Bisulfate (Clopidogrel) 75 MG TABLET 1 TAB PO DAILY BLOOD THINNER (Reported) Folic Acid 1 MG TABLET 1 TAB PO DAILY SUPPLEMENT (Reported) Glipizide 5 MG TABLET 1 TAB PO DAILY DIABETES (Reported) Lisinopril (Zestril) 40 MG TABLET 1 TAB PO DAILY Blood pressure . Magnesium Citrate (Citrate Of Magnesia) 300 ML SOLUTION 296 ML PO ONCE PRN CONSTIPATION Methotrexate 2.5 MG TABLET 6 TAB PO QWED RA (Reported) Metoprolol Succinate 25 MG TAB 1 TAB PO DAILY HEART (Reported) Mometasone Furoate (Nasonex) 50 MCG SPRAY.PUMP 2 SPRAY NASB DAILY PRN congestion Nifedipine (Nifedipine ER) 60 MG TAB.ER.24 1 TAB PO DAILY htn (Reported) Nitroglycerin (Nitrostat) 0.4 MG TAB.SUBL 1 TAB SL AD PRN chest pain 1st sign of attack;may repeat every 5 mins until relief; if pain still after 3 tabs in 15 minS, medical attN Omeprazole Magnesium (Prilosec Otc) 20 MG TABLET.DR 1 TAB PO DAILY GASTRITIS Prednisone 5 MG TABLET 1 TAB PO DAILY RA (Reported) Sitagliptin Phosphate (Januvia) 50 MG TABLET 50 MG PO DAILY DIABETES ( Reported) Past History Travel History Traveled to [place] past 21 day No Medical History Neurological: STROKE 2006 LEFT LE/UE WEAKNESS EENT: NONE Cardiovascular: hypertension Respiratory: NONE Gastrointestinal: Mild gastritis and duodenitis, Nonerosive reflux disease Hepatic: NONE Renal: NONE Musculoskeletal: NONE Psychiatric: NONE Endocrine: diabetes Blood Disorders: anemia Cancer(s): NONE WATCH ADJUSTER/Reproductive: NONE History of MRSA: No History of VRE: No History of CDIFF: No Surgical History Surgical History: ENDOSCOPY Past Family/Social History Family History Relations & Conditions if any Relation not specified for: *No pertinent family history Psychosocial History Services at Home: None Primary Language: Lithuanian Smoking Status: Former Smoker ETOH Use: denies use Illicit Drug Use: denies illicit drug use Living Will? no Functional Ability ADLs Independent: dressing, eating, toileting, bathing. Ambulation: independent IADLs Independent: shopping, housework, finances, food prep, telephone, transportation , medication admin. Review of Systems Review of Systems Constitutional: Denies: no symptoms. Cardiovascular: Denies: chest pain, edema, orthopena, palpitations, peripheral edema. Respiratory: Denies: cough, hemoptysis, orthopnea, short of breath, sputum production. GI: Denies: abdominal pain, bloating, constipation, diarrhea, melena, nausea, vomiting. Genitourinary: Denies: no symptoms. Musculoskeletal: Reports: neck pain. Neurological/Psychological: Reports: headache, weakness. Exam & Diagnostic Data Last 24 Hrs of Vital Signs/I&O Vital Signs Date Time Temp Pulse Resp B/P B/P Pulse O2 O2 Flow FiO2 Mean Ox Delivery Rate 03/077 144/58 03/07 2254 98.0 110 95 184/81 Intake & Output 03/08 0800 03/08 0000 03/07 1600 Intake Total Output Total Balance Patient 187 lb Weight Weight Reported by Patient Measurement Method Physical Exam General Appearance Alert, Oriented X3, Cooperative, No Acute Distress HEENT Atraumatic, PERRLA, EOMI, Mucous Membr. moist/pink Neck Supple, No JVD Cardiovascular Normal S1, Normal S2, No Murmurs Lungs Clear to Auscultation Abdomen Normal Bowel Sounds, Soft, No Tenderness Neurological Normal Speech, Strength at 5/5 X4 Ext, Normal Tone, Sensation Intact, increased rigidity noticed in the left LE Extremities No Clubbing, No Cyanosis, No Edema Last 24 Hrs of Labs/Marco: Laboratory Tests 03/07/18 2340: Anion Gap 12, Estimated GFR > 60, BUN/Creatinine Ratio 17.8, Glucose 177 H, Calcium 9.0, Magnesium 2.0, Total Bilirubin 0.3, AST 37, ALT 36, Alkaline Phosphatase 54, Troponin I 0.04, Total Protein 6.9, Albumin 3.7, Globulin 3.2, Albumin/Globulin Ratio 1.2, TSH &T3 &Free T4 Intrp 2.160, CBC w Diff NO MAN DIFF REQ, RBC 4.89, MCV 77.7 L, MCH 24.5 L, MCHC 31.6 L, RDW 16.1 H, MPV 9.2, Gran % 79.8 H, Lymphocytes % 8.7 L, Monocytes % 7.8, Eosinophils % 3.6, Basophils % 0.1, Absolute Granulocytes 6.3, Absolute Lymphocytes 0.7 L, Absolute Monocytes 0.6, Absolute Eosinophils 0.3, Absolute Basophils 0, Acetone Level NEGATIVE Diagnostic Data EKG Results Heart rate 101, QTC 446, PVCs, STT wave depression in aVL, V2, V3, V4, V5 which is changed from the previous EKG CXR Results Central vascular prominence without overt edema. No consolidation. 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 Patient blood pressure on admission was initially elevated, at 12 54/81 which subsequently decreased to 144/58, EKG showed ST depression in aVL, V2, V3, V4, V5. However the patient denies any chest pain in the troponin was negative. problem list: HTN EKG changes #NIDDM #PMH of RA, HTN, Hx of CVA Plan: Admit to telemetry Continuous telemetry monitoring Vitals every shift Intake and output Serial troponin EKG Please confirm her medications in a.m. Cardiology consult appreciated Continue home meds once confirmed Will hold oral antidiabetic Insulin sliding scale Fingerstick glucose Full code Consistent carbohydrate diet DVT prophylaxis with subcutaneous heparin As Ranked By This Provider Problem List: 1. PVCs (premature ventricular contractions) 2. Weakness 3. Hypertension Core Measures/Misc (07/16) Acute Coronary Syndrome ACS Diagnosis: No Last Known EF % 70 Congestive Heart Failure Congestive Heart Failure Diagnosis No Cerebrovascular Accident CVA/TIA Diagnosis: No VTE (View Protocol) VTE Risk Factors Age>40 No Mechanical VTE Prophylaxis d/t N/A MechProphylax Ordered No VTE Pharm Prophylaxis d/t NA PharmProphylax ordered Sepsis (View protocol) Sepsis Present: No Golden Antoine MD 03/08/18 0206: Resident Review Statement Resident Statement: examined this patient, discussed with architect intern, agreed with architect intern, reviewed EMR data (avail), discussed with nursing, discussed with case mgmt, reviewed images, amended to note Other Findings: 77 yo M with pmh of HTN, 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 Other than this, he denies chest pain, chest pressure/tightness, palpitation, dyspnea, nausea, vomiting, sweating, fever/chills, dizziness, lightheadedness, leg swelling, abdominal pain, incontinence, slurring of speech, blurring of vision, tingling or numbness in any part of the body. Vitals, PE and imaging as noted above. pertinent: Sinus rhythm with PVCs, ST- depression noted in aVL, V2-V5, which is a change from last time. CXR- congestion. Troponin- negative He is currently admitted in the telemetry unit for the management of following issues: #EKG changes, new with PVCs Patient's EKG has new ST depressions, not noted in his last visit. He is currently asymptomatic, troponin is negative, but given his extensive cardiac history, warrants an admission to follow for his symptoms and troponin/EKG. * Monitor vitals regularly * Watch for any arrhythmia * Replete electrolytes to K 4, Mg 2 * Trop/EKG every 6 hours * Cardiology consultation * Would be cautious to give nitroglycerin, as he had right-sided vascular compromise per EMR #Elevated blood pressure Patient's BP has been high, but would manage it with his home meds first. He had right coronary issues in the recent past, making him pre-load dependant, so would not drastically reduce his BP. #DM * CC1 diet * Insulin sliding scale for now * Will continue home meds on discharge #Rest of his home meds were reconciled and continued. #Housekeeping: Diet: CC1 DVT ppx: SQ Lovenox Code status: Full code Kiarra Mclain 03/08/18 0530: Attending MD Review Statement Attending Statement Attending MD Statement: examined this patient, discuss w/resident/PA/TRAILHEAD CONSTRUCTION WORKER, agreed w/resident/PA/TRAILHEAD CONSTRUCTION WORKER, reviewed EMR data (avail), reviewed images, amended to note Attending Assessment/Plan: CC: High blood pressure PMH: HTN, CVA with residual left-sided weakness, DM, CAD S/P coronary cath in November 2017 without successful stent placement, personable history of A. fib, rheumatoid arthritis Patient came to ER for elevated blood pressure. He stated that he ate dinner and was checking his blood pressure, usually his machine reads it well but whenever he eats high it starts beeping so this evening his blood pressure machine was beeping and he thought his blood pressure 1 high but not sure exactly how much. So he decided to come to ER. He had mild neck pain, had transient left lower leg weakness which improved during this episode otherwise complete ROS unremarkable. Denies chest pain, chest tightness, shoulder pain, jaw pain, diaphoresis, palpitations, and lightheadedness, nausea or vomiting. Last time he saw Dr. Morales was 2 weeks back. Vitals: Temperature 98.0, pulse 110, respiration 15, blood pressure 184/81, saturating 95% on room air. On exam: A O 3, cooperative, no acute distress, neck supple, JVD normal, no lymphadenopathy, mucosa moist, no focal neurological deficit except residual left upper extremity and lower extremity weakness secondary to previous stroke, no dependent edema, no obvious skin rashes or inflammation CVS: S1-S2, RRR. RS: Clear to auscultate bilaterally. Abdomen: Soft, NT, ND, bowel sounds present. Assessment and plan 77-year-old male with extensive past medical history as mentioned above presented in ER for concern of elevated blood pressure. Other than elevated blood pressure he does not have any other complaint including chest pain, chest tightness, palpitation, lightheadedness, dizziness, nausea, vomiting, shoulder pain, diaphoresis. Complete physical examination unremarkable but ECG shows ST depression in V3, V4, V5 with multiple PVCs. Labs unremarkable including troponin. Patient was recently admitted for NSTEMI considered secondary to demand ischemia secondary to dehydration. Patient has significant CAD in RCA not amenable for PCI according to cardiology note. Patient was also admitted in October for an STEMI secondary to hypertensive urgency and type II MS. In this situation of severe CAD that patient has, current ECG changes will benefit hospitalization to follow-up closely even though patient does not have any symptoms. He will benefit from cardiology evaluation. There is a small possibility of silent MS as he has a history of diabetes, may have neuropathy. ECG syringes could be repolarization abnormality secondary to his mild elevation in blood pressure at the time of arrival in ER, 184/81 or tachycardia related: His heart rate was 110 + Elevated blood pressure + ECG changes ST depression in PVCs + History of HTN, CVA with residual left-sided weakness, DM, CAD S/P coronary cath in November 2017 without successful stent placement, personable history of A. fib, rheumatoid arthritis - Admit to telemetry - Continuous telemetry monitoring - Serial troponin and EKGs - Cardiology consult in a.m. - Continue aspirin, statin, - Continue rest of his home medication, change oral hypoglycemics to sliding scale insulin
--- NOTE | 2018-03-08 05:31 | Admission Certification ---
Admission Certification Certification Statement - As attending physician, I certify that at the time of - admission, based on clinical presentation, severity of - symptoms, need for further diagnostic testing and - therapeutic interventions, and risk of adverse outcomes - without in-hospital treatment, in my clinical assessment, - this patient requires an acute hospital stay for a minimum - of two nights or longer. I have also considered psychsocial - factors such as support system, advanced age, financial - issues, cognitive issues, and failed out-patient treatments, - past re-admission history, safety of patient, and lack of - compliance as applicable. Specific rationale supporting this admission is: ECG changes
[2018-03-08 06:25] LABS: ABSOLUTE BASOPHIL COUNT 0 /CUMM (0.0-0.2); ABSOLUTE EOSINOPHIL COUNT 0.3 /CUMM (0.0-0.7); ABSOLUTE GRANULOCYTE CT 5.7 /CUMM (1.4-6.5); ABSOLUTE LYMPH COUNT 0.9 /CUMM (1.2-3.4); ABSOLUTE MONOCYTE COUNT 0.7 /CUMM (0.10-0.60); BASOPHIL % 0.1 % (0.0-2.0); EOSINOPHIL % 4.5 % (0-5); GRANULOCYTE % 74.6 % (42.2-75.2); HEMATOCRIT 37.7 % (42-52); MEAN CORPUSCULAR HGB 23.9 PG (27.0-31.0); MEAN CORPUSCULAR HGB CONC 30.8 G/DL (33.0-37.0); MEAN CORPUSCULAR VOLUME 77.7 FL (80.0-94.0); MEAN PLATELET VOLUME 9.4 FL (7.4-10.4); PLATELET COUNT 211 /CUMM (130-400); RED BLOOD CELL CT 4.86 /CUMM (4.70-6.10); WHITE BLOOD CELL COUNT 7.6 /CUMM (4.8-10.8)
[2018-03-08 12:42] VITALS: BP 122/80
--- NOTE | 2018-03-08 13:35 | PN- Att Addend ---
Attending Addendum Attending Brief Note 77-year-old male with extensive past medical history as mentioned above presented in ER for concern of elevated blood pressure. Patient with pmh significant CAD in RCA not amenable for PCI. His bp better controlled, cardiology aware. PE unremarkabe, vital and labs noted. 1 Uncontrolled htn 2. Abnormal EKG with non specific ST changes 3 History of HTN, 4. CVA with residual left-sided weakness, 5. DM, 6. CAD S/P coronary cath in November 2017 without successful stent placement. 7. rheumatoid arthritis - Continuous telemetry monitoring - Serial troponin elevation present likely ACS - Cardiology aware - Continue aspirin, statin, anticaogualtion as per cardiology - Continue sliding scale insulin and titrate insulin as needed - cont care as per admitting physician. Admission Lab Results I reviewed the following labs: Laboratory Tests 03/08 03/08 03/08 1153 0612 0611 Chemistry Sodium (137 - 145 mmol/L) 145 Potassium (3.5 - 5.1 mmol/L) 3.6 Chloride (98 - 107 mmol/L) 110 H Carbon Dioxide (22 - 30 mmol/L) 24 Anion Gap (5 - 16) 11 BUN (9 - 20 mg/dL) 12 Creatinine (0.7 - 1.2 mg/dL) 0.7 Estimated GFR (>60 ml/min) > 60 BUN/Creatinine Ratio (7 - 25 %) 17.1 Troponin I (<0.11 ng/ml) 0.25 *H 0.38 *H Hematology CBC w Diff NO MAN DIFF REQ WBC (4.8 - 10.8 /CUMM) 7.6 RBC (4.70 - 6.10 /CUMM) 4.86 Hgb (14.0 - 18.0 G/DL) 11.6 L Hct (42 - 52 %) 37.7 L MCV (80.0 - 94.0 FL) 77.7 L MCH (27.0 - 31.0 PG) 23.9 L MCHC (33.0 - 37.0 G/DL) 30.8 L RDW (11.5 - 14.5 %) 16.0 H Plt Count (130 - 400 /CUMM) 211 MPV (7.4 - 10.4 FL) 9.4 Gran % (42.2 - 75.2 %) 74.6 Lymphocytes % (20.5 - 51.1 %) 11.9 L Monocytes % (1.7 - 9.3 %) 8.9 Eosinophils % (0 - 5 %) 4.5 Basophils % (0.0 - 2.0 %) 0.1 Absolute Granulocytes (1.4 - 6.5 /CUMM) 5.7 Absolute Lymphocytes (1.2 - 3.4 /CUMM) 0.9 L Absolute Monocytes (0.10 - 0.60 /CUMM) 0.7 H Absolute Eosinophils (0.0 - 0.7 /CUMM) 0.3 Absolute Basophils (0.0 - 0.2 /CUMM) 0 03/08 03/07 0608 2340 Chemistry Sodium (137 - 145 mmol/L) 144 Potassium (3.5 - 5.1 mmol/L) 3.7 Chloride (98 - 107 mmol/L) 107 Carbon Dioxide (22 - 30 mmol/L) 25 Anion Gap (5 - 16) 12 BUN (9 - 20 mg/dL) 16 Creatinine (0.7 - 1.2 mg/dL) 0.9 Estimated GFR (>60 ml/min) > 60 BUN/Creatinine Ratio (7 - 25 %) 17.8 Glucose (65 - 99 mg/dL) 177 H Calcium (8.4 - 10.2 mg/dL) 9.0 Magnesium (1.6 - 2.3 mg/dL) 2.0 Total Bilirubin (0.2 - 1.3 mg/dL) 0.3 AST (17 - 59 U/L) 37 ALT (21 - 72 U/L) 36 Alkaline Phosphatase (< 127 U/L) 54 Troponin I (<0.11 ng/ml) Cancelled 0.04 Total Protein (6.3 - 8.2 g/dL) 6.9 Albumin (3.5 - 5.0 g/dL) 3.7 Globulin (1.9 - 4.2 gm/dL) 3.2 Albumin/Globulin Ratio (1.1 - 2.2 %) 1.2 TSH &T3 &Free T4 Intrp (0.27 - 4.20 uIU/mL) 2.160 Hematology CBC w Diff NO MAN DIFF REQ WBC (4.8 - 10.8 /CUMM) 7.9 RBC (4.70 - 6.10 /CUMM) 4.89 Hgb (14.0 - 18.0 G/DL) 12.0 L Hct (42 - 52 %) 38.0 L MCV (80.0 - 94.0 FL) 77.7 L MCH (27.0 - 31.0 PG) 24.5 L MCHC (33.0 - 37.0 G/DL) 31.6 L RDW (11.5 - 14.5 %) 16.1 H Plt Count (130 - 400 /CUMM) 217 MPV (7.4 - 10.4 FL) 9.2 Gran % (42.2 - 75.2 %) 79.8 H Lymphocytes % (20.5 - 51.1 %) 8.7 L Monocytes % (1.7 - 9.3 %) 7.8 Eosinophils % (0 - 5 %) 3.6 Basophils % (0.0 - 2.0 %) 0.1 Absolute Granulocytes (1.4 - 6.5 /CUMM) 6.3 Absolute Lymphocytes (1.2 - 3.4 /CUMM) 0.7 L Absolute Monocytes (0.10 - 0.60 /CUMM) 0.6 Absolute Eosinophils (0.0 - 0.7 /CUMM) 0.3 Absolute Basophils (0.0 - 0.2 /CUMM) 0 Toxicology Acetone Level (NEGATIVE) NEGATIVE Admission Meds I reviewed the following Meds: Current Medications Sig/Kyaw Start time Last Medication Dose Stop Time Status Admin Atorvastatin Calcium 80 MG 1700 03/08 1700 AC (Lipitor) Carvedilol 6.25 MG BID 03/08 09 AC 03/08 (Coreg) 0900 Clopidogrel Bisulfate 75 MG DAILY 03/08 09 AC 03/08 (Plavix) 0900 Enoxaparin Sodium 40 MG DAILY 03/08 09 AC (Lovenox) Enoxaparin Sodium 0 .STK-MED ONE 03/08 0839 CAN (Lovenox) Folic Acid 1 MG DAILY 03/08 0900 AC 03/08 (Folic Acid) 0900 Heparin Sodium 25,000 UNIT Q24H 03/08 0745 AC 03/08 (Porcine) 0820 (Heparin) Sodium Chloride 500 ML Insulin Aspart 0 TIDAC 03/08 0800 AC (NovoLOG) Lisinopril 40 MG DAILY 03/08 0900 AC 03/08 (Prinivil) 0900 Methotrexate 15 MG QWED 03/14 0900 AC (Methotrexate 2.5MG Tab) Metoprolol Succinate 25 MG DAILY 03/08 0900 CAN (Toprol XL) Nifedipine 60 MG DAILY 03/08 09 AC 03/08 (Procardia XL) 0900 Omeprazole 20 MG DAILY AC 03/08 0700 AC 03/08 (Prilosec) 0714 Prednisone 5 MG DAILY 03/08 0900 AC 03/08 0900
[2018-03-08 15:44] LABS: PTT 47 SEC (25-37)
--- NOTE | 2018-03-08 17:44 | Cons- Cardiology ---
General Information and HPI Consulting Request Date of Consult: 03/08/18 Requested By: Kiarra Mclain MD History of Present Illness: Vincent is a 77 year old male with history of hypertension, dyslipidemia, diabetes and remote tobacco abuse. He also carries a history of stroke in 2005. For the past two years he has noted an epigastric discomfort that does seem to be relieved by antacids. He was recently seen at [facility] for mild nausea with weakness and shakiness. In consideration of an elevated troponin this patient was presumed to have these symptoms due to coronary artery disease. He underwent a cardiac catheterization which showed two tandem 99% stenoses in the RCA. There was also a 50%n stenosis in the LAD. The RCA stenoses were not amenable to PCI and medical therapy was opted for. Yesterday, this patient noted a brief run of rapid palpitations which prompted him to check his blood pressure. It was severely elevated despite him taking his medications faithfully. He denies ny chest pain, pressure, tightness, shortness of breath or lightheadedness. His ECG did disclose multiple PVC's along with ischemic ST depressions in the precordial leads and his cardiac enzymes were mildly elevated. His ECG and enzymes are now improved. It may be recalled that this patient previously reported recurrent episodes of epigastric discomfort about two hours after eating. He also had loose stools although no watery diarrhea. Due to concern for both renal artery stenosis and mesenteric ischemia he underwent a prior CT angiogram that did not show any flow limiting disease. Allergies/Medications Allergies: Coded Allergies: aspirin (SOB 11/02/16) Home Med List: Atorvastatin Calcium 80 MG TABLET 1 TAB PO DAILY Cholesterol . Clopidogrel Bisulfate (Clopidogrel) 75 MG TABLET 1 TAB PO DAILY BLOOD THINNER (Reported) Folic Acid 1 MG TABLET 1 TAB PO DAILY SUPPLEMENT (Reported) Glipizide 5 MG TABLET 1 TAB PO DAILY DIABETES (Reported) Lisinopril (Zestril) 40 MG TABLET 1 TAB PO DAILY Blood pressure . Magnesium Citrate (Citrate Of Magnesia) 300 ML SOLUTION 296 ML PO ONCE PRN CONSTIPATION Methotrexate 2.5 MG TABLET 6 TAB PO QWED RA (Reported) Metoprolol Succinate 25 MG TAB 1 TAB PO DAILY HEART (Reported) Mometasone Furoate (Nasonex) 50 MCG SPRAY.PUMP 2 SPRAY NASB DAILY PRN congestion Nifedipine (Nifedipine ER) 60 MG TAB.ER.24 1 TAB PO DAILY htn (Reported) Nitroglycerin (Nitrostat) 0.4 MG TAB.SUBL 1 TAB SL AD PRN chest pain 1st sign of attack;may repeat every 5 mins until relief; if pain still after 3 tabs in 15 minS, medical attN Omeprazole Magnesium (Prilosec Otc) 20 MG TABLET.DR 1 TAB PO DAILY GASTRITIS Prednisone 5 MG TABLET 1 TAB PO DAILY RA (Reported) Sitagliptin Phosphate (Januvia) 50 MG TABLET 50 MG PO DAILY DIABETES ( Reported) Review of Systems Review of Systems: A review of systems is unremarkable. 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 no Functional Ability ADLs Independent: dressing, eating, toileting, bathing. Ambulation: independent IADLs Independent: shopping, housework, finances, food prep, telephone, transportation , medication admin. Exam & Diagnostic Data Vital Signs and I&O Vital Signs Date Time Temp Pulse Resp B/P B/P Pulse O2 O2 Flow FiO2 Mean Ox Delivery Rate 03/08 1242 98.7 57 18 122/80 98 Room Air 03/08 1125 98.8 64 20 143/81 98 Room Air 03/08 0900 99.0 69 20 156/75 03/08 0900 99.0 69 20 156/75 03/08 0900 99.0 69 20 156/75 03/08 0818 99.0 69 20 156/75 98 Room Air 03/08 0617 97.6 72 18 162/79 96 Room Air Room Air 03/08 0000 95 Room Air Room Air 03/07 2257 144/58 03/07 2254 98.0 110 95 184/81 Intake & Output 03/08 1600 03/08 0800 03/08 0000 03/07 1600 03/07 0800 03/07 0000 Intake Total 360 Output Total 700 1000 Balance -340 -1000 Intake, Oral 360 Output, Urine 700 1000 Patient 186 lb 187 lb Weight Weight Bed scale Reported by Patient Measurement Method Physical Exam: General: WD/WN male in NAD; alert and oriented x 3 HEENT: NC/AT, PERRL, EOMI Neck: no JVD, no carotid bruit Heart: RRR with 2/6 systolic murmur Lungs: clear bilaterally Abdomen: soft, NT, +ve bowel sounds Extremities: no edema Assessment/Plan Assessment/Plan * This patient has a known 99% RCA lesion although he does have collateral flow. The lesion is not amenable to percutaneous intervention and bypass surgery is not indicated for a single vessel; especially and RCA with collaterals in a patient without chest pain. I suspect that this 99% stenosis closed completely. Nevertheless, we do need to consider LAD disease since he has precordial ST depressions and was also known to have a 50% LAD lesion. It should be noted that , unlike ST elevations, ST depressions do not localized the pathology well. Finally, subendocardial ischemia from severe hypertension needs to be considered. For now we will begin IV heparin and continue Plavix and a statin. Follow cardiac enzymes until they peak and obtain an echocardiogram to look for regional wall motion abnormalities. Continue a NTG patch. If chest discomfort, I will have a low threshold for repeating a cardiac catheterization. * This patient had a severe hypertensive excursion. In this setting he likely had subendocardial ischemia with decreased perfusion from a severe rise in afterload. This resulted in PVC's. This patient needs to engage in a low sodium diet. We will stop Metoprolol in favor of Coreg 6.25mg BID which will hopefully control his pressure a bit better. Consult Acknowledgment - Thank you for your consult request.
[2018-03-08 20:45] VITALS: BP 132/76
[2018-03-08 23:31] LABS: PTT 118 SEC (25-37)
[2018-03-09 07:23] VITALS: BP 98/62
[2018-03-09 08:20] LABS: PTT 82 SEC (25-37)
--- NOTE | 2018-03-09 10:35 | PN- Housestaff ---
Matt REID,Ismail 03/09/18 1034: Subjective Follow-up For: HTN Abnormal ST Mild elevated Trops Subjective: Afebrile, hemodynamically stable but mildly hypotensive and mildly bradycardic. Saturating well on room air. He is sitting on chair looks relaxed and comfortable. Denies chest pain, shortness breath, or any other current active complaints Review of Systems Constitutional: Reports: no symptoms, see HPI. Objective Last 24 Hrs of Vital Signs/I&O Vital Signs Date Time Temp Pulse Resp B/P B/P Pulse O2 O2 Flow FiO2 Mean Ox Delivery Rate 03/09 933 106/64 03/09 933 106/64 03/09 933 10603/09 0723 98.3 54 18 98/62 96 Room Air 03/08 2045 99.0 57 18 132/76 96 Room Air 03/08 2044 57 132/76 Intake & Output 03/09 1600 03/09 0800 03/09 0000 Intake Total 100 70 Output Total 250 125 Balance -150 -55 Intake, IV 100 70 Output, Urine 250 125 Patient 88.904 kg Weight Weight Bed scale Measurement Method Physical Exam General Appearance: Alert, Oriented X3, Cooperative, No Acute Distress Skin: No Rashes HEENT: Atraumatic, PERRLA, EOMI, Mucous Membr. moist/pink Neck: No JVD Cardiovascular: Regular Rate, Normal S1, Normal S2, 2/6 systolic murmur Lungs: Clear to Auscultation, Normal Air Movement Abdomen: Soft, No Tenderness Current Medications: Current Medications Sig/Kyaw Start time Last Medication Dose Route Stop Time Status Admin Atorvastatin Calcium 80 MG 1700 03/08 1700 AC 03/08 PO 1659 Carvedilol 6.25 MG BID 03/08 900 AC 03/09 PO 0933 Clopidogrel Bisulfate 75 MG DAILY 03/08 09 AC 03/09 PO 0807 Enoxaparin Sodium 40 MG DAILY 03/08 900 AC SC Folic Acid 1 MG DAILY 03/08 900 AC 03/09 PO 0807 Heparin Sodium 2,500 UNIT ONCE ONE 03/08 1630 DC 03/08 (Porcine) IV 03/08 1631 1658 Heparin Sodium 5,000 UNIT .STK-MED ONE 03/08 1555 DC (Porcine) IV 03/08 1556 Heparin Sodium 25,000 UNIT Q24H 03/08 0745 DC 03/08 (Porcine) IV 0820 Sodium Chloride 500 ML Insulin Aspart 0 TIDAC 03/08 08 AC 03/09 SC 1145 Lisinopril 40 MG DAILY 03/08 09 AC 03/09 PO 0933 Methotrexate 15 MG QWED 03/14 0900 AC PO Nifedipine 60 MG DAILY 03/08 900 AC 03/08 PO 0900 Omeprazole 20 MG DAILY AC 03/08 07 AC 03/09 PO 0623 Prednisone 5 MG DAILY 03/08 09 AC 03/09 PO 0807 Last 24 Hrs of Lab/Marco Results Last 24 Hrs of Labs/Mics: Laboratory Tests 03/09/18 0704: APTT 82 H 03/08/18 2250: APTT 118 *H 03/08/18 1455: APTT 47 H Assessment/Plan Assessment: This is a 77-year-old male with extensive cardiac past medical history includes recent catheterization that showed 99% RCA lesion but with fairly sufficient collateral flow who presented to the ED after he checked his blood pressure at home and found it to be elevated. On the ED he was found to have mildly elevated troponin peaked at 0.35. Problem list: * Hypertension * Mild elevated troponin, with ST depression on V3 to V5, likely had subendocardial ischemia with decreased perfusion from a severe rise in afterload (HTN on presentation) * CAD w/ 99% RCA lesion not candidate for stenting * T2DM * GERD Plan:We'll * Continue monitoring telemetry * Continue carvedilol 6.25 (switched from home dose of metoprolol) * Continue lisinopril 40 mg daily * Hold home dose of nifedipine given hypotension * We'll DC heparin as per cardiology * NTG patch as needed for CP * Fingerstick, diabetic diet, insulin SS. * Continue PPI * DVT prophylaxis with Lovenox * Heart healthy diet * Full code Problem List: 1. Hypertension Pain Ratin Pain Location: na Pain Goal: Remain pain free Pain Plan: See A&P Tomorrow's Labs & Rationales: BEP to follow K, if pt stays Katrina Ghotra 03/09/18 1049: Attending MD Review Statement Attending Statement Attending MD Statement: examined this patient, discuss w/resident/PA/PIANO CASE MAKER, agreed w/resident/PA/PIANO CASE MAKER, discussed with family, reviewed EMR data (avail), discussed with nursing, discussed with case mgmt, reviewed images, amended to note Attending Assessment/Plan: Patient seen/examined bedside. Patient denies any new complaints, denies juanis pain, shortness of rbeath on exertion, palpiations. Patient seen by cardiology and further recommendations based on cardiac catheterization as per cardiology. His serial cardiac enzymes trending down. Anticoagulation stopped. His bP well controlled on present regimen. Patient can be dsichared home today with close outpatient f/u with cardiology for cath.
[2018-03-09 14:47] VITALS: BP 118/60
--- NOTE | 2018-03-09 14:47 | PN- Cardiology ---
Subjective Subjective: * No chest discomfort, shortness of breath or lightheadedness. * Sinus rhythm * Blood pressure is in the low 90's this morning. * cardiac enzymes trended down Objective Vital Signs and I&Os Vital Signs Date Time Temp Pulse Resp B/P B/P Pulse O2 O2 Flow FiO2 Mean Ox Delivery Rate 03/09 933 106/64 03/09 0933 106/64 03/09 0933 106/64 03/09 0723 98.3 54 18 98/62 96 Room Air 03/08 2045 99.0 57 18 132/76 96 Room Air 03/084 57 132/76 Intake & Output 03/09 0803/09 0000 03/08 1600 03/08 0000 Intake Total 100 70 360 Output Total 250 497 134 2535 Balance -150 -55 -340 -1000 Intake, IV 100 70 Intake, Oral 360 Output, Urine 250 156 680 3400 Patient 196 lb 186 lb 187 lb Weight Weight Bed scale Bed scale Reported by Patient Measurement Method Physical Exam: General: WD/WN male in NAD; alert and oriented x 3 HEENT: NC/AT, PERRL, EOMI Neck: no JVD, no carotid bruit Heart: RRR with 2/6 systolic murmur Lungs: clear bilaterally Abdomen: soft, NT, +ve bowel sounds Extremities: no edema Assessment/Plan Assessment/Plan * This patient has a known 99% RCA lesion although he does have collateral flow. The lesion is not amenable to percutaneous intervention and bypass surgery is not indicated for a single vessel; especially and RCA with collaterals in a patient without chest pain. I suspect that this 99% stenosis closed completely. Nevertheless, we do need to consider LAD disease since he has precordial ST depressions and was also known to have a 50% LAD lesion. It should be noted that , unlike ST elevations, ST depressions do not localized the pathology well. Finally, subendocardial ischemia from severe hypertension needs to be considered. At this point we can stop IV heparin but continue Plavix and his statin. Continue a NTG patch. If recurrent chest discomfort, I will have a low threshold for repeating a cardiac catheterization. At present he appears to be comfortable. * This patient had a severe hypertensive excursion. In this setting he likely had subendocardial ischemia with decreased perfusion from a severe rise in afterload. This resulted in PVC's. This patient needs to engage in a low sodium diet. We stopped Metoprolol in favor of Coreg 6.25mg BID and his blood pressure is now well controlled to borderline low. Nifedipine was held this morning which may be due to overmedication with two beta blockers i.e. Metoprolol and Coreg. We will monitor him for another day and with the goal of giving all his prescribed medications. If he has symptomatic hypotension tomorrow then we will stop his nifedipine but if his blood pressure is well controlled between 90 and 120mmHg then he should be discharged to home with follow up in the office in one week. Continue telemetry? Yes
--- NOTE | 2018-03-09 17:51 | ECHOCARDIOGRAM REPORT ---
TIP BROOKS Age: 77 : 1940 Gender: M Exam Date: 03/08/2018 18:19 Exam Location: [place] Ht (in): 69 Wt (lb): 185 BSA: 2.04 BP: 156 / 75 Ordering Physician: Mariam Gutierrez MD Referring Physician: Jose Morales MD, PhD Technologist: Maura Gupta [facility] Room Number: [id number] Indications: EVALUATION OF ASCENDING AORTA Rhythm: Sinus Technical Quality: good FINDINGS Left Ventricle Normal left ventricular size with mild left ventricular hypertrophy. Normal systolic function with no obvious regional wall motion abnormalities. Diastolic filling pattern is consistent with impaired LV relaxation. The ejection fraction is visually estimated at 60%. Right Ventricle The right ventricle is normal in size and function. Right Atrium The right atrium is normal in size. Left Atrium The left atrium is normal in size. The interatrial septum is intact. Mitral Valve The mitral valve is normal in structure and function. There is trace to mild mitral regurgitation. Aortic Valve Mildly sclerotic aortic valve without significant stenosis. There is trace aortic regurgitation. Tricuspid Valve The tricuspid valve is normal in structure and function. There is mild tricuspid regurgitation. Pulmonary artery systolic pressure is normal. Pulmonic Valve Structurally normal pulmonic valve. There is no pulmonic regurgitation. Pericardium Normal pericardium without effusion. No pleural effusion. Great Vessels Normal aortic root dimension. The aortic arch and great vessels are well seen and are normal. CONCLUSIONS 1. Normal EF of 60% with impaired LV relaxation. 2. Mild left ventricular hypertrophy. 3. Trace to mild mitral regurgitation. 4. Mild tricuspid regurgitation. 5. Trace aortic insufficiency. Jose Morales M.D. (Electronically Signed) Final Date: 09 Mar 2018 17:50 MEASUREMENTS (Male / Female) Normal Values 2D ECHO LV Diastolic Diameter PLAX 3.5 cm 4.2 - 5.9 / 3.9 - 5.3 cm LV Systolic Diameter PLAX 2.1 cm 2.1 - 4.0 cm LV Fractional Shortening PLAX 40.0 % 25 - 46 % LV Ejection Fraction 2D Teich 71.7 % IVS Diastolic Thickness 1.4 cm LVPW Diastolic Thickness 1.4 cm LV Relative Wall Thickness 0.8 RV Internal Dim ED PLAX 3.0 cm 1.9 - 3.8 cm LVOT Diameter 2.1 cm Aortic Root Diameter 3.4 cm LA Systolic Diameter LX 3.9 cm 3.0 - 4.0 / 2.7 - 3.8 cm LA Volume 59.0 cm 18 - 58 / 22 - 52 cm Ascending Aorta Diameter 3.7 cm DOPPLER AV Peak Velocity 153.0 cm/s AV Peak Gradient 9.4 mmHg AV Mean Velocity 110.0 cm/s AV Mean Gradient 5.0 mmHg AV Velocity Time Integral 35.1 cm LVOT Peak Velocity 144.0 cm/s LVOT Peak Gradient 8.3 mmHg LVOT Mean Velocity 93.6 cm/s LVOT Mean Gradient 4.0 mmHg LVOT Velocity Time Integral 31.1 cm LVOT Stroke Volume 107.7 cm AV Area Cont Eq vti 3.1 cm AV Area Cont Eq pk 3.3 cm MV Peak Velocity 115.0 cm/s MV Peak Gradient 5.3 mmHg MV Mean Velocity 51.6 cm/s MV Mean Gradient 1.0 mmHg Mitral E Point Velocity 90.3 cm/s Mitral A Point Velocity 107.0 cm/s Mitral E to A Ratio 0.8 MV PHT Velocity 106.0 cm/s MV Deceleration Lamar 419.0 cm/s MV Pressure Half Time 75.9 ms MV Area PHT 2.9 cm MV Deceleration Time 285.0 ms TR Peak Velocity 223.0 cm/s TR Peak Gradient 19.9 mmHg Right Atrial Pressure 5.0 mmHg Pulmonary Artery Systolic Pressu 24.9 mmHg Right Ventricular Systolic Press 24.9 mmHg PV Peak Velocity 119.0 cm/s PV Peak Gradient 5.7 mmHg PV Mean Velocity 85.2 cm/s PV Mean Gradient 3.0 mmHg PV Velocity Time Integral 28.4 cm LV E' Lateral Velocity 9.8 cm/s Mitral E to LV E' Lateral Ratio 9.3 LV E' Septal Velocity 6.5 cm/s Mitral E to LV E' Septal Ratio 13.8
[2018-03-09 22:31] VITALS: BP 132/78
[2018-03-10 06:52] VITALS: BP 120/70
[2018-03-10 08:07] VITALS: BP 120/72
[2018-03-10] MEDS ORDERED: CARVEDILOL6.25 M1 PO (08:56)
--- NOTE | 2018-03-10 08:59 | PN- Housestaff ---
See Addendum Subjective Follow-up For: -HTN -Abnormal ST -Mild elevated Trops Subjective: Afebrile, hemodynamically stable and saturating well on RA. He is sitting on chair looks relaxed and comfortable. Denies chest pain, shortness breath, or any other current active complaints. Nifedipine was held yesterday morning, he was given carvedilol and lisinopril. His blood pressure is been stable since then around 120/70. Review of Systems Constitutional: Reports: no symptoms, see HPI. Objective Last 24 Hrs of Vital Signs/I&O Vital Signs Date Time Temp Pulse Resp B/P B/P Pulse O2 O2 Flow FiO2 Mean Ox Delivery Rate 03/10 0807 120/72 03/10 0652 98.2 50 18 120/70 97 Room Air 03/09 2231 99.1 50 18 132/78 97 Room Air 03/09 2156 64 132/78 03/09 1447 99.0 55 18 118/60 97 Room Air Intake & Output 03/10 1600 03/10 0800 03/10 0000 Intake Total Output Total Balance Patient 87.997 kg Weight Weight Bed scale Measurement Method Physical Exam General Appearance: Alert, Oriented X3, Cooperative, No Acute Distress Skin: No Rashes HEENT: Atraumatic, PERRLA, EOMI, Mucous Membr. moist/pink Neck: No JVD Cardiovascular: Regular Rate, Normal S1, Normal S2, 2/6 systolic murmur Lungs: Clear to Auscultation, Normal Air Movement Abdomen: Soft, No Tenderness Neurological: Normal Speech Current Medications: Current Medications Sig/Kyaw Start time Last Medication Dose Route Stop Time Status Admin Atorvastatin Calcium 80 MG 1700 03/08 1700 AC 03/09 PO 1605 Carvedilol 6.25 MG BID 03/08 900 AC 03/09 PO 2156 Clopidogrel Bisulfate 75 MG DAILY 03/08 900 AC 03/10 PO 0807 Docusate Sodium 100 MG DAILY NEEDED PRN 03/10 0615 AC 03/10 PO 0608 Enoxaparin Sodium 40 MG DAILY 03/08 900 AC 03/10 SC 0806 Folic Acid 1 MG DAILY 03/08 900 AC 03/10 PO 0807 Insulin Aspart 0 TIDAC 03/08 800 AC 03/09 SC 1731 Lisinopril 40 MG DAILY 03/08 900 AC 05/12 PO 0807 Methotrexate 15 MG QWED 03/14 0900 AC PO Nifedipine 60 MG DAILY 03/08 0900 DC 03/08 PO 0900 Omeprazole 20 MG DAILY AC 03/08 0700 AC 03/10 PO 0608 Patient Medication 1 ED ONE ONE 03/09 1345 DC Teaching ED 03/09 1346 Polyethylene Glycol 17 GM DAILY 03/10 0900 AC 03/10 PO 0809 Potassium Chloride 40 MEQ ONCE ONE 03/09 1245 DC 03/09 PO 03/09 1246 1323 Prednisone 5 MG DAILY 03/08 0900 AC 03/10 PO 0807 Assessment/Plan Assessment: 77-year-old male with extensive cardiac PMH includes recent cath that showed 99% RCA lesion but with fairly sufficient collateral flow, the lesion is not amenable to stenting and CABG is not indicated for a single vessel. The pt presented because of elevated blood pressure at home. On the ED he was found to have mildly elevated troponin peaked at 0.35, given his history he was admitted to rule out ACS. He was initially treated with IV heparin until troponin trended down. Appreciate cardiology evaluation and recommendations, patient likely had some endocardial ischemia with decreased perfusion from a HTN and high afterload. The patient was admitted 3 time in 2018 for uncontrolled HTN. Initially during this admission he was given lisinopril 40 mg, nifedipine 60 mg, and carvedilol 6.25 mg twice a day. In the next morning his blood pressure was found 90s over 60s with a heart rate in 40s to 50s. So his nifedipine was held and lisinopril and carvedilol was continued. His blood pressure was within normal limits and stable through the night for which we will not discharge him on nifedipine, he was still found to be bradycardic again Problem list: * Hypertension * Type II non-ST segment elevation myocardial infarction in the setting of a high demand and decreased perfusion from a severe rise in afterload (HTN on presentation) * CAD w/ 99% RCA lesion not candidate for stenting * T2DM * GERD * Rheumatoid arthritis Plan:We'll * Patient's blood pressure is controlled with lisinopril and carvedilol, given bradycardia the patient will be discharged on only lisinopril and instructed to follow with molding room supervisor Dr. Morales within less than a week. * Continue lisinopril 40 mg daily * DC carvedilol and nifedipine * Continue NTG patch as needed for CP * Fingerstick, diabetic diet, insulin SS. * Continue PPI * Continue home dose of methotrexate, prednisone 5 mg, and folic acid * DVT prophylaxis with Lovenox * Heart healthy diet * Full code Problem List: 1. Hypertension Pain Ratin Pain Location: na Pain Goal: Remain pain free Pain Plan: See A&P Tomorrow's Labs & Rationales: none as most likely Dc later today
--- NOTE | 2018-03-10 08:59 | Patient Discharge Instructions ---
Discharge Instructions General Discharge Information You were seen/treated for: High blood pressure Special Instructions: please take all medication as prescribed please follow with cardilogy within 1-2 weeks. please come back if can't breath or if you have chest pain Diet Continue normal diet: Yes Recommended Diet: Heart Healthy Activity Full Activity/No Limits: Yes Activity Self Limited: Yes Acute Coronary Syndrome Inclusion Criteria At DC or during hospital stay patient has or had the following: ACS DIAGNOSIS No Discharge Core Measures Meds if any: Prescribed or Continued at Discharge Meds if any: NOT Prescribed or Continued at Discharge Congestive Heart Failure Inclusion Criteria At DC or during hospital stay patient has or had the following: CHF DIAGNOSIS No Discharge Core Measures Meds if any: Prescribed or Continued at Discharge Meds if any: NOT Prescribed or Continued at Discharge Cerebrovascular accident Inclusion Criteria At DC or during hospital stay patient has or had the following: CVA/TIA Diagnosis No Discharge Core Measures Meds if any: Prescribed or Continued at Discharge Meds if any: NOT Prescribed or Continued at Discharge Venous thromboembolism Inclusion Criteria VTE Diagnosis No VTE Type NONE VTE Confirmed by (Test) NONE Discharge Core Measures - Per Current guidelines, there needs to be overlap - treatment for the first 5 days of Warfarin therapy. - If discharged on Warfarin prior to 5 days of - overlap therapy, the patient will need to be - assessed for post discharge needs including - *Post discharge parental anticoagulation - *Warfarin and/or parental anticoagulation education - *Follow up date to check INR post discharge At least 5 days overlap therapy as Inpatient No Meds if any: Prescribed or Continued at Discharge Note: Overlap Therapy is Warfarin and Anticoagulant Meds if any: NOT Prescribed or Continued at Discharge
--- NOTE | 2018-03-10 11:01 | PN- Cardiology ---
Subjective Subjective: The patient is awake, alert Telemetry demonstrates continued bradycardia with heart rates of 40s-50s The events of the last 24 hours as well as telemetry were reviewed. Review of Systems: The review of systems is negative for chest pains, palpitations nor lightheadedness. The remainder of the 14 point review of systems is noncontributory with the exception of above. Objective Vital Signs and I&Os Vital Signs Date Time Temp Pulse Resp B/P B/P Pulse O2 O2 Flow FiO2 Mean Ox Delivery Rate 03/10 0807 120/72 03/10 0652 98.2 50 18 120/70 97 Room Air 03/09 2231 99.1 50 18 132/78 97 Room Air 03/09 2156 64 132/78 03/09 1447 99.0 55 18 118/60 97 Room Air Intake & Output 03/10 1600 03/10 0800 03/10 0000 03/09 1600 03/09 0800 03/09 0000 Intake Total 400 100 70 Output Total 450 250 125 Balance -50 -150 -55 Intake, IV 100 70 Intake, Oral 400 Output, Urine 450 250 125 Patient 194 lb 196 lb Weight Weight Bed scale Bed scale Measurement Method Physical Exam: General: Nontoxic, no apparent distress. HEENT: Sclera and conjunctiva within normal limits, without xanthelasmas. Neck: Carotids 2+ without bruits. Respiratory: Clear to auscultation, air movement is good, without accessory respiratory muscle use. Heart: Regular rate and rhythm, without murmurs, without JVD. Abdomen: Soft, nontender, no masses, normoactive bowel sounds. Extremities: Without clubbing, cyanosis, without edema. Neuro: Nonfocal exam, strength, 5 out of 5 Skin: Within normal limits without lesions. Psych: Mood and affect: Normal Current Medications: Current Medications Sig/Kyaw Start time Last Medication Dose Route Stop Time Status Admin Atorvastatin Calcium 80 MG 1700 03/08 1700 AC 03/09 PO 1605 Carvedilol 6.25 MG BID 03/08 900 AC 03/09 PO 2156 Clopidogrel Bisulfate 75 MG DAILY 03/08 900 AC 03/10 PO 0807 Docusate Sodium 100 MG DAILY NEEDED PRN 03/10 0615 AC 03/10 PO 0608 Enoxaparin Sodium 40 MG DAILY 03/08 900 AC 03/10 SC 08 Folic Acid 1 MG DAILY 03/08 900 AC 03/10 PO 0807 Insulin Aspart 0 TIDAC 03/08 800 AC 03/09 VT 1731 Lisinopril 40 MG DAILY 03/08 900 AC 03/10 PO 08 Methotrexate 15 MG QWED 03/14 09 AC PO Nifedipine 60 MG DAILY 03/08 900 DC 03/08 PO 0900 Omeprazole 20 MG DAILY AC 03/08 700 AC 03/10 PO 0608 Patient Medication 1 ED ONE ONE 03/09 1345 DC Teaching ED 03/09 1346 Polyethylene Glycol 17 GM DAILY 03/10 900 AC 03/10 PO 0809 Potassium Chloride 40 MEQ ONCE ONE 03/09 1245 DC 03/09 PO 03/09 1246 1323 Prednisone 5 MG DAILY 03/08 900 AC 03/10 PO 08 Results Last 48 Hrs of Labs/Mics: Laboratory Tests 03/09/18 0704: APTT 82 H 03/08/18 2250: APTT 118 *H 03/08/18 1455: APTT 47 H 03/08/18 1153: Troponin I 0.25 *H Assessment/Plan Assessment/Plan The patient is a 77-year-old gentleman with a past medical history of significant coronary artery disease (known 99 percent lesion within the RCA, 50% LAD lesion) as well as hypertension. He presented to our hospital following the finding of suboptimally controlled hypertension at home. On arrival, he was noted to have a mildly elevated troponin isoenzyme with an abnormal EKG. Troponin isoenzyme elevation: The patient presents with likely an acute type II non-ST segment elevation myocardial infarction in the setting of a high demand from uncontrolled hypertension in the setting of known significant coronary artery disease. The patient's blood pressures are better controlled at this time and he remains asymptomatic. 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 We will attempt to ambulate the patient and if asymptomatic, may consider discharge to home. Hypertension: Suboptimally controlled on arrival in the setting of multiple medications at home. He quickly became hypotensive however after administering his home regimen in the hospital, raising the suspicion of possible home noncompliance/ medication error. He has well admits to an increased sodium intake at home. At this time, we will further titrate his antihypertensive regimen as an outpatient. Substitution of nifedipine for amlodipine may be considered in an outpatient visit. Given his significant bradycardia however we will discontinue beta-blockers. Continue telemetry? No
--- NOTE | 2018-03-10 12:48 | Discharge Summary ---
Visit Information Visit Dates Admission Date: 03/08/18 Discharge Date: 03/09/18 Hospital Course Course Attending Physician: Katrina Ghotra MD Primary Care Physician: Hu Michelle DO Hospital Course: 77-year-old male with extensive cardiac PMH includes recent cath that showed 99% RCA lesion but with fairly sufficient collateral flow, the lesion is not amenable to stenting and CABG is not indicated for a single vessel. The pt presented because of elevated blood pressure at home. On the ED he was found to have mildly elevated troponin peaked at 0.35, given his history he was admitted to rule out ACS. He was initially treated with IV heparin until troponin trended down. The patient likely had some endocardial ischemia with decreased perfusion from a HTN and high afterload. The patient was admitted 3 time in 2018 for uncontrolled HTN. Initially during this admission he was given lisinopril 40 mg, nifedipine 60 mg, and carvedilol 6.25 mg twice a day. In the next morning his blood pressure was found 90s over 60s with a heart rate in 40s to 50s. So his nifedipine was held and lisinopril and carvedilol was continued. His blood pressure was within normal limits and stable through the night prior to discharge however he was found to be bradycardic. The decision was to discharge him on lisinopril only, carvedilol and negative being was discontinued. The patient was instructed to follow with cardiology within few days to further address the best antihypertensive regimen for him. We continued other home medication includes methotrexate, prednisone 5 mg, and folic acid for RA, insulin and diabetic diet for diabetes, PPI for GERD. Allergies: Coded Allergies: aspirin (SOB 11/02/16) Disposition Summary Disposition Principal Diagnosis: Uncontrolled hypertension Mildly elevated troponin Additional Diagnosis: Diabetes Rheumatoid arthritis Discharge Disposition: home or self care Discharge Instructions General Discharge Information Code Status: Full Code Patient's Diet: Diabetic and heart healthy diet Patient's Activity: As tolerated Follow-Up Instructions/Appts: Please follow with primary care doctor within 1 week Please follow cardiology within less than a week Medications at Discharge Discharge Medications: Stop taking the following medications: Metoprolol Succinate (Metoprolol Succinate) 25 MG TAB ORAL DAILY Qty = 30 Nifedipine (Nifedipine ER) 60 MG TAB.ER.24 ORAL DAILY Continue taking these medications: Methotrexate (Methotrexate) 2.5 MG TABLET 6 Tablet ORAL EVERY WEDNESDAY Qty = 30 Comments: NOT GIVEN IN HOSPITAL Clopidogrel Bisulfate (Clopidogrel) 75 MG TABLET 1 Tablet ORAL DAILY Qty = 30 Comments: Last Taken: 03/10/18 Time: 8AM Prednisone (Prednisone) 5 MG TABLET 1 Tablet ORAL DAILY Qty = 90 Comments: Last Taken: 03/10/18 Time: 8AM Glipizide (Glipizide) 5 MG TABLET 1 Tablet ORAL DAILY Qty = 30 Comments: NOT GIVEN IN HOSPITAL Mometasone Furoate (Nasonex) 50 MCG SPRAY.PUMP [address] Both sides of nose DAILY as needed for congestion Qty = 1 Comments: NOT GIVEN IN HOSPITAL Folic Acid (Folic Acid) 1 MG TABLET 1 Tablet ORAL DAILY Qty = 60 Comments: Last Taken: 03/10/18 Time: 8AM Omeprazole Magnesium (Prilosec Otc) 20 MG TABLET.DR 1 Tablet ORAL DAILY Qty = 30 Comments: Last Taken: 03/10/18 Time: 6AM Nitroglycerin (Nitrostat) 0.4 MG TAB.SUBL 1 Tablet SUBLINGUAL As Directed as needed for chest pain Qty = 25 Instructions: 1st sign of attack;may repeat every 5 mins until relief; if pain still after 3 tabs in 15 minS, medical attN Comments: NOT GIVEN AT THE HOSPITAL Atorvastatin Calcium (Atorvastatin Calcium) 80 MG TABLET 1 Tablet ORAL DAILY Qty = 30 Instructions: . Comments: Last Taken: 03/09/18 Time: 5PM Lisinopril (Zestril) 40 MG TABLET 1 Tablet ORAL DAILY Qty = 30 Instructions: . Comments: Last Taken: 03/10/18 Time: 8AM Sitagliptin Phosphate (Januvia) 50 MG TABLET 50 Milligram ORAL DAILY Comments: NOT GIVEN IN HOSPITAL Copies To: Andrew REID PHD,Jose Don; Hu Michelle DO
== END 2018-03-10 15:40 | DRG 281 ==
LOC: ERH 22:46 → ERHI 03-08 01:34 → 1NO 03-08 01:34 → ENRESERV 03-08 11:21 → ENTRNSPT 03-08 12:03 → EDTRNSPT 03-08 12:22 → EDTRNSPTSTS 03-08 12:22 → 1NO 03-08 12:25 → CMPTRNSPT 03-08 12:41 → 1NO 03-09 09:14 → ENTRNSPT 03-10 15:25 → EDTRNSPTSTS 03-10 15:31 → 1NO 03-10 15:40 → CMPTRNSPT 03-10 16:18
PROVIDERS: Emergency Medicine; Internal Medicine; Student in an Organized Health Care Education/Training Program
DX: I21.A1 Myocardial infarction type 2 (principal); I69.354 Hemiplegia and hemiparesis following cerebral infarction affecting left non-dominant side; E11.9 Type 2 diabetes mellitus without complications; M06.9 Rheumatoid arthritis, unspecified; I25.2 Old myocardial infarction; I49.3 Ventricular premature depolarization; I25.10 Atherosclerotic heart disease of native coronary artery without angina pectoris; K21.9 Gastro-esophageal reflux disease without esophagitis; I10 Essential (primary) hypertension; Z79.84 Long term (current) use of oral hypoglycemic drugs; Z87.891 Personal history of nicotine dependence; Z88.6 Allergy status to analgesic agent
CPT/HCPCS: 1NP; 36415; 36592; 71045; 82436; 93005; 93010; 93306; 99291; J1644; J1650; J3490; J7512